=== PATIENT | male | born 1945 | race Caucasian/White ===

== ENCOUNTER 2021-03-19 13:15 | Emergency (ER) | payer MEDICARE ==
[~2021-03-19] VITALS: Ht 175 cm; Wt 98.6 kg
[~2021-03-19 13:15] MED LIST: ASCO500C14 PO; ASP81TEC PO; CALCIUM 500+VI1 EACH PO; CETI10CA PO; MTP25TSR PO; MULT1CAP27 PO; NAPR220C11 PO; calcium; vitamin c; zyrtec
[2021-03-19] MEDS ORDERED: ONDANSETRON 4 MG/2 ML (SDV) Z0FRAN IVP ONE (13:45)
[2021-03-19 13:51] LABS: BASOPHILS % (AUTO) 0 % (0-10); EOSINOPHILS # (AUTO) 0.2 10^3/uL (0.0-0.3); EOSINOPHILS % (AUTO) 2 % (0-10); HEMATOCRIT 48 % (40-54); HEMOGLOBIN 15.6 g/dL (13.3-17.7); LYMPHOCYTES % (AUTO) 24 % (12-44); MEAN CORPUSCULAR HEMOGLOBIN 29 pg (25-34); MEAN CORPUSCULAR HGB CONC 33 g/dL (32-36); MEAN CORPUSCULAR VOLUME 90 fL (80-99); MEAN PLATELET VOLUME 9.7 fL (9.0-12.2); MONOCYTES # (AUTO) 0.9 10^3/uL (0.0-1.0); MONOCYTES % (AUTO) 11 % (0-12); NEUTROPHILS # (AUTO) 5.2 10^3/uL (1.8-7.8); NEUTROPHILS % (AUTO) 63 % (42-75); PLATELET COUNT 399 10^3/uL (130-400); WHITE BLOOD COUNT 8.3 10^3/uL (4.3-11.0)
--- NOTE | 2021-03-19 13:51 | ED Abdominal Pain ---
General Stated Complaint: ABD FLUID BUILD UP Source of Information: Patient, Family Exam Limitations: No Limitations History of Present Illness Date Seen by Provider: Mar 19, 2021 Time Seen by Provider: 13:25 Initial Comments Patient to the ER by private conveyance with his daughter and chief complaint that he is having some abdominal distention and epigastric abdominal discomfort today. He had a colonoscopy by Dr. Barnes at [place] demonstrating a colon cancer back in October 2020, 5 months ago. He was sent to [facility] and because margins were not resected and it was not marked [facility] could not find the site where the cancer came from on subsequent sigmoidoscopy so he elected not to have any surgery. At a 3-month follow-up it was discovered he had mets to the omentum and he had a PET scan 2 weeks ago. The plan was to initiate chemotherapy locally. They're expecting a call back from local oncology anytime now. He is not having any fevers or chills. He is having some nausea with a little bit of emesis no hematemesis. No diarrhea or constipation. He has a history of diabetes and knee replacement surgically. 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 He did have some of this distention on of last week, 5 days ago but it was not felt bad enough to do anything about. Since it has worsened he was told to present to the ER. He is never had to have his abdomen drained before. No fevers or chills. Patient had some obstipation lately took some MiraLAX and since then has just had small amounts of loose stool. Patient is known to Dr. Phillips and had an echocardiogram in 2014 demonstrating EF of 50%; cardiac catheterization in 2011 demonstrating 20% ostial left main coronary artery stenosis. 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 Normal abdominal aorta. Allergies and Home Medications Allergies Coded Allergies: No Known Drug Allergies (Unverified , 10/24/11) Patient Home Medication List Home Medication List Reviewed: Yes Ascorbic Acid (Vitamin C) 500 Mg Capsule.sa, 500 MG PO DAILY, (Reported) Entered as Reported by: EM RITTER on 11/12/11 1141 Aspirin (Aspirin Ec 81 Mg) 81 Mg Tabec, 81 MG PO DAILY, (Reported) Entered as Reported by: GARRETT ALLISON on 10/24/11 1259 Calcium Carbonate/Vitamin D3 (Calcium 500+Vit D 400 Tab) 1 Each Tablet, 1 EACH PO DAILY, (Reported) Entered as Reported by: EM RITTER on 11/12/11 1141 Cetirizine Hcl (Zyrtec) 10 Mg Capsule, 10 MG PO DAILY, (Reported) Entered as Reported by: EM RITTER on 11/12/11 1141 Metoprolol Succinate (Toprol Xl 25MG) 25 Mg Tab.sr.24h, 25 MG PO DAILY, (Reported) Entered as Reported by: EM RITTER on 11/12/11 1142 Multivitamins (Multivitamins) 1 Each Capsule, 1 EACH PO DAILY, (Reported) Entered as Reported by: GARRETT ALLISON on 10/24/11 1259 Naproxen Sodium (Aleve) 220 Mg Capsule, 220 MG PO TID, (Reported) Entered as Reported by: GARRETT ALLISON on 10/24/11 1259 Ondansetron (Ondansetron Odt) 4 Mg Tab.rapdis, 4 MG PO Q6H PRN for NAUSEA/VOMITING Prescribed by: LUIS FELIPE ORONA on 03/19/21 1641 Review of Systems Review of Systems Constitutional: No chills, No fever; malaise EENTM: No Blurred Vision, No Double Vision Respiratory: Denies Cough, Denies Shortness of Air Cardiovascular: Denies Chest Pain, Denies Lightheadedness Gastrointestinal: See HPI, Abdomen Distended, Abdominal Pain (Bilat [place]); Denies Constipated, Denies Diarrhea; Nausea, Poor Fluid Intake, Vomiting Genitourinary: Denies Burning, Denies Discharge Musculoskeletal: No back pain, No gout Skin: No change in color, No pruritus, No rash Psychiatric/Neurological: Denies Anxiety, Denies Depressed All Other Systems Reviewed Negative Unless Noted: Yes Past Xzteuxl-Cerutm-Wubdtj Hx Patient Social History Tobacco Use?: No Use of E-Cig and/or Vaping dev: No Substance use?: No Alcohol Use?: No Physical Exam Vital Signs Vital Signs - First Documented 03/19/21 13:31 Temp 36.3 Pulse 86 Resp 18 B/P (MAP) 143/72 (95) Pulse Ox 94 O2 Delivery Room Air Capillary Refill : Height/Weight/BMI Height: 5'9.00" Weight: 240lbs. oz. 108.146414kp; BMI Method: General Appearance: WD/WN, mild distress HEENT: PERRL/EOMI, pharynx normal Neck: full range of motion, normal inspection Respiratory: lungs clear, normal breath sounds, no respiratory distress, no accessory muscle use Cardiovascular: normal peripheral pulses, regular rate, rhythm Gastrointestinal: normal bowel sounds, distended (Significant), tenderness (Diffuse, epigastric right upper quadrant without Hicks sign), mass (Midline epigastric region baseball sized), hepatomegaly (Mild), other (No caput medusa) Extremities: normal range of motion, normal capillary refill Neurologic/Psychiatric: alert, normal mood/affect, oriented x 3 Skin: normal color, warm/dry Progress/Results/Core Measures Results/Orders Lab Results Laboratory Tests Test 03/19/21 13:40 03/19/21 16:55 Range/Units White Blood Count 8.3 4.3-11.0 10^3/uL Red Blood Count 5.31 4.30-5.52 10^6/uL Hemoglobin 15.6 13.3-17.7 g/dL Hematocrit 48 40-54 % Mean Corpuscular Volume 90 80-99 fL Mean Corpuscular Hemoglobin 29 25-34 pg Mean Corpuscular Hemoglobin Concent 33 32-36 g/dL Red Cell Distribution Width 15.1 H 10.0-14.5 % Platelet Count 399 130-400 10^3/uL Mean Platelet Volume 9.7 9.0-12.2 fL Immature Granulocyte % (Auto) 1 % Neutrophils (%) (Auto) 63 42-75 % Lymphocytes (%) (Auto) 24 12-44 % Monocytes (%) (Auto) 11 0-12 % Eosinophils (%) (Auto) 2 0-10 % Basophils (%) (Auto) 0 0-10 % Neutrophils # (Auto) 5.2 1.8-7.8 10^3/uL Lymphocytes # (Auto) 2.0 1.0-4.0 10^3/uL Monocytes # (Auto) 0.9 0.0-1.0 10^3/uL Eosinophils # (Auto) 0.2 0.0-0.3 10^3/uL Basophils # (Auto) 0.0 0.0-0.1 10^3/uL Immature Granulocyte # (Auto) 0.0 0.0-0.1 10^3/uL Prothrombin Time 13.6 12.2-14.7 SEC INR Comment 1.0 0.8-1.4 Activated Partial Thromboplast Time 29 24-35 SEC Sodium Level 137 135-145 MMOL/L Potassium Level 4.2 3.6-5.0 MMOL/L Chloride Level 102 98-107 MMOL/L Carbon Dioxide Level 24 21-32 MMOL/L Anion Gap 11 5-14 MMOL/L Blood Urea Nitrogen 13 7-18 MG/DL Creatinine 0.87 0.60-1.30 MG/DL Estimat Glomerular Filtration Rate 85 BUN/Creatinine Ratio 15 Glucose Level 157 H 70-105 MG/DL Calcium Level 10.0 8.5-10.1 MG/DL Corrected Calcium 10.2 H 8.5-10.1 MG/DL Total Bilirubin 0.9 0.1-1.0 MG/DL Aspartate Amino Transf (AST/SGOT) 20 5-34 U/L Alanine Aminotransferase (ALT/SGPT) 21 0-55 U/L Alkaline Phosphatase 75 40-136 U/L C-Reactive Protein High Sensitivity 2.45 H 0.00-0.50 MG/DL Total Protein 6.8 6.4-8.2 GM/DL Albumin 3.8 3.2-4.5 GM/DL Lipase 19 8-78 U/L My Orders Orders - LUIS FELIPE ORONA Ondansetron Injection (Zofran Injectio (03/19/21 13:45) Cbc With Automated Diff (03/19/21 13:41) Comprehensive Metabolic Panel (03/19/21 13:41) Hs C Reactive Protein (03/19/21 13:41) Lipase (03/19/21 13:41) Ua Culture If Indicated (03/19/21 13:41) Protime With Inr (03/19/21 13:41) Partial Thromboplastin Time (03/19/21 13:41) Ct Abdomen/Pelvis W (03/19/21 13:56) Iohexol Injection (Omnipaque 350 Mg/Ml 1 (03/19/21 14:15) Received Contrast (Hold Metformin- Contr (03/19/21 14:15) Sodium Chloride Flush (Catheter Flush Sy (03/19/21 14:15) Ns (Ivpb) (Sodium Chloride 0.9% Ivpb Bag (03/19/21 14:15) Diatrizoate Meglum/Sodium 37% (Gastrogra (03/19/21 14:15) Us Guidance Needle [facility] [id number] (03/19/21 16:24) Body Fluid Culture (03/19/21 16:51) Total Protein,Body Fluid (03/19/21 16:51) Cytology Requistion | Nursing (03/19/21 16:51) Ldh,Body Fluid (03/19/21 16:55) Medications Given in ED Current Medications Medications Dose Ordered Sig/Robert Route Start Time Stop Time Status Last Admin Dose Admin Diatrizoate Meglum/ Diatrizoate Sod 30 ml ONCE ONCE PO 03/19/21 14:15 03/19/21 14:33 DC 03/19/21 15:19 30 ML Iohexol 100 ml ONCE ONCE IV 03/19/21 14:15 03/19/21 14:33 DC 03/19/21 15:19 100 ML Ondansetron HCl 8 mg ONCE ONCE IVP 03/19/21 13:45 03/19/21 13:46 DC 03/19/21 13:53 8 MG Sodium Chloride 10 ml NEEDED PRN IV 03/19/21 14:15 03/19/21 15:19 10 ML Sodium Chloride 100 ml ONCE ONCE IV 03/19/21 14:15 03/19/21 14:33 DC 03/19/21 15:19 80 ML Vital Signs/I&O 03/19/21 13:31 Temp 36.3 Pulse 86 Resp 18 B/P (MAP) 143/72 (95) Pulse Ox 94 O2 Delivery Room Air Progress Progress Note #1: Time: 13:51 Progress Note We will check some labs and get a CT of the abdomen and pelvis. Zofran 8 mg. Oral contrast. Suspect bowel obstruction less likely ascites Progress Note #2: Time: 17:[address] Hough and the medical student drained 3.5 cc of straw-colored serous ascites from the abdomen which significantly increased the comfort of the patient Diagnostic Imaging Diagonstic Imaging: CT (Oral and IV) Plain Films/CT/US/NM/MRI: abdomen, pelvis Comments [facility]. [place], [place] NAME: NORI AVERY [facility] REC#: [id number] PT STATUS: REG ER : 1945 PHYSICIAN: LUIS FELIPE ORONA MD ADMIT DATE: 03/19/21/ER Signed Date of Exam:03/19/21 CT ABDOMEN/PELVIS W PROCEDURE: CT abdomen and pelvis with contrast. TECHNIQUE: Multiple contiguous axial images were obtained through the abdomen and pelvis after administration of intravenous contrast. Auto Exposure Controls were utilized during the CT exam to meet ALARA standards for radiation dose reduction. All CT scans use one or more of the following dose optimizing techniques: automated exposure control, MA and/or KvP adjustment based on patient size and exam type or iterative reconstruction. INDICATION: Colon carcinoma and abdominal distention. COMPARISON: No prior studies are available for comparison. FINDINGS: Imaging through the lung bases demonstrates small left pleural effusion. There is a large amount of ascites in the upper abdomen in the perihepatic and perisplenic location. Small amount of fluid in the right lower quadrant is seen. No significant free fluid in the pelvis is identified. Liver contains a small circumscribed low-attenuation lesion in the left lobe 10 mm in size, indeterminate, too small to characterize. The gallbladder is unremarkable. There is no biliary ductal dilatation. The pancreas and spleen are unremarkable. No adrenal mass is detected. The right kidney is unremarkable. The left kidney contains a cyst measuring 7.8 cm in diameter. Aorta is heavily calcified but nonaneurysmal. There is heavy calcification in the iliac system as well. No central retroperitoneal lymphadenopathy is seen. There appears to be infiltration of the omentum in the anterior abdomen, concerning for omental caking. Bowel loops are normal in caliber. There is no evidence of obstruction. Bladder is decompressed. Prostate is unremarkable. Bony structures are nonacute. IMPRESSION: 1. Small left pleural effusion. 2. Large upper abdominal ascites. There is also infiltration and slight nodularity to the omentum, suggestive of omental caking. This can be seen with peritoneal carcinomatosis. No other significant abnormality is detected. Dictated by: Dictated on workstation # [id number] Dict: 03/19/21 1537 Trans: 03/19/21 1602 [id number] Interpreted by: ANDREA KRISHNAMURTHY MD Electronically signed by: ANDREA KRISHNAMURTHY MD 03/19/21 [id number] Reviewed: Reviewed by Me Consults : Consulting Physician: SARAH HOUGH DO Consults Notes Discussed the case with general surgery and he agrees to drain ascites. Outpatient follow-up afterwards. Ultrasound to the room. Departure Impression Primary Impression: Ascites Qualified Codes: R18.0 - Malignant ascites Disposition: 01 HOME, SELF-CARE Condition: Stable Departure-Patient Inst. Decision time for Depature: 16:45 Referrals: FERNIE MAZA MD (PCP) Primary Care Physician GARRETT CHINO (Family) Primary Care Physician SARAH HOUGH BOBAN N Patient Instructions: Fluid in the Belly (Ascites) (DC) Add. Discharge Instructions: Follow-up outpatient with Dr. Hough as directed. Call your primary care doctor to help you arrange an oncologist/cancer doctor locally. Scripts Ondansetron (Ondansetron Odt) 4 Mg Tab.rapdis 4 MG PO Q6H PRN for NAUSEA/VOMITING, #8 TAB 0 Refills Prov: LUIS FELIPE ORONA 03/19/21 Copy Copies To 1: SARAH HOUGH DO; NATALIE MILLER TITUS J Mar 19, 2021 13:51
[2021-03-19 13:57] LABS: ALBUMIN 3.8 GM/DL (3.2-4.5)
[2021-03-19 13:58] LABS: POTASSIUM 4.2 MMOL/L (3.6-5.0)
[2021-03-19 14:00] LABS: TOTAL PROTEIN 6.8 GM/DL (6.4-8.2)
[2021-03-19 14:02] LABS: BILIRUBIN,TOTAL 0.9 MG/DL (0.1-1.0); PROTHROMBIN TIME PATIENT 13.6 SEC (12.2-14.7)
[2021-03-19 14:04] LABS: CREATININE SERUM 0.87 MG/DL (0.60-1.30)
[2021-03-19] MEDS ORDERED: NS 100 ML (IVPB) BAG IV ONE (14:15)
[2021-03-19] MEDS ORDERED: CATHETER FLUSH 10 ML SYR IV PRN (14:15)
[2021-03-19] MEDS ORDERED: IOHEXOL 350 MG/ML 100 ML (OMNIPAQUE 350) VIAL IV ONE (14:15)
[2021-03-19] MEDS ORDERED: DIATRIZOATE MEGLUM/SODIUM 37% 120 ML (GASTROGRAFIN) PO ONE (14:15)
[2021-03-19] MEDS ORDERED: HOLD METFORMIN - RECEIVED CONTRAST 20 ML VIAL IV SCH (14:15)
--- NOTE | 2021-03-19 15:52 | Diagnostic Imaging Report ---
PROCEDURE: CT abdomen and pelvis with contrast. TECHNIQUE: Multiple contiguous axial images were obtained through the abdomen and pelvis after administration of intravenous contrast. Auto Exposure Controls were utilized during the CT exam to meet ALARA standards for radiation dose reduction. All CT scans use one or more of the following dose optimizing techniques: automated exposure control, MA and/or KvP adjustment based on patient size and exam type or iterative reconstruction. INDICATION: Colon carcinoma and abdominal distention. COMPARISON: No prior studies are available for comparison. FINDINGS: Imaging through the lung bases demonstrates small left pleural effusion. There is a large amount of ascites in the upper abdomen in the perihepatic and perisplenic location. Small amount of fluid in the right lower quadrant is seen. No significant free fluid in the pelvis is identified. Liver contains a small circumscribed low-attenuation lesion in the left lobe 10 mm in size, indeterminate, too small to characterize. The gallbladder is unremarkable. There is no biliary ductal dilatation. The pancreas and spleen are unremarkable. No adrenal mass is detected. The right kidney is unremarkable. The left kidney contains a cyst measuring 7.8 cm in diameter. Aorta is heavily calcified but nonaneurysmal. There is heavy calcification in the iliac system as well. No central retroperitoneal lymphadenopathy is seen. There appears to be infiltration of the omentum in the anterior abdomen, concerning for omental caking. Bowel loops are normal in caliber. There is no evidence of obstruction. Bladder is decompressed. Prostate is unremarkable. Bony structures are nonacute. IMPRESSION: 1. Small left pleural effusion. 2. Large upper abdominal ascites. There is also infiltration and slight nodularity to the omentum, suggestive of omental caking. This can be seen with peritoneal carcinomatosis. No other significant abnormality is detected. Dictated by: Dictated on workstation # [id number]
[2021-03-19] MEDS ORDERED: ONDA4TAB11 PO (16:41)
[2021-03-19 17:33] VITALS: BP 121/71
[2021-03-19 17:43] LABS: TOTAL PROTEIN,BODY FLUID 4.2 G/DL
--- NOTE | 2021-03-19 21:59 | Consultation - Surgery ---
History of Present Illness History of Present Illness Patient Consulted On(reymundo/time) 03/19/21 16:00 Date Seen by Provider: Mar 19, 2021 Time Seen by Provider: 16:00 History of Present Illness Consult requested by Dr. Chan for paracentesis. Patient seen and evaluated in the emergency department. Patient is a 75-year-old male who recently diagnosed with colon cancer with metastasis to the greater omentum. Patient began feeling up with fluid in his abdomen over the last week or so. He has become to the point where he is having more and more discomfort. He having pain more generalized. Patient having some nausea and emesis. Having early satiety. Patient having no hematemesis. Patient feels uncomfortable. Having some shortness of breath. Taking Zofran for nausea with some slight improvement however not working as well at this time. He has not had to have a paracentesis before. He is soon to be start taking chemotherapy but awaiting appointment with the cancer center here in [place]. He has done most of his work-up at . He denies any fever sweats chills or chest pain. Allergies and Home Medications Allergies Coded Allergies: No Known Drug Allergies (Unverified , 10/24/11) Patient Home Medication List Home Medication List Reviewed: Yes Ascorbic Acid (Vitamin C) 500 Mg Capsule.sa, 500 MG PO DAILY, (Reported) Entered as Reported by: EM RITTER on 11/12/11 1141 Aspirin (Aspirin Ec 81 Mg) 81 Mg Tabec, 81 MG PO DAILY, (Reported) Entered as Reported by: GARRETT ALLISON on 10/24/11 1259 Calcium Carbonate/Vitamin D3 (Calcium 500+Vit D 400 Tab) 1 Each Tablet, 1 EACH PO DAILY, (Reported) Entered as Reported by: EM RITTER on 11/12/11 1141 Cetirizine Hcl (Zyrtec) 10 Mg Capsule, 10 MG PO DAILY, (Reported) Entered as Reported by: EM RITTER on 11/12/11 1141 Metoprolol Succinate (Toprol Xl 25MG) 25 Mg Tab.sr.24h, 25 MG PO DAILY, (Reported) Entered as Reported by: EM RITTER on 11/12/11 1142 Multivitamins (Multivitamins) 1 Each Capsule, 1 EACH PO DAILY, (Reported) Entered as Reported by: GARRETT ALLISON on 10/24/11 1259 Naproxen Sodium (Aleve) 220 Mg Capsule, 220 MG PO TID, (Reported) Entered as Reported by: GARRETT ALLISON on 10/24/11 1259 Ondansetron (Ondansetron Odt) 4 Mg Tab.rapdis, 4 MG PO Q6H PRN for NAUSEA/VOMITING Prescribed by: LUIS FELIPE CHAN on 03/19/21 1641 Past Jcnegfu-Rxancr-Dubkrs Hx Patient Social History Alcohol Use?: No Immunizations Up To Date Date of Pneumonia Vaccine: November 12, 1999 Surgeries History of Surgeries: Yes Surgeries: Orthopedic Respiratory History of Respiratory Disorde: No Cardiovascular History of Cardiac Disorders: Yes (Paroxysmal atrial tachycardia) Neurological History of Neurological Disord: No Genitourinary History of Genitourinary Disor: No Gastrointestinal History of Gastrointestinal Di: Yes (Colon cancer) Musculoskeletal History of Musculoskeletal Dis: No Endocrine History of Endocrine Disorders: No HEENT History of HEENT Disorders: No Cancer Cancer: Colon Integumentary History of Skin or Integumenta: No Family Medical History Significant Family History: No Pertinent Family Hx, Heart Disease Review of Systems-General Constitutional: No chills, No diaphoresis EENTM: No blurred vision, No double vision Respiratory: No cough, No dyspnea on exertion Cardiovascular: No chest pain, No palpitations Gastrointestinal: abdominal pain, loss of appetite, nausea, vomiting Genitourinary: No decreased output, No discharge Musculoskeletal: No back pain, No joint pain Skin: No change in color, No change in hair/nails Psychiatric/Neurological: Denies Anxiety, Denies Depressed, Denies Emotional Problems All Other Systems Reviewed Negative Unless Noted: Yes (Negative excepted noted.) Physical Exam-General Problems Physical Exam Vital Signs Vital Signs - First Documented 03/19/21 13:31 Temp 36.3 Pulse 86 Resp 18 B/P (MAP) 143/72 (95) Pulse Ox 94 O2 Delivery Room Air Capillary Refill : Less Than 3 Seconds General Appearance: WD/WN, no apparent distress HEENT: PERRL/EOMI, normal ENT inspection Neck: non-tender, supple Respiratory: chest non-tender, no respiratory distress, no accessory muscle use, other (Breathing slightly uncomfortable) Cardiovascular: regular rate, rhythm, no JVD Gastrointestinal: distended, tenderness (Slight slight tenderness generalized, fluid wave) Rectal: deferred Back: normal inspection, no CVA tenderness, no vertebral tenderness Extremities: normal range of motion, non-tender, normal inspection Neurologic/Psychiatric: no motor/sensory deficits, alert, normal mood/affect, oriented x 3 Skin: normal color, warm/dry Lymphatic: no adenopathy Data Review Labs Laboratory Tests 03/19/21 13:40: White Blood Count 8.3, Red Blood Count 5.31, Hemoglobin 15.6, Hematocrit 48, Mean Corpuscular Volume 90, Mean Corpuscular Hemoglobin 29, Mean Corpuscular Hemoglobin Concent 33, Red Cell Distribution Width 15.1H, Platelet Count 399, Mean Platelet Volume 9.7, Immature Granulocyte % (Auto) 1, Neutrophils (%) (Auto) 63, Lymphocytes (%) (Auto) 24, Monocytes (%) (Auto) 11, Eosinophils (%) (Auto) 2, Basophils (%) (Auto) 0, Neutrophils # (Auto) 5.2, Lymphocytes # (Auto) 2.0, Monocytes # (Auto) 0.9, Eosinophils # (Auto) 0.2, Basophils # (Auto) 0.0, Immature Granulocyte # (Auto) 0.0, Prothrombin Time 13.6, INR Comment 1.0, Activated Partial Thromboplast Time 29, Sodium Level 137, Potassium Level 4.2, Chloride Level 102, Carbon Dioxide Level 24, Anion Gap 11, Blood Urea Nitrogen 13, Creatinine 0.87, Estimat Glomerular Filtration Rate 85, BUN/Creatinine Ratio 15, Glucose Level 157H, Calcium Level 10.0, Corrected Calcium 10.2H, Total Bilirubin 0.9, Aspartate Amino Transf (AST/SGOT) 20, Alanine Aminotransferase (ALT/SGPT) 21, Alkaline Phosphatase 75, C-Reactive Protein High Sensitivity 2.45H, Total Protein 6.8, Albumin 3.8, Lipase 19 03/19/21 16:55: Body Fluid Total Protein 4.2, Body Fluid Lactate Dehydrogenase 145 Assessment/Plan Assessment/Plan Assessment/Plan Symptomatic ascites Nausea and vomiting Colon cancer with carcinomatosis Patient was discussed risk and benefits of having paracentesis performed to help relieve some of his discomfort. And also hopefully decrease his overall symptoms. Patient understands risk and benefits and wishes to proceed. Patient fluid to be sent for evaluation. Patient states that he is awaiting appointment with oncology at cancer center here. If patient needs any assistance he is going to contact me for further assistance with appointment. Patient if has any further reaccumulation of fluid which he understands this may occur then he will contact me for paracentesis. Procedure ultrasound-guided paracentesis Patient laying in the supine position ultrasound was utilized to isolate a largest pocket of fluid for safest place to insert safety centesis needle and catheter. Once this was located the area was prepped and draped in sterile fashion timeout was performed. Local anesthetic of 1% lidocaine was then used to anesthetize the area a total of 3 mL was used. Once anesthetic effect took place an 11 blade scalpel was used to make a small skin incision. The safety centesis needle and catheter were then advanced through the abdominal wall until straw-colored fluid was returned. The catheter was then advanced and the needle was removed. A total of 3-1/2 L of straw-colored ascitic fluid was removed. The catheter was then removed and sterile bandage was applied. Patient tolerated procedure well without complications. SARAH HOUGH DO Mar 19, 2021 21:59
--- NOTE | 2021-03-21 07:57 | Diagnostic Imaging Report ---
INDICATION: Abdominal pain and ascites. Limited abdominal ultrasonography is performed in all 4 quadrants revealing [id number] ascites. Image obtained after paracentesis reveals good clearance of fluid. IMPRESSION: Resolution of [id number] ascites after paracentesis. Dictated by: Dictated on workstation # [id number]
[2021-03-28] MEDS ORDERED: ACET500P24 PO (12:52)
[2021-03-28] MEDS ORDERED: LISI10TA25 PO (12:52)
[2021-03-28] MEDS ORDERED: MTP25TSR PO (12:52)
[2021-03-28] MEDS ORDERED: METF-397 PO (12:52)
[2021-03-29] MEDS ORDERED: ONDN4T PO (15:04)
== END 2021-03-19 17:33 | disposition home or self-care (01) ==
LOC: EDUNIT# 13:15 → ER 13:18
DX: C18.7 Malignant neoplasm of sigmoid colon (principal); R18.8 Other ascites; E11.9 Type 2 diabetes mellitus without complications; Z79.82 Long term (current) use of aspirin
CPT/HCPCS: 36415; 74177; 76942; 80053; 83615; 83690; 84157; 85025; 85610; 85730; 86141; 87070; 87205; 88112; 88305; 96374

== ENCOUNTER 2021-03-28 11:54 | Outpatient (CLI) | payer MEDICARE ==
[~2021-03-28] VITALS: Ht 175 cm; Wt 95.2 kg
[~2021-03-28 11:54] MED LIST changes: +ONDA4TAB11 PO
[2021-03-28] MEDS ORDERED: METF-397 PO ×2 (12:52)
[2021-03-28] MEDS ORDERED: LISI10TA25 PO ×2 (12:52)
[2021-03-28] MEDS ORDERED: ACET500P24 PO ×2 (12:52)
[2021-03-28] MEDS ORDERED: MTP25TSR PO ×2 (12:52)
[2021-03-29] MEDS ORDERED: ONDN4T PO ×2 (15:04)
== END 2021-03-28 16:29 | disposition home or self-care (01) ==
LOC: PREOP 11:54
PROVIDERS: ATTEND Surgery
DX: Z01.818 Encounter for other preprocedural examination (principal)

== ENCOUNTER 2021-03-29 11:02 | Day surgery (SDC) | payer MEDICARE ==
[2021-03-29] VITALS (9 sets, daily range): BP systolic 117–147; BP diastolic 67–87
[~2021-03-29] VITALS: Ht 175 cm; Wt 95.2 kg
[~2021-03-29 11:02] MED LIST changes: +ACET500P24 PO; +LISI10TA25 PO; +METF-397 PO
[2021-03-29] MEDS ORDERED: ceFAZolin 2 GM IV Premixed 50 ML IV ONE (11:30)
[2021-03-29] MEDS ORDERED: 0.9% SODIUM CHLORIDE PF INJ 20 ML VIAL ONE (11:36)
[2021-03-29] MEDS ORDERED: LIDOCAINE/EPI 1%-1:100,000 (XYLOCAINE) 10 ML ONE (11:36)
[2021-03-29] MEDS ORDERED: HEParin (CENTRAL IV FLUSH) 500 UNIT/5 ML SYR ONE (11:36)
[2021-03-29] MEDS: LACTATED RINGERS 1,000 ML IV PRN ×2 (11:46→13:44)
[2021-03-29] MEDS ORDERED: MIDAZOLAM 2 MG/2 ML (VERSED) VIAL ONE (11:47)
[2021-03-29] MEDS ORDERED: PROPOFOL INJECTION 50 ML IV ONE (11:47)
--- NOTE | 2021-03-29 13:02 | Progress Note-Pre Operative ---
Pre-Operative Progress Note H&P Reviewed The H&P was reviewed, patient examined and no changes noted. Date Seen by Provider: Mar 29, 2021 Time Seen by Provider: 13:02 Date H&P Reviewed: Mar 29, 2021 Time H&P Reviewed: 13:02 Pre-Operative Diagnosis: adenocarcinoma colon, carcinomatosis SARAH HOUGH DO Mar 29, 2021 13:02
--- NOTE | 2021-03-29 14:34 | Diagnostic Imaging Report ---
INDICATION: Postoperative port placement EXAMINATION: Chest 03/29/2021 COMPARISON: 11/12/2011 FINDINGS: There is a chest port on the right with the tip in the mid to distal SVC. No pneumothorax is appreciated. Heart and pulmonary vasculature normal. Lungs clear. No infiltrates or effusions. No acute osseous abnormality. IMPRESSION: 1. Unremarkable appearance of the chest port with no pneumothorax appreciated. Dictated by: Dictated on workstation # [id number]
--- NOTE | 2021-03-29 15:01 | Progress Note-Post Operative ---
Post-Operative Progess Note Surgeon (s)/Credit Collection Specialist (s) Surgeon SARAH HOUGH DO Credit Collection Specialist: na Pre-Operative Diagnosis adenocarcinoma colon, carcinomatosis Post-Operative Diagnosis same Procedure & Operative Findings Date of Procedure 03/29/21 Procedure Performed/Findings PROCEDURE: Right internal jugular port placement using ultrasound guidance. COMPLICATIONS: None. INDICATIONS: The patient is a 75 year old male with adenocarcinoma colon. Patient understands the risks and benefits of port placement and wished to proceed with the procedure. Consent was signed on the chart. PROCEDURE: The patient was taken to the operating suite, was prepped and draped in the sterile fashion. A surgical pause was performed. Ultrasound was used to locate the internal jugular vein. Once located anesthetic was infiltrated above it. Using micro-access kit, the right internal vein was accessed. Dark nonpulsatile blood was withdrawn. The wire was inserted. Fluoroscopy assured proper placement. The needle was removed. The micro-access dilator was advanced over the wire and the wire was removed. The regular wire was inserted and fluoroscopy assured proper placement. The wire was then secured. Local anesthetic was used to anesthetize from the neck for tunneling down to the right chest and for pocket creation. A 15 blade scalpel was used to make an incision over the right chest. Cautery was used to dissect down to the pectoral fascia. A pocket was created with blunt dissection. The dilator sheath was then advanced over the wire under fluoroscopy and the dilator and wire were removed. The Groshong catheter was inserted through the sheath and the sheath was then removed. The Groshong wire was removed. The catheter was then tunneled to the right chest pocket. Fluoroscopy was used to cut to length and this was then attached to the port which was then placed within the pocket. The port was then accessed without difficulty. It was then flushed with saline and then heparin. The subcutaneous tissues were then reapproximated using 3-0 Vicryl. The areas were then washed and dried. Skin Affix was placed over incision. The insertion point of the neck Skin Affix was placed over the incision. The patient tolerated the procedure well without complication and was taken to recovery room in stable condition. Chest x-ray is pending. Anesthesia Type mac c local Estimated Blood Loss Estimated blood loss (mL): minimal Specimens/Packing Specimens Removed SARAH Lockhart DO Mar 29, 2021 15:01
--- NOTE | 2021-03-29 15:03 | Discharge Inst-Simple/Standard ---
Discharge Inst-Standard Patient Instructions/Follow Up Plan of Care/Instructions/FU: 2 weeks Dominic Activity as Tolerated: No Discharge Diet: Regular Diet Other Inst to Patient Follow up Appt: Make appointment for 2 week. Instructions: No lifting greater than 10 pounds. No strenuous activity. May shower in 24 hours, no tub bath or soaking. Use incentive spirometer at home as directed. No Smoking Skin/Wound Care: You have special glue over your incision that will fall off on it's own. Ice pack on 15 min off 30 min and repeat for first 48 hours. Symptoms to Report: Appetite Changes, Extremity Discoloration, Numbness/Tingling, Swelling Increased, Bleeding Excessive, Eyesight Changes, Pain Increased, Urine Color Change, Constipation(Persistent), Fever over 101 degree F, Pain/Pressure in chest, Urinating Difficulty, Cough Up/Vomit Blood, Heart Beat Irreg/Pounding, Pain/Pressure in jaw, Vaginal Bleeding Increase, Cramps in feet or legs, Lightheadedness, Pain/Pressure in shoulder, Diarrhea(Persistent), Memory Changes Suddenly, Questions/Concerns, Weight gain consecutive days, Dizziness/Fainting, Nausea/Vomiting, Shortness of Breath, Weight gain over 2 pounds If questions or concerns contact your physician Or seek help at emergency department. SARAH HOUGH DO Mar 29, 2021 15:03
[2021-03-29] MEDS ORDERED: ONDN4T PO ×2 (15:04)
--- NOTE | 2021-03-29 19:28 | Diagnostic Imaging Report ---
CLINICAL INDICATION: Patient with Port-A-Cath placement. EXAM: Limited intraoperative fluoroscopic image of the chest. One image is obtained. COMPARISON: 11/12/2011. FINDINGS AND IMPRESSION: Port-A-Cath is seen overlying the right chest with tip not well delineated on this exam. Follow-up x-ray would better evaluate. Please see clinician's report for more detail. Fluoroscopy was provided for clinician and a total of 26.7 seconds and 3.0 mGy was provided. Dictated by: Dictated on workstation # [id number]
== END 2021-03-29 15:55 | disposition home or self-care (01) ==
LOC: SDC 11:02
PROVIDERS: ATTEND Surgery
DX: C18.9 Malignant neoplasm of colon, unspecified (principal); C78.6 Secondary malignant neoplasm of retroperitoneum and peritoneum; I10 Essential (primary) hypertension; R18.8 Other ascites; E11.40 Type 2 diabetes mellitus with diabetic neuropathy, unspecified; Z79.899 Other long term (current) drug therapy; Z79.84 Long term (current) use of oral hypoglycemic drugs; Z79.82 Long term (current) use of aspirin; Z87.891 Personal history of nicotine dependence
CPT/HCPCS: 36561; 71045; 76000; 82947; 87081; C1788

== ENCOUNTER → 2021-05-23 | Outpatient (CLI) | payer MEDICARE ==
[~2021-05-23] MED LIST changes: +BARIUM SUSPENSION 2.1% (VANILLA SILQ) 450 ML PO ONE; +CATHETER FLUSH 10 ML SYR IV PRN; +HOLD METFORMIN - RECEIVED CONTRAST 20 ML VIAL IV SCH; +IOHEXOL 350 MG/ML 100 ML (OMNIPAQUE 350) VIAL IV ONE; +NS 100 ML (IVPB) BAG IV ONE; +ONDN4T PO
--- NOTE | 2021-05-23 17:18 | Diagnostic Imaging Report ---
EXAMINATION: CT chest with intravenous contrast, CT abdomen and pelvis without and with intravenous contrast. TECHNIQUE: Pre and post intravenous contrast axial imaging of the abdomen and pelvis and post contrast axial imaging of the chest were performed. All CT scans use one or more of the following dose optimizing techniques: automated exposure control, MA and/or KvP adjustment based on patient size and exam type or iterative reconstruction. HISTORY: History of colon cancer and peritoneal carcinomatosis. COMPARISON: CT 03/19/2021. FINDINGS: Thyroid: The thyroid is normal. Mediastinum: Heart size is normal without significant pericardial effusion. Calcifications of the aorta and coronary vessels. Thoracic aorta is normal in caliber. No suspicious lymphadenopathy. Lungs and airways: Mild background emphysematous changes of the lungs without consolidation, pleural effusion or pneumothorax. There are scattered calcified granulomas present. There is a 0.3 cm groundglass nodule within the right upper lobe (series 5 image 52). The airways are normal. Solid organs: The liver is normal without focal lesion. The gallbladder is normal. There is no biliary ductal dilation. Pancreas is normal. Spleen is normal. Adrenal glands are normal. Left renal cyst is unchanged and requires no follow-up. Kidneys are otherwise unremarkable without hydronephrosis. Bowel: The stomach and small bowel are normal without obstruction. The colon and appendix are normal. Peritoneum: There is decreased ascites compared to 03/19/2021. There is a trace amount of fluid seen. Mild stranding of the omentum is present. No suspicious lymphadenopathy or nodularity. Vasculature: Calcification of the aorta without aneurysm. Musculoskeletal: Degenerative changes of the spine without suspicious osseous lesion or compression fracture. Pelvis: The prostate gland is normal. The urinary bladder is normal. IMPRESSION: 1. Decreased ascites and omental/peritoneal nodularity compared to prior exam. There continues to be minimal stranding within the omentum and mesentery without suspicious nodularity. 2. No new finding of metastatic disease within the abdomen or pelvis. 3. A 0.3 cm right lower lobe groundglass nodule is indeterminate. Recommend attention on follow-up imaging. Dictated by: Dictated on workstation # [id number]
== END ==
LOC: RAD 10:15
PROVIDERS: ATTEND Nurse Practitioner Adult Health
DX: C80.1 Malignant (primary) neoplasm, unspecified (principal); C78.6 Secondary malignant neoplasm of retroperitoneum and peritoneum; R91.1 Solitary pulmonary nodule; Z85.038 Personal history of other malignant neoplasm of large intestine
CPT/HCPCS: 71260; 74178

== ENCOUNTER 2021-06-10 08:51 | Outpatient (RCR) | payer MEDICARE ==
[2021-04-01 09:13] LABS: BASOPHILS % (AUTO) 0 % (0-10); EOSINOPHILS # (AUTO) 0.2 10^3/uL (0.0-0.3); EOSINOPHILS % (AUTO) 2 % (0-10); HEMATOCRIT 47 % (40-54); HEMOGLOBIN 15.5 g/dL (13.3-17.7); LYMPHOCYTES # (AUTO) 1.5 10^3/uL (1.0-4.0); LYMPHOCYTES % (AUTO) 20 % (12-44); MEAN CORPUSCULAR HEMOGLOBIN 30 pg (25-34); MEAN CORPUSCULAR HGB CONC 33 g/dL (32-36); MEAN CORPUSCULAR VOLUME 90 fL (80-99); MEAN PLATELET VOLUME 9.6 fL (9.0-12.2); MONOCYTES # (AUTO) 0.8 10^3/uL (0.0-1.0); MONOCYTES % (AUTO) 10 % (0-12); NEUTROPHILS # (AUTO) 4.9 10^3/uL (1.8-7.8); NEUTROPHILS % (AUTO) 67 % (42-75); PLATELET COUNT 408 10^3/uL (130-400); WHITE BLOOD COUNT 7.3 10^3/uL (4.3-11.0)
[2021-04-01 09:35] LABS: ALBUMIN 3.3 GM/DL (3.2-4.5); BILIRUBIN,TOTAL 0.5 MG/DL (0.1-1.0); CALCIUM 9.4 MG/DL (8.5-10.1); CREATININE SERUM 0.96 MG/DL (0.60-1.30); MAGNESIUM 1.9 MG/DL (1.6-2.4); POTASSIUM 3.9 MMOL/L (3.6-5.0)
[2021-04-15 11:34] LABS: BASOPHILS % (AUTO) 0 % (0-10); EOSINOPHILS # (AUTO) 0.4 10^3/uL (0.0-0.3); EOSINOPHILS % (AUTO) 7 % (0-10); HEMATOCRIT 41 % (40-54); HEMOGLOBIN 13.4 g/dL (13.3-17.7); LYMPHOCYTES # (AUTO) 1.5 10^3/uL (1.0-4.0); LYMPHOCYTES % (AUTO) 28 % (12-44); MEAN CORPUSCULAR HEMOGLOBIN 30 pg (25-34); MEAN CORPUSCULAR HGB CONC 33 g/dL (32-36); MEAN CORPUSCULAR VOLUME 91 fL (80-99); MEAN PLATELET VOLUME 9.3 fL (9.0-12.2); MONOCYTES # (AUTO) 0.6 10^3/uL (0.0-1.0); MONOCYTES % (AUTO) 12 % (0-12); NEUTROPHILS # (AUTO) 2.9 10^3/uL (1.8-7.8); NEUTROPHILS % (AUTO) 53 % (42-75); PLATELET COUNT 204 10^3/uL (130-400); WHITE BLOOD COUNT 5.4 10^3/uL (4.3-11.0)
[2021-04-15 12:00] LABS: ALBUMIN 2.9 GM/DL (3.2-4.5); BILIRUBIN,TOTAL 0.3 MG/DL (0.1-1.0); CALCIUM 8.7 MG/DL (8.5-10.1); CREATININE SERUM 0.71 MG/DL (0.60-1.30); MAGNESIUM 1.6 MG/DL (1.6-2.4); POTASSIUM 3.7 MMOL/L (3.6-5.0); TOTAL PROTEIN 5.3 GM/DL (6.4-8.2)
--- NOTE | 2021-04-15 14:16 | Anesthesia-General Post-Op ---
MAC Patient Condition Mental Status/LOC: Same as Preop Cardiovascular: Satisfactory Nausea/Vomiting: Absent Respiratory: Satisfactory Pain: Controlled Complications: Absent Post Op Complications Complications None Follow Up Care/Instructions Patient Instructions None needed. Anesthesiology Discharge Order Discharge Order Patient is doing well, no complaints, stable vital signs, no apparent adverse anesthesia problems. No complications reported per nursing. RENA JIMÉNEZ CRNA Apr 15, 2021 14:15
[2021-04-22 09:57] LABS: BASOPHILS % (AUTO) 1 % (0-10); EOSINOPHILS # (AUTO) 0.6 10^3/uL (0.0-0.3); EOSINOPHILS % (AUTO) 12 % (0-10); HEMATOCRIT 43 % (40-54); HEMOGLOBIN 14.6 g/dL (13.3-17.7); LYMPHOCYTES # (AUTO) 1.4 10^3/uL (1.0-4.0); LYMPHOCYTES % (AUTO) 28 % (12-44); MEAN CORPUSCULAR HEMOGLOBIN 30 pg (25-34); MEAN CORPUSCULAR HGB CONC 34 g/dL (32-36); MEAN CORPUSCULAR VOLUME 90 fL (80-99); MEAN PLATELET VOLUME 9.4 fL (9.0-12.2); MONOCYTES # (AUTO) 0.5 10^3/uL (0.0-1.0); MONOCYTES % (AUTO) 11 % (0-12); NEUTROPHILS # (AUTO) 2.4 10^3/uL (1.8-7.8); NEUTROPHILS % (AUTO) 48 % (42-75); PLATELET COUNT 191 10^3/uL (130-400)
[2021-04-22 10:15] LABS: CALCIUM 9.2 MG/DL (8.5-10.1); CREATININE SERUM 0.76 MG/DL (0.60-1.30); POTASSIUM 4.1 MMOL/L (3.6-5.0)
[2021-04-30 10:00] LABS: BASOPHILS % (AUTO) 1 % (0-10); EOSINOPHILS # (AUTO) 0.3 10^3/uL (0.0-0.3); EOSINOPHILS % (AUTO) 6 % (0-10); HEMATOCRIT 42 % (40-54); HEMOGLOBIN 13.8 g/dL (13.3-17.7); LYMPHOCYTES # (AUTO) 2.2 10^3/uL (1.0-4.0); LYMPHOCYTES % (AUTO) 38 % (12-44); MEAN CORPUSCULAR HEMOGLOBIN 30 pg (25-34); MEAN CORPUSCULAR HGB CONC 33 g/dL (32-36); MEAN CORPUSCULAR VOLUME 91 fL (80-99); MONOCYTES # (AUTO) 0.9 10^3/uL (0.0-1.0); MONOCYTES % (AUTO) 15 % (0-12); NEUTROPHILS # (AUTO) 2.4 10^3/uL (1.8-7.8); NEUTROPHILS % (AUTO) 41 % (42-75); PLATELET COUNT 221 10^3/uL (130-400); WHITE BLOOD COUNT 5.9 10^3/uL (4.3-11.0)
[2021-04-30 10:15] LABS: ALBUMIN 3.4 GM/DL (3.2-4.5); BILIRUBIN,TOTAL 0.4 MG/DL (0.1-1.0); CREATININE SERUM 0.8 MG/DL (0.60-1.30); MAGNESIUM 1.7 MG/DL (1.6-2.4); TOTAL PROTEIN 6.3 GM/DL (6.4-8.2)
[2021-04-30 10:22] LABS: CALCIUM 9.5 MG/DL (8.5-10.1)
[2021-05-14 11:22] LABS: BASOPHILS % (AUTO) 1 % (0-10); EOSINOPHILS # (AUTO) 0.3 10^3/uL (0.0-0.3); EOSINOPHILS % (AUTO) 4 % (0-10); HEMATOCRIT 43 % (40-54); HEMOGLOBIN 14.7 g/dL (13.3-17.7); LYMPHOCYTES # (AUTO) 2.6 10^3/uL (1.0-4.0); LYMPHOCYTES % (AUTO) 34 % (12-44); MEAN CORPUSCULAR HEMOGLOBIN 31 pg (25-34); MEAN CORPUSCULAR HGB CONC 34 g/dL (32-36); MEAN CORPUSCULAR VOLUME 92 fL (80-99); MEAN PLATELET VOLUME 10.5 fL (9.0-12.2); MONOCYTES # (AUTO) 1.2 10^3/uL (0.0-1.0); MONOCYTES % (AUTO) 16 % (0-12); NEUTROPHILS # (AUTO) 3.4 10^3/uL (1.8-7.8); NEUTROPHILS % (AUTO) 45 % (42-75); PLATELET COUNT 175 10^3/uL (130-400); WHITE BLOOD COUNT 7.5 10^3/uL (4.3-11.0)
[2021-05-14 11:53] LABS: ALBUMIN 3.7 GM/DL (3.2-4.5); BILIRUBIN,TOTAL 0.5 MG/DL (0.1-1.0); CALCIUM 9.4 MG/DL (8.5-10.1); CREATININE SERUM 0.92 MG/DL (0.60-1.30); MAGNESIUM 1.7 MG/DL (1.6-2.4); POTASSIUM 4.3 MMOL/L (3.6-5.0); TOTAL PROTEIN 6.8 GM/DL (6.4-8.2)
[2021-05-21 09:59] LABS: BASOPHILS % (AUTO) 1 % (0-10); EOSINOPHILS # (AUTO) 0.4 10^3/uL (0.0-0.3); EOSINOPHILS % (AUTO) 7 % (0-10); HEMATOCRIT 42 % (40-54); HEMOGLOBIN 14.5 g/dL (13.3-17.7); LYMPHOCYTES # (AUTO) 2.4 10^3/uL (1.0-4.0); LYMPHOCYTES % (AUTO) 40 % (12-44); MEAN CORPUSCULAR HEMOGLOBIN 32 pg (25-34); MEAN CORPUSCULAR HGB CONC 34 g/dL (32-36); MEAN CORPUSCULAR VOLUME 92 fL (80-99); MEAN PLATELET VOLUME 9.9 fL (9.0-12.2); MONOCYTES # (AUTO) 0.9 10^3/uL (0.0-1.0); MONOCYTES % (AUTO) 15 % (0-12); NEUTROPHILS # (AUTO) 2.2 10^3/uL (1.8-7.8); NEUTROPHILS % (AUTO) 37 % (42-75); PLATELET COUNT 211 10^3/uL (130-400); WHITE BLOOD COUNT 6.1 10^3/uL (4.3-11.0)
[2021-05-21 10:21] LABS: CALCIUM 8.8 MG/DL (8.5-10.1); CREATININE SERUM 0.85 MG/DL (0.60-1.30); MAGNESIUM 1.6 MG/DL (1.6-2.4); POTASSIUM 4.2 MMOL/L (3.6-5.0)
[2021-05-27 09:57] LABS: BASOPHILS # (AUTO) 0.1 10^3/uL (0.0-0.1); BASOPHILS % (AUTO) 1 % (0-10); EOSINOPHILS # (AUTO) 0.3 10^3/uL (0.0-0.3); EOSINOPHILS % (AUTO) 3 % (0-10); HEMATOCRIT 43 % (40-54); HEMOGLOBIN 14.5 g/dL (13.3-17.7); LYMPHOCYTES # (AUTO) 2.1 10^3/uL (1.0-4.0); LYMPHOCYTES % (AUTO) 23 % (12-44); MEAN CORPUSCULAR HEMOGLOBIN 32 pg (25-34); MEAN CORPUSCULAR HGB CONC 34 g/dL (32-36); MEAN CORPUSCULAR VOLUME 94 fL (80-99); MEAN PLATELET VOLUME 10.3 fL (9.0-12.2); MONOCYTES # (AUTO) 1.5 10^3/uL (0.0-1.0); MONOCYTES % (AUTO) 16 % (0-12); NEUTROPHILS # (AUTO) 5.1 10^3/uL (1.8-7.8); NEUTROPHILS % (AUTO) 57 % (42-75); PLATELET COUNT 142 10^3/uL (130-400)
[2021-05-27 10:15] LABS: ALBUMIN 3.3 GM/DL (3.2-4.5); BILIRUBIN,TOTAL 0.6 MG/DL (0.1-1.0); CREATININE SERUM 0.84 MG/DL (0.60-1.30); MAGNESIUM 2.2 MG/DL (1.6-2.4); POTASSIUM 4.1 MMOL/L (3.6-5.0); TOTAL PROTEIN 6.2 GM/DL (6.4-8.2)
[2021-06-03 09:15] LABS: BASOPHILS % (AUTO) 0 % (0-10); EOSINOPHILS # (AUTO) 0.3 10^3/uL (0.0-0.3); EOSINOPHILS % (AUTO) 6 % (0-10); HEMATOCRIT 44 % (40-54); LYMPHOCYTES # (AUTO) 1.7 10^3/uL (1.0-4.0); LYMPHOCYTES % (AUTO) 34 % (12-44); MEAN CORPUSCULAR HEMOGLOBIN 32 pg (25-34); MEAN CORPUSCULAR HGB CONC 34 g/dL (32-36); MEAN CORPUSCULAR VOLUME 95 fL (80-99); MEAN PLATELET VOLUME 10.1 fL (9.0-12.2); MONOCYTES # (AUTO) 0.9 10^3/uL (0.0-1.0); MONOCYTES % (AUTO) 17 % (0-12); NEUTROPHILS # (AUTO) 2.2 10^3/uL (1.8-7.8); NEUTROPHILS % (AUTO) 43 % (42-75); PLATELET COUNT 142 10^3/uL (130-400)
[2021-06-03 09:32] LABS: CALCIUM 9.3 MG/DL (8.5-10.1); CREATININE SERUM 0.96 MG/DL (0.60-1.30); POTASSIUM 4.4 MMOL/L (3.6-5.0)
[~2021-06-10 08:51] MED LIST changes: +ALTEPLASE 2 MG (CATHFLO) CANCER CENTER IV ONE; -BARIUM SUSPENSION 2.1% (VANILLA SILQ) 450 ML PO ONE; -CATHETER FLUSH 10 ML SYR IV PRN; +D5W 500 ML IV (CANCER CTR) 500 ML IV SCH; +FAMOTIDINE 20MG/2ML IV (CANCER CTR) IV SCH; +FLUOROURACIL IV SCH; +FOSAPREPITANT (CANCER CENTER) 150 MG in NS (IVPB) CANCER CENTER ONLY 150 ML IV SCH; -HOLD METFORMIN - RECEIVED CONTRAST 20 ML VIAL IV SCH; -IOHEXOL 350 MG/ML 100 ML (OMNIPAQUE 350) VIAL IV ONE; +LEUCOVORIN CALCIUM 800 MG in D5W 250 ML IVPB (CANCER CTR) 250 ML IV SCH; -NS 100 ML (IVPB) BAG IV ONE; +NS IV 1000 ML (CANCER CTR) IV SCH; +NS IV SCH; +OXALIPLATIN 100 MG, OXALIPLATIN (GENERIC) 50 MG in D5W 250 ML IVPB (CANCER CTR) 250 ML IV SCH; +OXALIPLATIN 170 MG in D5W 250 ML IVPB (CANCER CTR) 250 ML IV SCH; +PANITUMUMAB IV SCH; +[UNRECOGNIZED DRUG - OTHER] IV SCH; +diphenhydrAMINE 25 MG TAB (BENADRYL) CANCER CENTER PO SCH
[2021-06-10] MEDS ORDERED: D5W 500 ML IV (CANCER CTR) 500 ML IV ONE (09:47)
[2021-06-10 10:03] LABS: BASOPHILS % (AUTO) 0 % (0-10); EOSINOPHILS # (AUTO) 0.2 10^3/uL (0.0-0.3); EOSINOPHILS % (AUTO) 3 % (0-10); HEMATOCRIT 42 % (40-54); HEMOGLOBIN 14.6 g/dL (13.3-17.7); LYMPHOCYTES # (AUTO) 1.6 10^3/uL (1.0-4.0); LYMPHOCYTES % (AUTO) 34 % (12-44); MEAN CORPUSCULAR HEMOGLOBIN 32 pg (25-34); MEAN CORPUSCULAR HGB CONC 35 g/dL (32-36); MEAN CORPUSCULAR VOLUME 93 fL (80-99); MEAN PLATELET VOLUME 10.9 fL (9.0-12.2); MONOCYTES # (AUTO) 0.7 10^3/uL (0.0-1.0); MONOCYTES % (AUTO) 15 % (0-12); NEUTROPHILS # (AUTO) 2.3 10^3/uL (1.8-7.8); NEUTROPHILS % (AUTO) 48 % (42-75); PLATELET COUNT 131 10^3/uL (130-400); WHITE BLOOD COUNT 4.9 10^3/uL (4.3-11.0)
[2021-06-10 10:19] LABS: ALBUMIN 3.5 GM/DL (3.2-4.5); BILIRUBIN,TOTAL 0.7 MG/DL (0.1-1.0); CREATININE SERUM 0.81 MG/DL (0.60-1.30); POTASSIUM 4.2 MMOL/L (3.6-5.0); TOTAL PROTEIN 6.7 GM/DL (6.4-8.2)
== END 2021-06-20 | disposition home or self-care (01) ==
LOC: ONC 08:51
PROVIDERS: ATTEND Internal Medicine Hematology & Oncology
DX: Z51.11 Encounter for antineoplastic chemotherapy (principal); C18.9 Malignant neoplasm of colon, unspecified; C78.6 Secondary malignant neoplasm of retroperitoneum and peritoneum; I10 Essential (primary) hypertension; E11.9 Type 2 diabetes mellitus without complications; I25.10 Atherosclerotic heart disease of native coronary artery without angina pectoris; E78.2 Mixed hyperlipidemia; Z82.49 Family history of ischemic heart disease and other diseases of the circulatory system
CPT/HCPCS: 36415; 36591; 36593; 80048; 80053; 82378; 83735; 85025; 96367; 96368; 96375; 96411; 96413; 96415; 96416; 96417; 99213; 99214

== ENCOUNTER 2021-06-24 09:25 | Outpatient (RCR) | payer MEDICARE ==
[~2021-06-24 09:25] MED LIST changes: -ALTEPLASE 2 MG (CATHFLO) CANCER CENTER IV ONE; -FLUOROURACIL IV SCH; -NS IV SCH; -OXALIPLATIN 170 MG in D5W 250 ML IVPB (CANCER CTR) 250 ML IV SCH; -PANITUMUMAB IV SCH; -[UNRECOGNIZED DRUG - OTHER] IV SCH
[2021-06-24 10:42] LABS: BASOPHILS % (AUTO) 0 % (0-10); EOSINOPHILS # (AUTO) 0.2 10^3/uL (0.0-0.3); EOSINOPHILS % (AUTO) 3 % (0-10); HEMATOCRIT 42 % (40-54); HEMOGLOBIN 14.1 g/dL (13.3-17.7); LYMPHOCYTES # (AUTO) 1.6 10^3/uL (1.0-4.0); LYMPHOCYTES % (AUTO) 28 % (12-44); MEAN CORPUSCULAR HEMOGLOBIN 32 pg (25-34); MEAN CORPUSCULAR HGB CONC 34 g/dL (32-36); MEAN CORPUSCULAR VOLUME 96 fL (80-99); MEAN PLATELET VOLUME 10.5 fL (9.0-12.2); MONOCYTES # (AUTO) 0.8 10^3/uL (0.0-1.0); MONOCYTES % (AUTO) 13 % (0-12); NEUTROPHILS # (AUTO) 3.2 10^3/uL (1.8-7.8); NEUTROPHILS % (AUTO) 55 % (42-75); PLATELET COUNT 171 10^3/uL (130-400); WHITE BLOOD COUNT 5.8 10^3/uL (4.3-11.0)
[2021-06-24] MEDS ORDERED: OXALIPLATIN 100 MG, OXALIPLATIN (GENERIC) 20 MG in D5W 250 ML IVPB (CANCER CTR) 250 ML IV SCH (11:00)
[2021-06-24 11:03] LABS: ALBUMIN 3.5 GM/DL (3.2-4.5); BILIRUBIN,TOTAL 0.8 MG/DL (0.1-1.0); CALCIUM 9.4 MG/DL (8.5-10.1); CREATININE SERUM 0.89 MG/DL (0.60-1.30); POTASSIUM 3.9 MMOL/L (3.6-5.0); TOTAL PROTEIN 6.8 GM/DL (6.4-8.2)
== END 2021-07-05 | disposition home or self-care (01) ==
LOC: ONC 09:25
PROVIDERS: ATTEND Internal Medicine Hematology & Oncology
DX: Z51.11 Encounter for antineoplastic chemotherapy (principal); C18.9 Malignant neoplasm of colon, unspecified; C78.6 Secondary malignant neoplasm of retroperitoneum and peritoneum; I10 Essential (primary) hypertension; E11.9 Type 2 diabetes mellitus without complications; I25.10 Atherosclerotic heart disease of native coronary artery without angina pectoris; E78.2 Mixed hyperlipidemia; E66.9 Obesity, unspecified; Z82.49 Family history of ischemic heart disease and other diseases of the circulatory system
CPT/HCPCS: 80053; 82378; 85025; 96367; 96368; 96375; 96411; 96413; 96521; G0463; 36415; 99213

== ENCOUNTER 2021-07-22 12:40 | Emergency (ER) | payer MEDICARE ==
[~2021-07-22] VITALS: Ht 177 cm; Wt 97.1 kg
[~2021-07-22 12:40] MED LIST changes: -D5W 500 ML IV (CANCER CTR) 500 ML IV SCH; -FAMOTIDINE 20MG/2ML IV (CANCER CTR) IV SCH; -FOSAPREPITANT (CANCER CENTER) 150 MG in NS (IVPB) CANCER CENTER ONLY 150 ML IV SCH; -LEUCOVORIN CALCIUM 800 MG in D5W 250 ML IVPB (CANCER CTR) 250 ML IV SCH; -NS IV 1000 ML (CANCER CTR) IV SCH; -OXALIPLATIN 100 MG, OXALIPLATIN (GENERIC) 50 MG in D5W 250 ML IVPB (CANCER CTR) 250 ML IV SCH; -diphenhydrAMINE 25 MG TAB (BENADRYL) CANCER CENTER PO SCH
[2021-07-22] MEDS ORDERED: ONDANSETRON 4 MG/2 ML (SDV) Z0FRAN ONE (12:47)
--- NOTE | 2021-07-22 12:57 | ED General ---
General Chief Complaint: Code Blue Stated Complaint: S/P CODE Nursing Triage Note: PT TO RM [facility] FROM [facility] FOR POST CODE. PT WAS RECEIVING DOSE OF CHEMO WHEN HE BECAME UNRESONSIVE AND LOST PULSE. PT HAD ONE ROUND OF CPR. ROSC ACHIEVED. PT IS ALERT AND ORIENTED AT TIME OF TRIAGE. Source of Information: Patient Exam Limitations: No Limitations (FELISHA SANCHEZ APRN) History of Present Illness Date Seen by Provider: Jul 22, 2021 Time Seen by Provider: 12:40 Initial Comments This is a 75 yo female who presented to the ER via cart from the [facility] for possible post code in the infusion room. Dr. Price present with patient. States he was receiving Oxaliplatin and developed adverse reaction. He became diaphoretic, pale, and passed out. Nursing staff did not feel pulse and CPR was initiated. Within a few minutes patient roused and was awake and alert. At this time he feels nauseated, dizzy, and diaphoretic. Dr. Price states patients are more likely to have adverse reaction to oxaliplatin the more doses a patient receives. (FELISHA SANCHEZ APRN) Allergies and Home Medications Allergies Coded Allergies: oxaliplatin (Verified Allergy, Severe, Anaphylaxis, 07/23/21) Patient Home Medication List Home Medication List Reviewed: Yes (FELISHA SANCHEZ APRN) Acetaminophen (Tylenol Extra Strength) 500 Mg Powd.pack, 500 MG PO PRN PRN for PAIN-MILD (1-4), (Reported) Entered as Reported by: MICHELLE LIMON on 03/28/21 1252 Lisinopril (Lisinopril) 10 Mg Tablet, 10 MG PO DAILY, (Reported) Entered as Reported by: MICHELLE LIMON on 03/28/21 1252 Metformin HCl (Metformin HCl) 500 Mg Tablet, 500 MG PO BID, (Reported) Entered as Reported by: MICHELLE LIMON on 03/28/21 1252 Metoprolol Succinate (Metoprolol Succinate) 25 Mg Tab.er.24h, 25 MG PO DAILY, (Reported) Entered as Reported by: MICHELLE LIMON on 03/28/21 1252 Ondansetron HCl (Zofran) 4 Mg Tab, 4 MG PO Q6H Prescribed by: SARAH HOUGH on 03/29/21 5332 Review of Systems Review of Systems Constitutional: diaphoresis, weakness EENTM: no symptoms reported Respiratory: no symptoms reported Cardiovascular: No chest pain; syncope Gastrointestinal: nausea, vomiting Genitourinary: no symptoms reported Musculoskeletal: no symptoms reported Skin: no symptoms reported Psychiatric/Neurological: No Symptoms Reported Hematologic/Lymphatic: No Symptoms Reported Immunological/Allergic: no symptoms reported (FELISHA SANCHEZ APRN) Past Ejbvyww-Kwutrm-Beuauu Hx Patient Social History Tobacco Use?: No Use of E-Cig and/or Vaping dev: No Substance use?: No Alcohol Use?: No (FELISHA SANCHEZ APRN) Immunizations Up To Date First/Initial COVID19 Vaccinat: August COVID19 Vaccination Jeremiah: September COVID19 Vaccination Date: AUGUST (FELISHA SANCHEZ APRN) Seasonal Allergies Seasonal Allergies: Yes (FELISHA SANCHEZ APRN) Past Medical History Surgery/Hospitalization HX: STAGE 4 COLON CANCER Surgeries: Yes Eye Surgery, Orthopedic Respiratory: No Currently Using CPAP: No Currently Using BIPAP: No Cardiac: Yes (Paroxysmal atrial tachycardia) Neurological: No Genitourinary: No Gastrointestinal: Yes (Colon/Rectal cancer) Musculoskeletal: No Endocrine: Yes Diabetes, Non-Insulin dep HEENT: No Cancer: Yes (Colon/rectal) Colon Psychosocial: No Integumentary: No Blood Disorders: No (FELISHA SANCHEZ APRN) Family Medical History No Pertinent Family Hx, Heart Disease (FELISHA SANCHEZ APRN) Physical Exam Vital Signs Vital Signs - First Documented 07/22/21 12:40 Temp 35.6 Pulse 73 Resp 16 B/P (MAP) 116/57 (76) Pulse Ox 96 O2 Delivery Non Rebreather O2 Flow Rate 15.00 (CARLOS BEAVERS MD) Vital Signs Capillary Refill : Less Than 3 Seconds (FELISHA SANCHEZ APRN) Height, Weight, BMI Height: 5'9.00" Weight: 240lbs. oz. 108.095258gz; 30.00 BMI Method: General Appearance: No Apparent Distress, WD/WN Eyes: Bilateral Eye Normal Inspection, Bilateral Eye PERRL, Bilateral Eye EOMI HEENT: PERRL/EOMI, Normal ENT Inspection Neck: Normal Inspection, Non Tender, Supple Respiratory: Lungs Clear, Normal Breath Sounds, No Accessory Muscle Use, No Respiratory Distress Cardiovascular: Regular Rate, Rhythm, No Gallop, Normal Peripheral Pulses Gastrointestinal: Normal Bowel Sounds, No Organomegaly, Non Tender, Soft Back: Normal Inspection, No Vertebral Tenderness Extremity: Normal Inspection, Normal Range of Motion Neurologic/Psychiatric: Alert, Oriented x3, No Motor/Sensory Deficits, Normal Mood/Affect Skin: Normal Color, Warm/Dry (FELISHA SANCHEZ APRN) Progress/Results/Core Measures Suspected Sepsis SIRS Temperature: Pulse: 73 Respiratory Rate: 16 Laboratory Tests 07/22/21 13:04: White Blood Count 6.1 Blood Pressure 116 /57 Mean: 76 Laboratory Tests 07/22/21 13:04: Creatinine 1.10, INR Comment 1.0, Platelet Count 174, Total Bilirubin 0.6 (FELISHA SANCHEZ APRN) Results/Orders Lab Results Laboratory Tests Test 07/22/21 13:04 07/22/21 16:06 Range/Units White Blood Count 6.1 4.3-11.0 10^3/uL Red Blood Count 4.59 4.30-5.52 10^6/uL Hemoglobin 15.6 13.3-17.7 g/dL Hematocrit 46 40-54 % Mean Corpuscular Volume 99 80-99 fL Mean Corpuscular Hemoglobin 34 25-34 pg Mean Corpuscular Hemoglobin Concent 34 32-36 g/dL Red Cell Distribution Width 15.9 H 10.0-14.5 % Platelet Count 174 130-400 10^3/uL Mean Platelet Volume 9.8 9.0-12.2 fL Immature Granulocyte % (Auto) 1 % Neutrophils (%) (Auto) 48 42-75 % Lymphocytes (%) (Auto) 41 12-44 % Monocytes (%) (Auto) 10 0-12 % Eosinophils (%) (Auto) 1 0-10 % Basophils (%) (Auto) 0 0-10 % Neutrophils # (Auto) 2.9 1.8-7.8 10^3/uL Lymphocytes # (Auto) 2.5 1.0-4.0 10^3/uL Monocytes # (Auto) 0.6 0.0-1.0 10^3/uL Eosinophils # (Auto) 0.1 0.0-0.3 10^3/uL Basophils # (Auto) 0.0 0.0-0.1 10^3/uL Immature Granulocyte # (Auto) 0.0 0.0-0.1 10^3/uL Prothrombin Time 13.7 12.2-14.7 SEC INR Comment 1.0 0.8-1.4 Activated Partial Thromboplast Time 27 24-35 SEC Sodium Level 135 135-145 MMOL/L Potassium Level 3.8 3.6-5.0 MMOL/L Chloride Level 104 98-107 MMOL/L Carbon Dioxide Level 20 L 21-32 MMOL/L Anion Gap 11 5-14 MMOL/L Blood Urea Nitrogen 13 7-18 MG/DL Creatinine 1.10 0.60-1.30 MG/DL Estimat Glomerular Filtration Rate 69 BUN/Creatinine Ratio 12 Glucose Level 250 H 70-105 MG/DL Calcium Level 9.2 8.5-10.1 MG/DL Corrected Calcium 9.4 8.5-10.1 MG/DL Magnesium Level 1.9 1.6-2.4 MG/DL Total Bilirubin 0.6 0.1-1.0 MG/DL Aspartate Amino Transf (AST/SGOT) 29 5-34 U/L Alanine Aminotransferase (ALT/SGPT) 20 0-55 U/L Alkaline Phosphatase 79 40-136 U/L Myoglobin 28.6 29.8 10.0-92.0 NG/ML Troponin I < 0.028 < 0.028 <0.028 NG/ML Total Protein 6.6 6.4-8.2 GM/DL Albumin 3.7 3.2-4.5 GM/DL Creatine Kinase MB 1.5 <6.6 NG/ML (CARLOS BEAVERS MD) My Orders Orders - CARLOS BEAVERS MD Cbc With Automated Diff (07/22/21 12:48) Magnesium (07/22/21 12:48) Chest 1 View, Ap/Pa Only (07/22/21 12:48) Ekg Tracing (07/22/21 12:48) Comprehensive Metabolic Panel (07/22/21 12:48) Myoglobin Serum (07/22/21 12:48) Protime With Inr (07/22/21 12:48) Partial Thromboplastin Time (07/22/21 12:48) O2 (07/22/21 12:48) Monitor-Rhythm Ecg Trace Only (07/22/21 12:48) Ed Iv/Invasive Line Start (07/22/21 12:48) Troponin I Navarro (07/22/21 12:48) Ondansetron Injection (Zofran Injectio (07/22/21 12:47) (CARLOS BEAVERS MD) Vital Signs/I&O 07/22/21 07/22/21 12:40 17:44 Temp 35.6 Pulse 73 65 Resp 16 20 B/P (MAP) 116/57 (76) 151/81 Pulse Ox 96 97 O2 Delivery Non Rebreather Room Air O2 Flow Rate 15.00 (CARLOS BEAVERS MD) Vital Signs/I&O Capillary Refill : Less Than 3 Seconds (FELISHA SANCHEZ APRN) Blood Pressure Mean: 76 Progress Note : Progress Note Upon arrival patient extremely nauseated and vomiting. Was reportedly given Solumedrol and Benadryl at [facility] after adverse reaction. Orders placed for Zofran 8mg IVP in ED. Will initiate cardiac workup as there was concerns patient may have had 2 minute period of cardiac arrest. Cardiac workup negative. Discussed plan to have follow up with Dr. Hough on Thursday for evaluation of port. Updated Dr. Price on patient status. Will have him follow up in cancer center later this week. Discharge plan reviewed with patient and he is agreeable with plan. (FELISHA SANCHEZ APRN) ECG Initial ECG Impression Date: Jul 22, 2021 Initial ECG Impression Time: 12:51 Initial ECG Rate: 70 Initial ECG Rhythm: Normal Sinus Initial ECG Intervals: Normal Initial ECG Impression: Nonspecific Changes Initial ECG Comparisson: Unchanged (FELISHA SANCHEZ APRN) Diagnostic Imaging Diagonstic Imaging: Xray Plain Films/CT/US/NM/MRI: chest Comments [facility] [place], [place] NAME: NORI AVERY [facility] REC#: [id number] PT STATUS: REG ER : 1945 PHYSICIAN: CARLOS BEAVERS MD ADMIT DATE: 07/22/21/ER Signed Date of Exam:07/22/21 CHEST 1 VIEW, AP/PA ONLY INDICATION: Chest pain Frontal chest obtained at 2:07 p.m. and compared to 03/29/2021. Heart is mildly enlarged. There is mild central vascular prominence. There is some new infiltrate in the left perihilar region, with questionable cavitation. There is no pneumothorax or pleural fluid. Compared to the prior study, the right-sided Port-A-Cath has changed position, the catheter is looped over the right IJ with tip overlying the right IJ in the lower neck. IMPRESSION: Cardiomegaly and mild central vascular congestion. There is some new infiltrate in the left perihilar region with question of cavitation. Followup is recommended. Malpositioned right-sided Port-A-Cath catheter has migrated to the right internal jugular vein compared to the prior study. Dictated by: Dictated on workstation # [id number] Dict: 07/22/21 1405 Trans: 07/22/21 1520 CVB [id number] Interpreted by: LIOR MCCRACKEN MD Electronically signed by: LIOR MCCRACKEN MD 07/22/21 1520 (FELISHA SANCHEZ APRN) Departure Communication (Admissions) Time/Spoke to Consulting Phy: 17:00 Discussed findings of CXR with Dr. Hough. Will have patient follow up in his office on Thursday to further investigate misposition port. Will have patient follow up with Dr. Price for treatment options and CXR findings. (FELISHA SANCHEZ LOAD OUT SUPERVISOR) Impression Primary Impression: Chemotherapy adverse reaction Disposition: HOME, SELF-CARE Condition: Improved Departure-Patient Inst. Decision time for Depature: 17:04 (FELISHA SANCHEZ LOAD OUT SUPERVISOR) Referrals: MARSHALL NOLAN MD (PCP/Family) Primary Care Physician Patient Instructions: Adverse Drug Reactions, Adult (DC) Add. Discharge Instructions: Plan: 1. Follow up with Dr. Hough on ThursdayJuly 24 at 3:45pm to discuss your port. 2. Call the Cancer Center to discuss your treatment options, please call tomorrow. 3. You can take another dose of Benadryl for nausea if needed before bed tonight. 4. Return to ER for any new, concerning, or worsening symptoms (chest pain, shortness of breath, persistent nausea). All discharge instructions reviewed with patient and/or family. Voiced understanding. ATTENDING PHYSICIAN NOTE: I was physically present as attending physician in the emergency department during the care of this patient, but I was not directly involved in the decision making or delivery of care for this patient. (CARLOS BEAVERS MD) FELISHA SANCHEZ APRN Jul 22, 2021 12:56 CARLOS BEAVERS MD Jul 28, 2021 06:54
[2021-07-22] MEDS ORDERED: ONDANSETRON 4 MG/2 ML (SDV) Z0FRAN IVP ONE ×2 (13:00→13:30)
[2021-07-22 13:14] LABS: BASOPHILS % (AUTO) 0 % (0-10); EOSINOPHILS # (AUTO) 0.1 10^3/uL (0.0-0.3); EOSINOPHILS % (AUTO) 1 % (0-10); HEMATOCRIT 46 % (40-54); HEMOGLOBIN 15.6 g/dL (13.3-17.7); LYMPHOCYTES # (AUTO) 2.5 10^3/uL (1.0-4.0); LYMPHOCYTES % (AUTO) 41 % (12-44); MEAN CORPUSCULAR HEMOGLOBIN 34 pg (25-34); MEAN CORPUSCULAR HGB CONC 34 g/dL (32-36); MEAN CORPUSCULAR VOLUME 99 fL (80-99); MEAN PLATELET VOLUME 9.8 fL (9.0-12.2); MONOCYTES # (AUTO) 0.6 10^3/uL (0.0-1.0); MONOCYTES % (AUTO) 10 % (0-12); NEUTROPHILS # (AUTO) 2.9 10^3/uL (1.8-7.8); NEUTROPHILS % (AUTO) 48 % (42-75); PLATELET COUNT 174 10^3/uL (130-400); WHITE BLOOD COUNT 6.1 10^3/uL (4.3-11.0)
[2021-07-22 13:27] LABS: ALBUMIN 3.7 GM/DL (3.2-4.5); POTASSIUM 3.8 MMOL/L (3.6-5.0)
[2021-07-22 13:28] LABS: CALCIUM 9.2 MG/DL (8.5-10.1); PROTHROMBIN TIME PATIENT 13.7 SEC (12.2-14.7)
[2021-07-22 13:29] LABS: TOTAL PROTEIN 6.6 GM/DL (6.4-8.2)
[2021-07-22 13:31] LABS: BILIRUBIN,TOTAL 0.6 MG/DL (0.1-1.0)
[2021-07-22 13:33] LABS: CREATININE SERUM 1.1 MG/DL (0.60-1.30)
[2021-07-22 13:35] LABS: MAGNESIUM 1.9 MG/DL (1.6-2.4)
--- NOTE | 2021-07-22 14:09 | Diagnostic Imaging Report ---
INDICATION: Chest pain Frontal chest obtained at 2:07 p.m. and compared to 03/29/2021. Heart is mildly enlarged. There is mild central vascular prominence. There is some new infiltrate in the left perihilar region, with questionable cavitation. There is no pneumothorax or pleural fluid. Compared to the prior study, the right-sided Port-A-Cath has changed position, the catheter is looped over the right IJ with tip overlying the right IJ in the lower neck. IMPRESSION: Cardiomegaly and mild central vascular congestion. There is some new infiltrate in the left perihilar region with question of cavitation. Followup is recommended. Malpositioned right-sided Port-A-Cath catheter has migrated to the right internal jugular vein compared to the prior study. Dictated by: Dictated on workstation # [id number]
[2021-07-22 16:34] LABS: CREATINE KINASE MB 1.5 NG/ML (<6.6)
[2021-07-22 17:44] VITALS: BP 151/81
== END 2021-07-22 17:44 | disposition home or self-care (01) ==
LOC: EDUNIT# 12:43 → ER 12:44
DX: T45.1X5A Adverse effect of antineoplastic and immunosuppressive drugs, initial encounter (principal); E11.9 Type 2 diabetes mellitus without complications; Z79.84 Long term (current) use of oral hypoglycemic drugs
CPT/HCPCS: 36415; 71045; 80053; 82553; 83735; 83874; 84484; 85025; 85610; 85730; 93005; 93041; 96374

== ENCOUNTER 2021-07-29 07:56 | Day surgery (SDC) | payer MEDICARE ==
[~2021-07-29] VITALS: Ht 175 cm; Wt 99.0 kg
[2021-07-29] VITALS (8 sets, daily range): BP systolic 121–162; BP diastolic 71–90
[2021-07-29] MEDS ORDERED: NS IV 1000 ML 1,000 ML IV SCH ×2 (08:00→10:45)
[2021-07-29] MEDS ORDERED: NS IV 1000 ML 1,000 ML ONE (08:05)
[2021-07-29] MEDS ORDERED: HEParin (CATH LAB) 1,000 ML IV ONE ×2 (08:05→08:50)
[2021-07-29] MEDS ORDERED: LIDOCAINE 1% INJ 20 ML VIAL ONE (08:05)
[2021-07-29] MEDS ORDERED: MIDAZOLAM 5 MG/5 ML (VERSED) VIAL ONE (08:10)
[2021-07-29] MEDS ORDERED: fentaNYL INJ 100 MCG/2 ML AMP ONE (08:10)
--- NOTE | 2021-07-29 08:28 | Diagnostic Imaging Report ---
INDICATION: Port-A-Cath assessment Single AP view of the chest is obtained with comparison made to study of 07/22/2021. Right anterior chest wall port remains in place with catheter tip directed cephalad in the right neck likely within the jugular vein. There is continued left perihilar atelectasis and/or pneumonitis. There is no evidence of pneumothorax. IMPRESSION: Abnormal positioning of catheter from right anterior port. Catheter is directed cephalad into the right neck. Dictated by: Dictated on workstation # [id number]
[2021-07-29 08:40] LABS: HEMATOCRIT 46 % (40-54); HEMOGLOBIN 15.6 g/dL (13.3-17.7); MEAN CORPUSCULAR HEMOGLOBIN 34 pg (25-34); MEAN CORPUSCULAR HGB CONC 34 g/dL (32-36); MEAN CORPUSCULAR VOLUME 99 fL (80-99); MEAN PLATELET VOLUME 10.2 fL (9.0-12.2); PLATELET COUNT 199 10^3/uL (130-400); WHITE BLOOD COUNT 6.1 10^3/uL (4.3-11.0)
[2021-07-29] MEDS ORDERED: CRAN450T9 PO (08:42)
[2021-07-29] MEDS ORDERED: ASPI-999 PO (08:42)
[2021-07-29] MEDS ORDERED: LYSI500T37 PO (08:42)
[2021-07-29] MEDS ORDERED: LEVO5TAB28 PO (08:42)
[2021-07-29] MEDS ORDERED: [UNRECOGNIZED DRUG - CODE] PO (08:42)
[2021-07-29] MEDS ORDERED: GLUC15006 PO (08:42)
[2021-07-29] MEDS ORDERED: FISH1CAP15 PO (08:42)
[2021-07-29] MEDS ORDERED: CHOL500061 PO (08:42)
[2021-07-29] MEDS ORDERED: LISI5TAB20 PO (08:42)
[2021-07-29] MEDS ORDERED: MULT-1061 PO (08:42)
[2021-07-29] MEDS ORDERED: POLY17PO6 PO (08:42)
[2021-07-29] MEDS ORDERED: ASCO100024 PO (08:42)
[2021-07-29 08:45] LABS: INR 0.9 (0.8-1.4); PROTHROMBIN TIME PATIENT 12.5 SEC (12.2-14.7)
[2021-07-29 08:49] LABS: ALBUMIN 3.8 GM/DL (3.2-4.5); BILIRUBIN,TOTAL 0.5 MG/DL (0.1-1.0); CALCIUM 9.5 MG/DL (8.5-10.1); CREATININE SERUM 1.01 MG/DL (0.60-1.30); POTASSIUM 4.1 MMOL/L (3.6-5.0); TOTAL PROTEIN 7.2 GM/DL (6.4-8.2)
--- NOTE | 2021-07-29 09:10 | Conscious Sedation/ASA ---
Conscious Sedation Pre-Proced Time 09:10 ASA Score 3 For ASA 3 and 4: Consider anesthesia and medical clearance. Also, for patients with a history of failed moderate sedation consider anesthesia. Airway Lungs Heart ASA score ASA 1: a normal healthy patient ASA 2: a patient with a mild systemic disease (mid diabetes, controlled hypertension, obesity x ASA 3: a patient with a severe systemic disease that limits activity (angina, COPD, prior Myocardial infarction) ASA 4: a patient with an incapacitating disease that is a constant threat to life (CHF, renal failure) ASA 5: a moribund patient not expected to survive 24 hrs. (ruptured aneurysm) ASA 6: a declared brain- patient whose organs are being harvested. For emergent operations, add the letter E after the classification Mallampati Classification Grade 3 Sedation Plan Analgesia, Amnesia, Plan communicated to team members, Discussed options with patient/fam, Discussed risks with patient/fam The patient is an appropriate candidate to undergo the planned procedure, sedation, and anesthesia. The patient immediately re-assessed prior to indication. KATE FARIAS MD Jul 29, 2021 09:10
[2021-07-29] MEDS ORDERED: PATIENT MAY USE OWN MEDS, ALL PO SCH (10:45)
--- NOTE | 2021-07-29 10:45 | Discharge Inst-Post CATH ---
Discharge Inst-CATH/EP Problems Reviewed?: Yes Post Cardiac Cath/EP D/C Inst Follow Up/Plan Appointment with Dr. Phillips's office in 2 to 4 weeks <b>CARDIAC CATH/EP PROCEDURE DISCHARGE INSTRUCTIONS</b> ACTIVITY * Go Home directly and rest. * Limit activity of the leg (or wrist if it was used) for 7 days including aer obics, swimming, jogging, bicycling, etc. * Restrict stair-climbing for 7 days if possible, if not, climb up with your non-cath leg, then bring together on the same step. * Avoid lifting, pushing, pulling or excessive movement of the affected extremi ty for 7 days. * Customary sexual activity may be resumed after 2 days-use caution not to use a position that strains or causes pain to the affected extremity. * No driving for 24 hours. * NO SMOKING. * Avoid straining for bowel movements for 7 days. * Gentle walking on level ground is allowed. * Returning to work will depend on the type of procedure and the results. Your doctor will discuss this with you. CALL YOUR DOCTOR FOR ANY OF THE FOLLOWING: *If bleeding from the puncture site occurs- Apply gentle pressure to site with clean cloth and call your doctor or EMS. * If a knot or lump forms under the skin, increases in size, or causes pain. * If bruising appears to be worsening or moving further down your leg instead of disappearing. * Temperature above 101 F. CARE OF YOUR GROIN INCISION; * Bruising or purple discoloration of the skin near the puncture site is common. * You may shower only, no bathtub bathing for 5 days. Be careful to avoid slipping as your leg may feel stiff. * If a closure device was used on your femoral artery, please see the attached guide regarding care of the device and your leg. * Leave dressing on FOR 24 hours. CARE OF YOUR WRIST INCISION; * Bruising or purple discoloration of the skin near the puncture site is common. * You may shower. * DO NOT submerge wrist. * Leave dressing on FOR 24 hours. KATE PHILLIPS MD Jul 29, 2021 10:45
--- NOTE | 2021-07-29 10:50 | Cardiac Procedure Note ---
Cardiology Procedures Date of Procedure 07/29/21 Procedure note Venogram of the right subclavian artery Venogram of the right internal jugular artery Central line placement in the right femoral vein Repositioning of the tip of the venous port Procedure note after explaining the procedure to the patient all pros and cons were explained all questions were answered Patient was placed on the cardiac catheterization laboratory, local anesthesia applied, 5 Maltese sheath was placed in the right femoral artery. I advanced a IM curved catheter, had difficulty advancing the catheter, I did angiogram to the subclavian artery and to the superior vena cava. I was unable to visualize the internal jugular subsequently we did an injection through the port and I was able to visualize the internal jugular artery. Repositioned the catheter advanced IM catheter up to the internal jugular then exchanged over a wire to multipurpose and I used a snare catheter was able to capture the tip of the port and then reposition it down to the superior vena cava. Sheath was removed with manual pressure. Conclusion Successful repositioning of a tip of the venous port from the internal jugular artery to the superior vena cava Final diagnosis Colorectal cancer Hypertension KATE FARIAS MD Jul 29, 2021 10:50
== END 2021-07-29 13:20 | disposition home or self-care (01) ==
LOC: CATH 07:56 → SDC 11:07 → CATH 13:20
PROVIDERS: ATTEND Internal Medicine Cardiovascular Disease
DX: C19 Malignant neoplasm of rectosigmoid junction (principal); I10 Essential (primary) hypertension; E11.9 Type 2 diabetes mellitus without complications; I49.3 Ventricular premature depolarization; I65.29 Occlusion and stenosis of unspecified carotid artery; I25.10 Atherosclerotic heart disease of native coronary artery without angina pectoris; E78.2 Mixed hyperlipidemia; Z79.84 Long term (current) use of oral hypoglycemic drugs; Z79.899 Other long term (current) drug therapy; Z87.891 Personal history of nicotine dependence
CPT/HCPCS: 37197; 71045; 80053; 85027; 85610; 85730; 87081; C1769 ×3; C1773; C1894; 36415

== ENCOUNTER → 2021-08-05 | Outpatient (RCR) | payer MEDICARE ==
[2021-07-08 09:03] LABS: BASOPHILS % (AUTO) 1 % (0-10); EOSINOPHILS # (AUTO) 0.1 10^3/uL (0.0-0.3); EOSINOPHILS % (AUTO) 2 % (0-10); HEMATOCRIT 45 % (40-54); HEMOGLOBIN 15.3 g/dL (13.3-17.7); LYMPHOCYTES # (AUTO) 1.5 10^3/uL (1.0-4.0); LYMPHOCYTES % (AUTO) 24 % (12-44); MEAN CORPUSCULAR HEMOGLOBIN 33 pg (25-34); MEAN CORPUSCULAR HGB CONC 34 g/dL (32-36); MEAN CORPUSCULAR VOLUME 98 fL (80-99); MONOCYTES % (AUTO) 17 % (0-12); NEUTROPHILS # (AUTO) 3.6 10^3/uL (1.8-7.8); NEUTROPHILS % (AUTO) 57 % (42-75); PLATELET COUNT 184 10^3/uL (130-400); WHITE BLOOD COUNT 6.3 10^3/uL (4.3-11.0)
[2021-07-08 09:30] LABS: ALBUMIN 3.8 GM/DL (3.2-4.5); BILIRUBIN,TOTAL 0.7 MG/DL (0.1-1.0); CALCIUM 9.7 MG/DL (8.5-10.1); MAGNESIUM 1.7 MG/DL (1.6-2.4); POTASSIUM 4.1 MMOL/L (3.6-5.0); TOTAL PROTEIN 6.9 GM/DL (6.4-8.2)
[2021-07-22 10:16] LABS: BASOPHILS % (AUTO) 1 % (0-10); EOSINOPHILS # (AUTO) 0.2 10^3/uL (0.0-0.3); EOSINOPHILS % (AUTO) 3 % (0-10); HEMATOCRIT 45 % (40-54); HEMOGLOBIN 15.7 g/dL (13.3-17.7); LYMPHOCYTES # (AUTO) 1.7 10^3/uL (1.0-4.0); LYMPHOCYTES % (AUTO) 24 % (12-44); MEAN CORPUSCULAR HEMOGLOBIN 34 pg (25-34); MEAN CORPUSCULAR HGB CONC 35 g/dL (32-36); MEAN CORPUSCULAR VOLUME 99 fL (80-99); MEAN PLATELET VOLUME 10.2 fL (9.0-12.2); MONOCYTES % (AUTO) 13 % (0-12); NEUTROPHILS # (AUTO) 4.3 10^3/uL (1.8-7.8); NEUTROPHILS % (AUTO) 59 % (42-75); PLATELET COUNT 162 10^3/uL (130-400); WHITE BLOOD COUNT 7.2 10^3/uL (4.3-11.0)
[2021-07-22 10:35] LABS: ALBUMIN 3.6 GM/DL (3.2-4.5); BILIRUBIN,TOTAL 0.7 MG/DL (0.1-1.0); CALCIUM 9.6 MG/DL (8.5-10.1); CREATININE SERUM 1.02 MG/DL (0.60-1.30); MAGNESIUM 1.7 MG/DL (1.6-2.4); POTASSIUM 4.2 MMOL/L (3.6-5.0); TOTAL PROTEIN 6.7 GM/DL (6.4-8.2)
[~2021-08-05] VITALS: Ht 176.5 cm; Wt 94.8 kg
[~2021-08-05] MED LIST changes: +ALTEPLASE 2 MG (CATHFLO) CANCER CENTER IV ONE; +ASCO100024 PO; +ASPI-999 PO; +CHOL500061 PO; +CRAN450T9 PO; +D5W 500 ML IV (CANCER CTR) 500 ML IV SCH; +FAMOTIDINE 20MG/2ML IV (CANCER CTR) IV SCH; +FISH1CAP15 PO; +FOSAPREPITANT (CANCER CENTER) 150 MG in NS (IVPB) CANCER CENTER ONLY 150 ML IV SCH; +GLUC15006 PO; +LEUCOVORIN CALCIUM 800 MG in D5W 250 ML IVPB (CANCER CTR) 250 ML IV SCH; +LEVO5TAB28 PO; +LISI5TAB20 PO; +LYSI500T37 PO; +MULT-1061 PO; +NS (IVPB) CANCER CENTER 250 ML ONE; +NS IV 1000 ML (CANCER CTR) IV SCH; +OXALIPLATIN 100 MG, OXALIPLATIN (GENERIC) 20 MG in D5W 250 ML IVPB (CANCER CTR) 250 ML IV SCH; +OXALIPLATIN 100 MG, OXALIPLATIN (GENERIC) 50 MG in D5W 250 ML IVPB (CANCER CTR) 250 ML IV SCH; +POLY17PO6 PO; +[UNRECOGNIZED DRUG - CODE] PO; +diphenhydrAMINE 25 MG TAB (BENADRYL) CANCER CENTER PO SCH; +diphenhydrAMINE 50 MG/ML INJ (CANCER CENTER) ONE; +methylPREDNISolone 125 MG/2 ML (SOLU-MEDROL) CANCER CTR ONE
== END | disposition home or self-care (01) ==
LOC: ONC 07-08 08:51
PROVIDERS: ATTEND Internal Medicine Hematology & Oncology
DX: Z51.11 Encounter for antineoplastic chemotherapy (principal); Z45.2 Encounter for adjustment and management of vascular access device; C18.9 Malignant neoplasm of colon, unspecified; C78.6 Secondary malignant neoplasm of retroperitoneum and peritoneum; I10 Essential (primary) hypertension; E11.9 Type 2 diabetes mellitus without complications; I25.10 Atherosclerotic heart disease of native coronary artery without angina pectoris; E78.2 Mixed hyperlipidemia; E66.9 Obesity, unspecified; Z82.49 Family history of ischemic heart disease and other diseases of the circulatory system
CPT/HCPCS: 80053; 83735; 85025; 96367; 96368; 96375; 96413; 96521; G0463; 36593; 82378; 99213

== ENCOUNTER 2021-08-29 11:35 | Outpatient (RCR) | payer MEDICARE ==
[2021-08-27 10:53] LABS: BASOPHILS % (AUTO) 0 % (0-10); EOSINOPHILS # (AUTO) 0.2 10^3/uL (0.0-0.3); EOSINOPHILS % (AUTO) 3 % (0-10); HEMATOCRIT 45 % (40-54); HEMOGLOBIN 15.3 g/dL (13.3-17.7); LYMPHOCYTES # (AUTO) 1.8 10^3/uL (1.0-4.0); LYMPHOCYTES % (AUTO) 28 % (12-44); MEAN CORPUSCULAR HEMOGLOBIN 33 pg (25-34); MEAN CORPUSCULAR HGB CONC 34 g/dL (32-36); MEAN CORPUSCULAR VOLUME 98 fL (80-99); MEAN PLATELET VOLUME 9.8 fL (9.0-12.2); MONOCYTES # (AUTO) 0.8 10^3/uL (0.0-1.0); MONOCYTES % (AUTO) 13 % (0-12); NEUTROPHILS # (AUTO) 3.7 10^3/uL (1.8-7.8); NEUTROPHILS % (AUTO) 57 % (42-75); PLATELET COUNT 224 10^3/uL (130-400); WHITE BLOOD COUNT 6.6 10^3/uL (4.3-11.0)
[2021-08-27 11:22] LABS: ALBUMIN 3.8 GM/DL (3.2-4.5); BILIRUBIN,TOTAL 0.6 MG/DL (0.1-1.0); CALCIUM 9.3 MG/DL (8.5-10.1); CREATININE SERUM 0.93 MG/DL (0.60-1.30); POTASSIUM 4.1 MMOL/L (3.6-5.0); TOTAL PROTEIN 6.8 GM/DL (6.4-8.2)
[~2021-08-29 11:35] MED LIST changes: -ALTEPLASE 2 MG (CATHFLO) CANCER CENTER IV ONE; +ATROPINE INJ 0.4 MG/ML SDV (CANCER CENTER) INJ SCH; -D5W 500 ML IV (CANCER CTR) 500 ML IV SCH; +D5W IV SCH; +IRINOTECAN HCL IV SCH; -LEUCOVORIN CALCIUM 800 MG in D5W 250 ML IVPB (CANCER CTR) 250 ML IV SCH; -NS (IVPB) CANCER CENTER 250 ML ONE; -OXALIPLATIN 100 MG, OXALIPLATIN (GENERIC) 20 MG in D5W 250 ML IVPB (CANCER CTR) 250 ML IV SCH; -OXALIPLATIN 100 MG, OXALIPLATIN (GENERIC) 50 MG in D5W 250 ML IVPB (CANCER CTR) 250 ML IV SCH; -diphenhydrAMINE 25 MG TAB (BENADRYL) CANCER CENTER PO SCH; +diphenhydrAMINE 50 MG/ML INJ (CANCER CENTER) IV PRN; -diphenhydrAMINE 50 MG/ML INJ (CANCER CENTER) ONE; -methylPREDNISolone 125 MG/2 ML (SOLU-MEDROL) CANCER CTR ONE
== END 2021-09-02 | disposition home or self-care (01) ==
LOC: ONC 11:35
PROVIDERS: ATTEND Internal Medicine Hematology & Oncology
DX: Z51.11 Encounter for antineoplastic chemotherapy (principal); C18.9 Malignant neoplasm of colon, unspecified; C78.6 Secondary malignant neoplasm of retroperitoneum and peritoneum; I10 Essential (primary) hypertension; E11.9 Type 2 diabetes mellitus without complications; I25.10 Atherosclerotic heart disease of native coronary artery without angina pectoris; E78.2 Mixed hyperlipidemia; E66.9 Obesity, unspecified; Z82.49 Family history of ischemic heart disease and other diseases of the circulatory system
CPT/HCPCS: 36591; 80053; 85025; 96375; 96413; 96415; 96416; 99213

== ENCOUNTER → 2021-09-18 | Outpatient (CLI) | payer MEDICARE ==
[~2021-09-18] MED LIST changes: -ATROPINE INJ 0.4 MG/ML SDV (CANCER CENTER) INJ SCH; +CATHETER FLUSH 10 ML SYR IVP PRN; -D5W IV SCH; -FAMOTIDINE 20MG/2ML IV (CANCER CTR) IV SCH; -FOSAPREPITANT (CANCER CENTER) 150 MG in NS (IVPB) CANCER CENTER ONLY 150 ML IV SCH; -IRINOTECAN HCL IV SCH; -NS IV 1000 ML (CANCER CTR) IV SCH; +REGADENOSON 0.4 MG/5 ML SYR (LEXISCAN) IV ONE; -diphenhydrAMINE 50 MG/ML INJ (CANCER CENTER) IV PRN
[2021-09-18 12:27] VITALS: BP 143/103
--- NOTE | 2021-09-23 08:49 | Cardiology Stress Test Report ---
Stress Test Report Date of Procedure/Referring: Date of Procedure: Sep 23, 2021 Morelia Fraire Admitting Physician Fransisco Cristobal MD Indications: CAD Baseline Heart Rate: 76 Baseline Blood Pressure: Blood Pressure Systolic: 143 Blood Pressure Diastolic: 103 Baseline Vitals Vital Signs Date Time Temp Pulse Resp B/P (MAP) Pulse Ox O2 Delivery O2 Flow Rate FiO2 09/18/21 12:27 76 143/103 (116) Baseline EKG: Baseline EKG: NSR, frequent APCs Summary After explaining the procedure to the patient, he signed a consent and then brought to the stress nuclear laboratory. Patient received 0.4 mg Lexiscan for stress test, ECG, heart rate and blood pressure were monitored continuously. Resting and stress dose of radio tracer were injected, imaging was acquired and reviewed in short axis, horizontal long axis and vertical long axis views. TID: 1.02 SSS: 20 SDS: 9 EF: 51 1. Patient tolerated Lexiscan well 2. Baseline sinus rhythm with frequent atrial premature contractions 3. Diaphragmatic attenuation with decreased uptake involving the whole inferior wall and inferolateral wall with reversible ischemia involving the inferior wall and inferolateral wall 4. Normal left ventricular size, EF 51% KATE FARIAS MD Sep 23, 2021 08:49
== END ==
LOC: CARD 11:00
PROVIDERS: ATTEND Physician Assistant
DX: I51.7 Cardiomegaly (principal); I35.8 Other nonrheumatic aortic valve disorders; I25.10 Atherosclerotic heart disease of native coronary artery without angina pectoris; I10 Essential (primary) hypertension
CPT/HCPCS: 78452; 93017; 93306; A9502

== ENCOUNTER 2021-09-27 11:12 | Outpatient (RCR) | payer MEDICARE ==
[2021-09-09 11:36] LABS: BASOPHILS % (AUTO) 0 % (0-10); EOSINOPHILS # (AUTO) 0.2 10^3/uL (0.0-0.3); EOSINOPHILS % (AUTO) 2 % (0-10); HEMATOCRIT 45 % (40-54); HEMOGLOBIN 15.4 g/dL (13.3-17.7); LYMPHOCYTES # (AUTO) 2.1 10^3/uL (1.0-4.0); LYMPHOCYTES % (AUTO) 33 % (12-44); MEAN CORPUSCULAR HEMOGLOBIN 33 pg (25-34); MEAN CORPUSCULAR HGB CONC 34 g/dL (32-36); MEAN CORPUSCULAR VOLUME 97 fL (80-99); MEAN PLATELET VOLUME 9.3 fL (9.0-12.2); MONOCYTES # (AUTO) 0.8 10^3/uL (0.0-1.0); MONOCYTES % (AUTO) 12 % (0-12); NEUTROPHILS # (AUTO) 3.3 10^3/uL (1.8-7.8); NEUTROPHILS % (AUTO) 51 % (42-75); PLATELET COUNT 242 10^3/uL (130-400); WHITE BLOOD COUNT 6.3 10^3/uL (4.3-11.0)
[2021-09-09 12:03] LABS: ALBUMIN 3.9 GM/DL (3.2-4.5); BILIRUBIN,TOTAL 0.6 MG/DL (0.1-1.0); CREATININE SERUM 0.94 MG/DL (0.60-1.30); POTASSIUM 4.2 MMOL/L (3.6-5.0); TOTAL PROTEIN 6.8 GM/DL (6.4-8.2)
[2021-09-25 10:25] LABS: BASOPHILS % (AUTO) 0 % (0-10); EOSINOPHILS # (AUTO) 0.2 10^3/uL (0.0-0.3); EOSINOPHILS % (AUTO) 3 % (0-10); HEMATOCRIT 42 % (40-54); HEMOGLOBIN 14.3 g/dL (13.3-17.7); LYMPHOCYTES # (AUTO) 1.4 10^3/uL (1.0-4.0); LYMPHOCYTES % (AUTO) 26 % (12-44); MEAN CORPUSCULAR HEMOGLOBIN 33 pg (25-34); MEAN CORPUSCULAR HGB CONC 34 g/dL (32-36); MEAN CORPUSCULAR VOLUME 97 fL (80-99); MEAN PLATELET VOLUME 9.5 fL (9.0-12.2); MONOCYTES # (AUTO) 0.8 10^3/uL (0.0-1.0); MONOCYTES % (AUTO) 16 % (0-12); NEUTROPHILS % (AUTO) 55 % (42-75); PLATELET COUNT 195 10^3/uL (130-400); WHITE BLOOD COUNT 5.4 10^3/uL (4.3-11.0)
[2021-09-25 10:45] LABS: ALBUMIN 3.8 GM/DL (3.2-4.5); BILIRUBIN,TOTAL 0.7 MG/DL (0.1-1.0); CALCIUM 9.1 MG/DL (8.5-10.1); CREATININE SERUM 1.03 MG/DL (0.60-1.30); MAGNESIUM 1.6 MG/DL (1.6-2.4); POTASSIUM 4.2 MMOL/L (3.6-5.0); TOTAL PROTEIN 6.4 GM/DL (6.4-8.2)
[~2021-09-27] VITALS: Ht 177.8 cm; Wt 103.0 kg
[~2021-09-27 11:12] MED LIST changes: +ATROPINE INJ 0.4 MG/ML SDV (CANCER CENTER) INJ SCH; -CATHETER FLUSH 10 ML SYR IVP PRN; +D5W IV SCH; +FAMOTIDINE 20MG/2ML IV (CANCER CTR) IV SCH; +FOSAPREPITANT (CANCER CENTER) 150 MG in NS (IVPB) CANCER CENTER ONLY 150 ML IV SCH; +IRINOTECAN HCL IV SCH; +NS IV 1000 ML (CANCER CTR) IV SCH; -REGADENOSON 0.4 MG/5 ML SYR (LEXISCAN) IV ONE; +diphenhydrAMINE 25 MG TAB (BENADRYL) CANCER CENTER PO SCH; +diphenhydrAMINE 50 MG/ML INJ (CANCER CENTER) IV PRN
== END 2021-10-03 | disposition home or self-care (01) ==
LOC: ONC 11:12
PROVIDERS: ATTEND Internal Medicine Hematology & Oncology
DX: Z51.11 Encounter for antineoplastic chemotherapy (principal); C18.9 Malignant neoplasm of colon, unspecified; C78.6 Secondary malignant neoplasm of retroperitoneum and peritoneum; I10 Essential (primary) hypertension; G62.9 Polyneuropathy, unspecified; E11.9 Type 2 diabetes mellitus without complications; I25.10 Atherosclerotic heart disease of native coronary artery without angina pectoris; E78.2 Mixed hyperlipidemia; E66.9 Obesity, unspecified; Z82.49 Family history of ischemic heart disease and other diseases of the circulatory system
CPT/HCPCS: 36591; 80053; 82378; 83735; 85025; 96360; 96367; 96375; 96411; 96413; 99213

== ENCOUNTER 2021-10-30 10:49 | Outpatient (RCR) | payer MEDICARE ==
[2021-10-14 09:28] LABS: BASOPHILS % (AUTO) 0 % (0-10); EOSINOPHILS # (AUTO) 0.4 10^3/uL (0.0-0.3); EOSINOPHILS % (AUTO) 8 % (0-10); HEMATOCRIT 36 % (40-54); HEMOGLOBIN 12.3 g/dL (13.3-17.7); LYMPHOCYTES # (AUTO) 1.4 10^3/uL (1.0-4.0); LYMPHOCYTES % (AUTO) 26 % (12-44); MEAN CORPUSCULAR HEMOGLOBIN 33 pg (25-34); MEAN CORPUSCULAR HGB CONC 34 g/dL (32-36); MEAN CORPUSCULAR VOLUME 98 fL (80-99); MEAN PLATELET VOLUME 10.1 fL (9.0-12.2); MONOCYTES # (AUTO) 0.6 10^3/uL (0.0-1.0); MONOCYTES % (AUTO) 13 % (0-12); NEUTROPHILS # (AUTO) 2.7 10^3/uL (1.8-7.8); NEUTROPHILS % (AUTO) 52 % (42-75); PLATELET COUNT 178 10^3/uL (130-400); WHITE BLOOD COUNT 5.1 10^3/uL (4.3-11.0)
[2021-10-14 09:49] LABS: ALBUMIN 3.3 GM/DL (3.2-4.5); BILIRUBIN,TOTAL 0.5 MG/DL (0.1-1.0); CALCIUM 7.7 MG/DL (8.5-10.1); CREATININE SERUM 0.77 MG/DL (0.60-1.30); POTASSIUM 3.7 MMOL/L (3.6-5.0); TOTAL PROTEIN 5.3 GM/DL (6.4-8.2)
[2021-10-28 10:02] LABS: BASOPHILS % (AUTO) 1 % (0-10); EOSINOPHILS # (AUTO) 0.3 10^3/uL (0.0-0.3); EOSINOPHILS % (AUTO) 4 % (0-10); HEMATOCRIT 40 % (40-54); HEMOGLOBIN 13.7 g/dL (13.3-17.7); LYMPHOCYTES # (AUTO) 1.7 10^3/uL (1.0-4.0); LYMPHOCYTES % (AUTO) 25 % (12-44); MEAN CORPUSCULAR HEMOGLOBIN 33 pg (25-34); MEAN CORPUSCULAR HGB CONC 34 g/dL (32-36); MEAN CORPUSCULAR VOLUME 98 fL (80-99); MEAN PLATELET VOLUME 9.5 fL (9.0-12.2); MONOCYTES # (AUTO) 0.8 10^3/uL (0.0-1.0); MONOCYTES % (AUTO) 11 % (0-12); NEUTROPHILS # (AUTO) 3.9 10^3/uL (1.8-7.8); NEUTROPHILS % (AUTO) 58 % (42-75); PLATELET COUNT 214 10^3/uL (130-400); WHITE BLOOD COUNT 6.6 10^3/uL (4.3-11.0)
[2021-10-28 10:29] LABS: ALBUMIN 3.9 GM/DL (3.2-4.5); BILIRUBIN,TOTAL 0.6 MG/DL (0.1-1.0); CREATININE SERUM 0.91 MG/DL (0.60-1.30); POTASSIUM 4.2 MMOL/L (3.6-5.0); TOTAL PROTEIN 6.1 GM/DL (6.4-8.2)
[~2021-10-30] VITALS: Ht 177.8 cm; Wt 103.0 kg
[~2021-10-30 10:49] MED LIST changes: -ATROPINE INJ 0.4 MG/ML SDV (CANCER CENTER) INJ SCH; +ATROPINE INJ 0.4 MG/ML SDV IV SCH; -FAMOTIDINE 20MG/2ML IV (CANCER CTR) IV SCH; +FAMOTIDINE 20MG/2ML IV (PEPCID) IV ONE; +FAMOTIDINE 20MG/2ML IV (PEPCID) ONE; +HEParin (CENTRAL IV FLUSH) 500 UNIT/5 ML SYR IV PRN; +PALONOSETRON HCL 0.25 MG, dexAMETHasone INJECTION 10 MG in NS (IVPB) 50 ML IV SCH; -diphenhydrAMINE 25 MG TAB (BENADRYL) CANCER CENTER PO SCH; +diphenhydrAMINE 25 MG TAB (BENADRYL) PO SCH; -diphenhydrAMINE 50 MG/ML INJ (CANCER CENTER) IV PRN; +fluorouraciL 4,800 MG in NS (IVPB) 51.2 ML IV SCH
== END 2021-11-02 | disposition home or self-care (01) ==
LOC: ONC 10:49
PROVIDERS: ATTEND Internal Medicine Hematology & Oncology
DX: Z51.11 Encounter for antineoplastic chemotherapy (principal); Z45.2 Encounter for adjustment and management of vascular access device; C18.9 Malignant neoplasm of colon, unspecified; C78.6 Secondary malignant neoplasm of retroperitoneum and peritoneum; G62.9 Polyneuropathy, unspecified; I10 Essential (primary) hypertension; I25.10 Atherosclerotic heart disease of native coronary artery without angina pectoris; E11.9 Type 2 diabetes mellitus without complications; E78.5 Hyperlipidemia, unspecified; E66.9 Obesity, unspecified
CPT/HCPCS: 80053; 82378; 85025; 96360; 96367; 96375; 96411; 96413; 96521; G0463; 36591; 99213

== ENCOUNTER 2021-11-06 07:02 | Day surgery (SDC) | payer MEDICARE ==
[~2021-11-06] VITALS: Ht 176.5 cm; Wt 102.6 kg
[2021-11-06] VITALS (12 sets, daily range): BP systolic 110–147; BP diastolic 59–89
[~2021-11-06 07:02] MED LIST changes: -ATROPINE INJ 0.4 MG/ML SDV IV SCH; -D5W IV SCH; -FAMOTIDINE 20MG/2ML IV (PEPCID) IV ONE; -FAMOTIDINE 20MG/2ML IV (PEPCID) ONE; -FOSAPREPITANT (CANCER CENTER) 150 MG in NS (IVPB) CANCER CENTER ONLY 150 ML IV SCH; -HEParin (CENTRAL IV FLUSH) 500 UNIT/5 ML SYR IV PRN; -IRINOTECAN HCL IV SCH; -NS IV 1000 ML (CANCER CTR) IV SCH; -PALONOSETRON HCL 0.25 MG, dexAMETHasone INJECTION 10 MG in NS (IVPB) 50 ML IV SCH; -diphenhydrAMINE 25 MG TAB (BENADRYL) PO SCH; -fluorouraciL 4,800 MG in NS (IVPB) 51.2 ML IV SCH
[2021-11-06] MEDS ORDERED: NS IV 1000 ML 1,000 ML IV SCH ×2 (07:15→09:45)
[2021-11-06] MEDS ORDERED: NS IV 1000 ML 1,000 ML ONE (07:18)
[2021-11-06] MEDS ORDERED: LIDOCAINE 1% INJ 20 ML VIAL ONE (07:18)
[2021-11-06] MEDS ORDERED: HEParin (CATH LAB) 2,000 ML IV ONE (07:19)
--- NOTE | 2021-11-06 07:46 | Diagnostic Imaging Report ---
EXAMINATION: Chest 1 view HISTORY: Abnormal stress test. Hypertension. Preop for heart catheterization. COMPARISON: 07/29/2021. 05/23/2021. FINDINGS: A right port is visualized with the tip likely within the hemiazygos vein, with the tip crossing the midline on this image. The lung volumes are normal. No focal consolidation is seen. No large pleural effusion or pneumothorax is seen. The cardiomediastinal silhouette is normal in size and contour. No acute osseous abnormality is seen. IMPRESSION: 1. No acute pleuroparenchymal process. 2. Right port with the tip likely within the hemiazygos vein. There is a prominent hemiazygos vein noted on the prior CT chest from 2020. If indicated consider repositioning/replacement. Dictated by: Dictated on workstation # [id number]
[2021-11-06 07:48] LABS: HEMATOCRIT 41 % (40-54); HEMOGLOBIN 13.9 g/dL (13.3-17.7); MEAN CORPUSCULAR HEMOGLOBIN 33 pg (25-34); MEAN CORPUSCULAR HGB CONC 34 g/dL (32-36); MEAN CORPUSCULAR VOLUME 97 fL (80-99); MEAN PLATELET VOLUME 9.4 fL (9.0-12.2); PLATELET COUNT 254 10^3/uL (130-400); WHITE BLOOD COUNT 7.2 10^3/uL (4.3-11.0)
[2021-11-06 07:50] LABS: BILIRUBIN,URINE NEGATIVE (NEGATIVE); CLARITY,URINE CLEAR; COLOR,URINE YELLOW; GLUCOSE, URINE (UA) 2+ (NEGATIVE); KETONES,URINE NEGATIVE (NEGATIVE); LEUKOCYTE ESTERASE ,URINE 1+ (NEGATIVE); NITRITE,URINE POSITIVE (NEGATIVE); PROTEIN,URINE NEGATIVE (NEGATIVE)
[2021-11-06 07:56] LABS: ALBUMIN 4.1 GM/DL (3.2-4.5)
[2021-11-06 07:57] LABS: CALCIUM 9.3 MG/DL (8.5-10.1)
[2021-11-06 07:59] LABS: TOTAL PROTEIN 6.5 GM/DL (6.4-8.2)
[2021-11-06 08:00] LABS: PROTHROMBIN TIME PATIENT 13.1 SEC (12.2-14.7)
[2021-11-06 08:01] LABS: BILIRUBIN,TOTAL 0.4 MG/DL (0.1-1.0)
[2021-11-06 08:03] LABS: CREATININE SERUM 1.04 MG/DL (0.60-1.30); WBC,URINE 50-100 /HPF
[2021-11-06 08:04] LABS: BACTERIA,URINE LARGE /HPF; HYALINE CASTS, URINE RARE /LPF; SQUAMOUS EPITHELIAL CELL,UR RARE /HPF
[2021-11-06] MEDS ORDERED: PANT40TA52 PO (08:12)
[2021-11-06] MEDS ORDERED: GUAI-365 PO (08:14)
[2021-11-06] MEDS ORDERED: VERAPAMIL 5 MG/2 ML (CALAN) VIAL IV ONE (08:48)
[2021-11-06] MEDS ORDERED: NITRO DRIP 25000 MCG/D5W 250 ML IV ONE (08:49)
[2021-11-06] MEDS ORDERED: HEParin 1000 UNIT/ML (10ML VIAL) FOR BOLUS ONE (08:49)
[2021-11-06] MEDS ORDERED: fentaNYL INJ 100 MCG/2 ML AMP ONE (08:49)
[2021-11-06] MEDS ORDERED: MIDAZOLAM 5 MG/5 ML (VERSED) VIAL ONE (08:49)
[2021-11-06] MEDS ORDERED: ASPIRIN 325 MG (5 GR) TABLET ONE (09:30)
[2021-11-06] MEDS ORDERED: CLOPIDOGREL 300 MG (PLAVIX) TABLET PO ONE (09:30)
--- NOTE | 2021-11-06 09:38 | Conscious Sedation/ASA ---
Conscious Sedation Pre-Proced Time 09:37 ASA Score 3 For ASA 3 and 4: Consider anesthesia and medical clearance. Also, for patients with a history of failed moderate sedation consider anesthesia. Airway Lungs Heart ASA score ASA 1: a normal healthy patient ASA 2: a patient with a mild systemic disease (mid diabetes, controlled hypertension, obesity x ASA 3: a patient with a severe systemic disease that limits activity (angina, COPD, prior Myocardial infarction) ASA 4: a patient with an incapacitating disease that is a constant threat to life (CHF, renal failure) ASA 5: a moribund patient not expected to survive 24 hrs. (ruptured aneurysm) ASA 6: a declared brain- patient whose organs are being harvested. For emergent operations, add the letter E after the classification Mallampati Classification Grade 3 Sedation Plan Analgesia, Amnesia, Plan communicated to team members, Discussed options with patient/fam, Discussed risks with patient/fam The patient is an appropriate candidate to undergo the planned procedure, sedation, and anesthesia. The patient immediately re-assessed prior to indication. KATE FARIAS MD November 06, 2021 09:37
--- NOTE | 2021-11-06 09:45 | Cardiac Cath Report ---
Cardiac Cath Report Physician (s)/Meter Maintenance Person (s) Physician KATE FARIAS MD Pre-Procedure Diagnosis Pre-Procedure Diagnosis: Coronary artery disease Post-Procedure Note Procedure Start Date: November 06, 2021 Name of Procedure: Coronary angiogram Stenting to the circumflex artery Findings/Procedure Note PROCEDURE NOTE: 76-year-old gentleman with history of coronary artery disease, hypertension, hyperlipidemia, had an abnormal stress test, scheduled for cardiac catheterization possible PTCA. After explaining the procedure to the patient, all pros and cons were explained, all questions were answered. The patient signed the consent and then he was placed on the cardiac catheterization laboratory. Groin was prepped SL fashion local anesthesia was used. Sheath placed in the right radial artery, [place] catheter was advanced and engaged the left and right coronary system, angiogram was done. Patient had 99% stenosis in the obtuse marginal branch. Received total of 6000 units of heparin, EBU 3.5 guide was advanced and BMW wire was advanced to the distal obtuse marginal branch, predilatation with 3 x 15 balloon then I proceeded with deployment of skypoint stent 3 x 18 mm expanded under 14 jeison to 3.1 mm with excellent results. At the end of the procedure the sheath was removed. Vascular band was used FINDINGS: ANATOMY: Left Main has 40% ostial stenosis nonobstructive disease Left Anterior Descending has mild to moderate disease with myocardial bridging in the mid LAD nonobstructive disease Left Circumflex is moderate in size, nondominant artery, the first obtuse marginal branch is a large branch with 99% stenosis in a long segment successful balloon angioplasty then deployment of suellen point stent 3 x 18 mm expanded to 3.1 mm with excellent results Right Coronary Artery has 30 to 40% stenosis at the midportion nonobstructive disease CONCLUSION: 1. 99% stenosis in the long segment in the obtuse marginal branch successful balloon angioplasty then deployment of skypoint stent 3 x 18 mm expanded to 3.1 mm with excellent results. 2. 40% ostial left main coronary artery stenosis nonobstructive disease, myocardial bridging in the mid LAD with mild to moderate disease and mild to moderate disease in the mid right coronary artery nonobstructive disease. DISCUSSION AND RECOMMENDATION: Patient was loaded with aspirin and Plavix, I will add Lipitor to his medication list due to the LDL 102 Anesthesia Type: Conscious Sedation Estimated blood loss (mL): 20 ml Contrast Amount: 100 ml Total Radiation Dose: 1248 mGy Post-Procedure Diagnosis Post-operative diagnosis: Chest pain Coronary artery disease Hypertension Hyperlipidemia KATE FARIAS MD November 06, 2021 09:45
[2021-11-06] MEDS ORDERED: CLOP75TA28 PO (16:30)
[2021-11-06] MEDS ORDERED: ATOR10TA66 PO (16:30)
--- NOTE | 2021-11-06 16:31 | Discharge Inst-Post CATH ---
Discharge Inst-CATH/EP Problems Reviewed?: Yes Post Cardiac Cath/EP D/C Inst Follow Up/Plan Appointment with Dr. Phillips's office in 2 to 4 weeks <b>CARDIAC CATH/EP PROCEDURE DISCHARGE INSTRUCTIONS</b> ACTIVITY * Go Home directly and rest. * Limit activity of the leg (or wrist if it was used) for 7 days including aer obics, swimming, jogging, bicycling, etc. * Restrict stair-climbing for 7 days if possible, if not, climb up with your non-cath leg, then bring together on the same step. * Avoid lifting, pushing, pulling or excessive movement of the affected extremi ty for 7 days. * Customary sexual activity may be resumed after 2 days-use caution not to use a position that strains or causes pain to the affected extremity. * No driving for 24 hours. * NO SMOKING. * Avoid straining for bowel movements for 7 days. * Gentle walking on level ground is allowed. * Returning to work will depend on the type of procedure and the results. Your doctor will discuss this with you. CALL YOUR DOCTOR FOR ANY OF THE FOLLOWING: *If bleeding from the puncture site occurs- Apply gentle pressure to site with clean cloth and call your doctor or EMS. * If a knot or lump forms under the skin, increases in size, or causes pain. * If bruising appears to be worsening or moving further down your leg instead of disappearing. * Temperature above 101 F. CARE OF YOUR GROIN INCISION; * Bruising or purple discoloration of the skin near the puncture site is common. * You may shower only, no bathtub bathing for 5 days. Be careful to avoid slipping as your leg may feel stiff. * If a closure device was used on your femoral artery, please see the attached guide regarding care of the device and your leg. * Leave dressing on FOR 24 hours. CARE OF YOUR WRIST INCISION; * Bruising or purple discoloration of the skin near the puncture site is common. * You may shower. * DO NOT submerge wrist. * Leave dressing on FOR 24 hours. KATE PHILLIPS MD November 06, 2021 16:31
[2021-11-06] MEDS ORDERED: LORATADINE (CLARITIN) 10 MG TAB PO SCH (21:00)
[2021-11-06] MEDS ORDERED: AtorvaSTATin TABLET 10 MG TABLET PO SCH (21:00)
[2021-11-07] MEDS ORDERED: polyethylene glycoL POWDER 17 GM (MIRALAX) PACK PO SCH (09:00)
[2021-11-07] MEDS ORDERED: PANTOPRAZOLE 40 MG (PROTONIX) TAB PO SCH (09:00)
[2021-11-07] MEDS ORDERED: lisINopril 5 MG (PRINIVIL) TABLET PO SCH (09:00)
[2021-11-07] MEDS ORDERED: CLOPIDOGREL 75 MG (PLAVIX) TABLET PO SCH (09:00)
[2021-11-07] MEDS ORDERED: ASPIRIN E.C. 81 MG (ECOTRIN) TAB PO SCH (09:00)
== END 2021-11-06 16:50 | disposition home or self-care (01) ==
LOC: CATH 07:02 → CSD 09:55 → CATH 16:50
PROVIDERS: ATTEND Internal Medicine Cardiovascular Disease
DX: I25.10 Atherosclerotic heart disease of native coronary artery without angina pectoris (principal); I10 Essential (primary) hypertension; E78.5 Hyperlipidemia, unspecified; C18.9 Malignant neoplasm of colon, unspecified; C20 Malignant neoplasm of rectum; I49.1 Atrial premature depolarization; I49.3 Ventricular premature depolarization; I65.29 Occlusion and stenosis of unspecified carotid artery; E11.9 Type 2 diabetes mellitus without complications; Z79.84 Long term (current) use of oral hypoglycemic drugs; Z87.891 Personal history of nicotine dependence
CPT/HCPCS: 71045; 80053; 80061; 81000; 85027; 85610; 85730; 87077; 87081; 87088; 87186; 93005; 93454; C1725; C1769; C1874; C1887; C1894; C9600; 36415

== ENCOUNTER 2021-11-27 11:41 | Outpatient (RCR) | payer MEDICARE ==
[2021-11-04 08:48] LABS: BASOPHILS % (AUTO) 1 % (0-10); EOSINOPHILS # (AUTO) 0.2 10^3/uL (0.0-0.3); EOSINOPHILS % (AUTO) 3 % (0-10); HEMATOCRIT 40 % (40-54); HEMOGLOBIN 13.9 g/dL (13.3-17.7); LYMPHOCYTES # (AUTO) 1.9 10^3/uL (1.0-4.0); LYMPHOCYTES % (AUTO) 26 % (12-44); MEAN CORPUSCULAR HEMOGLOBIN 34 pg (25-34); MEAN CORPUSCULAR HGB CONC 35 g/dL (32-36); MEAN CORPUSCULAR VOLUME 97 fL (80-99); MEAN PLATELET VOLUME 9.7 fL (9.0-12.2); MONOCYTES % (AUTO) 13 % (0-12); NEUTROPHILS # (AUTO) 4.1 10^3/uL (1.8-7.8); NEUTROPHILS % (AUTO) 56 % (42-75); PLATELET COUNT 239 10^3/uL (130-400); WHITE BLOOD COUNT 7.3 10^3/uL (4.3-11.0)
[2021-11-04 09:55] LABS: CALCIUM 9.2 MG/DL (8.5-10.1); CREATININE SERUM 1.03 MG/DL (0.60-1.30); POTASSIUM 4.2 MMOL/L (3.6-5.0)
[2021-11-11 11:06] LABS: BASOPHILS % (AUTO) 1 % (0-10); EOSINOPHILS # (AUTO) 0.2 10^3/uL (0.0-0.3); EOSINOPHILS % (AUTO) 3 % (0-10); HEMATOCRIT 40 % (40-54); LYMPHOCYTES % (AUTO) 27 % (12-44); MEAN CORPUSCULAR HEMOGLOBIN 34 pg (25-34); MEAN CORPUSCULAR HGB CONC 35 g/dL (32-36); MEAN CORPUSCULAR VOLUME 98 fL (80-99); MEAN PLATELET VOLUME 9.9 fL (9.0-12.2); MONOCYTES % (AUTO) 14 % (0-12); NEUTROPHILS # (AUTO) 4.1 10^3/uL (1.8-7.8); NEUTROPHILS % (AUTO) 55 % (42-75); PLATELET COUNT 214 10^3/uL (130-400); WHITE BLOOD COUNT 7.4 10^3/uL (4.3-11.0)
[2021-11-11 11:25] LABS: ALBUMIN 3.2 GM/DL (3.2-4.5); POTASSIUM 3.4 MMOL/L (3.6-5.0)
[2021-11-11 11:26] LABS: CALCIUM 7.4 MG/DL (8.5-10.1)
[2021-11-11 11:27] LABS: TOTAL PROTEIN 5.1 GM/DL (6.4-8.2)
[2021-11-11 11:29] LABS: BILIRUBIN,TOTAL 0.4 MG/DL (0.1-1.0)
[2021-11-11 11:31] LABS: CREATININE SERUM 0.83 MG/DL (0.60-1.30)
[2021-11-25 10:41] LABS: BASOPHILS % (AUTO) 1 % (0-10); EOSINOPHILS # (AUTO) 0.2 10^3/uL (0.0-0.3); EOSINOPHILS % (AUTO) 3 % (0-10); HEMATOCRIT 39 % (40-54); HEMOGLOBIN 13.5 g/dL (13.3-17.7); LYMPHOCYTES # (AUTO) 1.6 10^3/uL (1.0-4.0); LYMPHOCYTES % (AUTO) 24 % (12-44); MEAN CORPUSCULAR HEMOGLOBIN 34 pg (25-34); MEAN CORPUSCULAR HGB CONC 34 g/dL (32-36); MEAN CORPUSCULAR VOLUME 99 fL (80-99); MEAN PLATELET VOLUME 9.4 fL (9.0-12.2); MONOCYTES # (AUTO) 0.8 10^3/uL (0.0-1.0); MONOCYTES % (AUTO) 12 % (0-12); NEUTROPHILS # (AUTO) 3.9 10^3/uL (1.8-7.8); NEUTROPHILS % (AUTO) 60 % (42-75); PLATELET COUNT 216 10^3/uL (130-400); WHITE BLOOD COUNT 6.6 10^3/uL (4.3-11.0)
[2021-11-25 11:07] LABS: ALBUMIN 3.9 GM/DL (3.2-4.5); BILIRUBIN,TOTAL 0.6 MG/DL (0.1-1.0); CREATININE SERUM 0.97 MG/DL (0.60-1.30); POTASSIUM 4.4 MMOL/L (3.6-5.0); TOTAL PROTEIN 6.4 GM/DL (6.4-8.2)
[~2021-11-27 11:41] MED LIST changes: +ATOR10TA66 PO; +ATROPINE INJ 0.4 MG/ML SDV IV SCH; +CLOP75TA28 PO; +D5W IV SCH; +FAMOTIDINE 20MG/2ML IV (PEPCID) IV PRN; +FLUOROURACIL IV SCH; +FOSAPREPITANT (CANCER CENTER) 150 MG in NS (IVPB) CANCER CENTER ONLY 150 ML IV SCH; +GUAI-365 PO; +HEParin (CENTRAL IV FLUSH) 500 UNIT/5 ML SYR IV PRN; +IRINOTECAN HCL IV SCH; +NS IV 1000 ML 1,000 ML ONE; +NS IV 500 ML 500 ML ONE; +NS IV SCH; +PALONOSETRON HCL 0.25 MG, dexAMETHasone INJECTION 10 MG in NS (IVPB) 50 ML IV SCH; +PANT40TA52 PO; +diphenhydrAMINE 25 MG TAB (BENADRYL) PO SCH; +fluorouraciL 4,800 MG in NS (IVPB) 51.2 ML IV SCH
== END 2021-12-03 | disposition home or self-care (01) ==
LOC: ONC 11:41
PROVIDERS: ATTEND Internal Medicine Hematology & Oncology
DX: Z51.11 Encounter for antineoplastic chemotherapy (principal); C19 Malignant neoplasm of rectosigmoid junction; C78.6 Secondary malignant neoplasm of retroperitoneum and peritoneum; G62.9 Polyneuropathy, unspecified; I10 Essential (primary) hypertension; I25.10 Atherosclerotic heart disease of native coronary artery without angina pectoris; E11.9 Type 2 diabetes mellitus without complications; E78.2 Mixed hyperlipidemia; E66.9 Obesity, unspecified
CPT/HCPCS: 36415; 36591; 80048; 80053; 82378; 85025; 96360; 96361; 96367; 96375; 96409; 96411; 96413; 99213

== ENCOUNTER 2021-12-23 08:12 | Outpatient (RCR) | payer MEDICARE ==
[2021-12-06 09:04] LABS: BASOPHILS % (AUTO) 0 % (0-10); EOSINOPHILS # (AUTO) 0.2 10^3/uL (0.0-0.3); EOSINOPHILS % (AUTO) 3 % (0-10); HEMATOCRIT 39 % (40-54); HEMOGLOBIN 13.6 g/dL (13.3-17.7); LYMPHOCYTES # (AUTO) 1.5 10^3/uL (1.0-4.0); LYMPHOCYTES % (AUTO) 28 % (12-44); MEAN CORPUSCULAR HEMOGLOBIN 34 pg (25-34); MEAN CORPUSCULAR HGB CONC 35 g/dL (32-36); MEAN CORPUSCULAR VOLUME 98 fL (80-99); MEAN PLATELET VOLUME 9.3 fL (9.0-12.2); MONOCYTES # (AUTO) 0.7 10^3/uL (0.0-1.0); MONOCYTES % (AUTO) 13 % (0-12); NEUTROPHILS # (AUTO) 2.9 10^3/uL (1.8-7.8); NEUTROPHILS % (AUTO) 55 % (42-75); PLATELET COUNT 220 10^3/uL (130-400); WHITE BLOOD COUNT 5.4 10^3/uL (4.3-11.0)
[2021-12-06 09:25] LABS: ALBUMIN 3.8 GM/DL (3.2-4.5); BILIRUBIN,TOTAL 0.7 MG/DL (0.1-1.0); CALCIUM 9.3 MG/DL (8.5-10.1); CREATININE SERUM 1.04 MG/DL (0.60-1.30); POTASSIUM 4.3 MMOL/L (3.6-5.0); TOTAL PROTEIN 6.4 GM/DL (6.4-8.2)
[2021-12-10 09:39] LABS: HEMATOCRIT 40 % (40-54); HEMOGLOBIN 13.7 g/dL (13.3-17.7); MEAN CORPUSCULAR HEMOGLOBIN 34 pg (25-34); MEAN CORPUSCULAR HGB CONC 34 g/dL (32-36); MEAN CORPUSCULAR VOLUME 99 fL (80-99); MEAN PLATELET VOLUME 9.9 fL (9.0-12.2); PLATELET COUNT 211 10^3/uL (130-400); WHITE BLOOD COUNT 6.3 10^3/uL (4.3-11.0)
[2021-12-10 10:06] LABS: ALBUMIN 3.8 GM/DL (3.2-4.5); BILIRUBIN,TOTAL 0.6 MG/DL (0.1-1.0); CREATININE SERUM 1.02 MG/DL (0.60-1.30); POTASSIUM 4.4 MMOL/L (3.6-5.0); TOTAL PROTEIN 6.3 GM/DL (6.4-8.2)
[~2021-12-23 08:12] MED LIST changes: -NS IV 500 ML 500 ML ONE; -fluorouraciL 4,800 MG in NS (IVPB) 51.2 ML IV SCH
== END 2022-01-02 | disposition home or self-care (01) ==
LOC: ONC 08:12
PROVIDERS: ATTEND Internal Medicine Hematology & Oncology
DX: Z51.11 Encounter for antineoplastic chemotherapy (principal); C19 Malignant neoplasm of rectosigmoid junction; C78.6 Secondary malignant neoplasm of retroperitoneum and peritoneum; G62.9 Polyneuropathy, unspecified; I10 Essential (primary) hypertension; I25.10 Atherosclerotic heart disease of native coronary artery without angina pectoris; E11.9 Type 2 diabetes mellitus without complications; E78.2 Mixed hyperlipidemia; E66.9 Obesity, unspecified
CPT/HCPCS: 36415; 36591; 80053; 82378; 85025; 85027; 96360; 96367; 96375; 96411; 96413; 99213

== ENCOUNTER 2022-01-29 10:52 | Outpatient (RCR) | payer MEDICARE ==
[2022-01-17 08:37] LABS: BASOPHILS % (AUTO) 0 % (0-10); EOSINOPHILS # (AUTO) 0.4 10^3/uL (0.0-0.3); EOSINOPHILS % (AUTO) 5 % (0-10); HEMATOCRIT 43 % (40-54); HEMOGLOBIN 14.8 g/dL (13.3-17.7); LYMPHOCYTES # (AUTO) 1.7 10^3/uL (1.0-4.0); LYMPHOCYTES % (AUTO) 19 % (12-44); MEAN CORPUSCULAR HEMOGLOBIN 34 pg (25-34); MEAN CORPUSCULAR HGB CONC 35 g/dL (32-36); MEAN CORPUSCULAR VOLUME 98 fL (80-99); MEAN PLATELET VOLUME 9.7 fL (9.0-12.2); MONOCYTES # (AUTO) 0.9 10^3/uL (0.0-1.0); MONOCYTES % (AUTO) 10 % (0-12); NEUTROPHILS # (AUTO) 5.9 10^3/uL (1.8-7.8); NEUTROPHILS % (AUTO) 65 % (42-75); PLATELET COUNT 310 10^3/uL (130-400)
[2022-01-17 09:04] LABS: BILIRUBIN,TOTAL 0.7 MG/DL (0.1-1.0); CALCIUM 9.5 MG/DL (8.5-10.1); CREATININE SERUM 1.07 MG/DL (0.60-1.30); POTASSIUM 4.3 MMOL/L (3.6-5.0); TOTAL PROTEIN 6.7 GM/DL (6.4-8.2)
[2022-01-27 10:04] LABS: BASOPHILS % (AUTO) 0 % (0-10); EOSINOPHILS # (AUTO) 0.4 10^3/uL (0.0-0.3); EOSINOPHILS % (AUTO) 5 % (0-10); HEMATOCRIT 44 % (40-54); LYMPHOCYTES # (AUTO) 1.6 10^3/uL (1.0-4.0); LYMPHOCYTES % (AUTO) 18 % (12-44); MEAN CORPUSCULAR HEMOGLOBIN 34 pg (25-34); MEAN CORPUSCULAR HGB CONC 34 g/dL (32-36); MEAN CORPUSCULAR VOLUME 99 fL (80-99); MEAN PLATELET VOLUME 9.3 fL (9.0-12.2); MONOCYTES # (AUTO) 0.8 10^3/uL (0.0-1.0); MONOCYTES % (AUTO) 9 % (0-12); NEUTROPHILS % (AUTO) 67 % (42-75); PLATELET COUNT 332 10^3/uL (130-400); WHITE BLOOD COUNT 8.9 10^3/uL (4.3-11.0)
[2022-01-27 10:24] LABS: ALBUMIN 3.8 GM/DL (3.2-4.5); BILIRUBIN,TOTAL 0.7 MG/DL (0.1-1.0); CALCIUM 9.5 MG/DL (8.5-10.1); CREATININE SERUM 0.96 MG/DL (0.60-1.30); POTASSIUM 3.9 MMOL/L (3.6-5.0); TOTAL PROTEIN 6.5 GM/DL (6.4-8.2)
[~2022-01-29] VITALS: Ht 177.8 cm; Wt 103.4 kg
[2022-02-04] MEDS ORDERED: OXYC5TAB PO (12:07)
== END 2022-02-02 | disposition home or self-care (01) ==
LOC: ONC 10:52
PROVIDERS: ATTEND Internal Medicine Hematology & Oncology
DX: C19 Malignant neoplasm of rectosigmoid junction (principal); C78.6 Secondary malignant neoplasm of retroperitoneum and peritoneum; G62.9 Polyneuropathy, unspecified; I10 Essential (primary) hypertension; I25.10 Atherosclerotic heart disease of native coronary artery without angina pectoris; E11.9 Type 2 diabetes mellitus without complications; E78.2 Mixed hyperlipidemia; E66.9 Obesity, unspecified
CPT/HCPCS: 36415; 36591; 80053; 82378; 85025; 96360; 96361; 96367; 96375; 96411; 96413; 99213

== ENCOUNTER 2022-02-03 11:40 | Observation (INO) | payer MEDICARE ==
[~2022-02-03] VITALS: Ht 175 cm; Wt 95.2 kg
[~2022-02-03 11:40] MED LIST changes: -ATROPINE INJ 0.4 MG/ML SDV IV SCH; -D5W IV SCH; -FAMOTIDINE 20MG/2ML IV (PEPCID) IV PRN; -FLUOROURACIL IV SCH; -FOSAPREPITANT (CANCER CENTER) 150 MG in NS (IVPB) CANCER CENTER ONLY 150 ML IV SCH; -HEParin (CENTRAL IV FLUSH) 500 UNIT/5 ML SYR IV PRN; -IRINOTECAN HCL IV SCH; -NS IV 1000 ML 1,000 ML ONE; -NS IV SCH; -PALONOSETRON HCL 0.25 MG, dexAMETHasone INJECTION 10 MG in NS (IVPB) 50 ML IV SCH; -diphenhydrAMINE 25 MG TAB (BENADRYL) PO SCH
[2022-02-03] MEDS ORDERED: NS IV 1000 ML 1,000 ML IV STA (11:54)
--- NOTE | 2022-02-03 11:59 | ED Abdominal Pain ---
General Chief Complaint: Abdominal/GI Problems Stated Complaint: ABD PAIN - VOMITING Source of Information: Patient Exam Limitations: No Limitations History of Present Illness Date Seen by Provider: Feb 03, 2022 Time Seen by Provider: 11:56 Initial Comments Patient is a 76-year-old male with a history of colon rectal cancer presents ED with generalized weakness, abdominal pain and some mild shortness of breath. Patient states he started feeling sick last Thursday. Patient states he was on chemotherapy for his colon rectal cancer about a year and a half ago. They stopped the chemotherapy secondary to his cancer markers improving. Started back up on Thursday and started feeling sick. He reports generalized abdominal pain over the past 3 to 4 days. Describes as sharp and intermittent. Has not been able to eat over the past 3 days with vomiting 2-3 episodes daily. He states he does feel somewhat short of breath without any specific chest pain. History of coronary artery disease but denies COPD or asthma. Decreased urine output. He was sent over the ED concern for bowel obstruction. No history of previous abdominal surgery. Denies fever, headache, visual changes. Reports some mild nasal congestion. Patient states he put him on a medication for his diarrhea last week as he started developed diarrhea. He is having bowel movements but not as much. Denies hard stool. Denies any dark tarry stool, blood in his mucus Allergies and Home Medications Allergies Coded Allergies: leucovorin (Unverified Allergy, Severe, 09/25/21) POSSIBLE SEVERE REACTION oxaliplatin (Verified Allergy, Severe, Anaphylaxis, 07/23/21) Patient Home Medication List Home Medication List Reviewed: Yes Ascorbic Acid (Vitamin C) 1,000 Mg Tablet, 1,000 MG PO DAILY, (Reported) Entered as Reported by: KAREN ORNELAS on 07/29/21 0842 Aspirin (Aspirin) 81 Mg Tab.chew, 81 MG PO DAILY, (Reported) Entered as Reported by: KAREN ORNELAS on 07/29/21 0842 Atorvastatin Calcium (Atorvastatin Calcium) 10 Mg Tablet, 10 MG PO HS Prescribed by: KATE FARIAS on 11/06/21 1630 Cholecalciferol (Vitamin D3) (Vitamin D3) 125 Mcg Tab.rapdis, 125 MCG PO DAILY, (Reported) Entered as Reported by: KAREN ORNELAS on 07/29/21 0842 Clopidogrel Bisulfate (Clopidogrel) 75 Mg Tablet, 75 MG PO DAILY Prescribed by: KATE FARIAS on 11/06/21 1630 Cranberry Fruit (Cranberry) 450 Mg Tablet, 450 MG PO DAILY, (Reported) Entered as Reported by: KAREN ORNELAS on 07/29/21 0842 Guaifenesin/Pseudoephedrne HCl (Mucinex D ER 1,200-120 mg Tab) 1,200 Mg-120 Mg Tab.er.12h, 1 EACH PO DAILY, (Reported) Entered as Reported by: JO COTTER on 11/06/21 0814 Levocetirizine Dihydrochloride (Xyzal) 5 Mg Tablet, 5 MG PO HS, (Reported) Entered as Reported by: KAREN ORNELAS on 07/29/21 08 Lisinopril (Lisinopril) 5 Mg Tablet, 5 MG PO DAILY, (Reported) Entered as Reported by: KAREN ORNELAS on 07/29/21 08 Lysine HCl (l-Lysine) 500 Mg Tablet, 1,000 MG PO DAILY, (Reported) Entered as Reported by: KAREN ORNELAS on 07/29/21 08 Metformin HCl (Metformin HCl) 500 Mg Tablet, 500 MG PO BID, (Reported) Entered as Reported by: MICHELLE LIMON on 03/28/21 1252 Metoprolol Succinate (Metoprolol Succinate) 25 Mg Tab.er.24h, 25 MG PO DAILY, (Reported) Entered as Reported by: MICHELLE LIMON on 03/28/21 1252 Multivit-Min/FA/Lycopen/Lutein (Centrum Silver Men Tablet) 1 Each Tablet, 1 EACH PO DAILY, (Reported) Entered as Reported by: KAREN ORNELAS on 07/29/21 0842 Ondansetron HCl (Zofran) 4 Mg Tab, 4 MG PO Q6H Prescribed by: SARAH HOUGH on 03/29/21 1504 Pantoprazole Sodium (Pantoprazole Sodium) 40 Mg Tablet.dr, 40 MG PO DAILY, (Reported) Entered as Reported by: JO COTTER on 11/06/21 0812 Polyethylene Glycol 3350 (Miralax) 17 Gm Powd.pack, 17 GM PO DAILY, (Reported) Entered as Reported by: KAREN ORNELAS on 07/29/21 0842 Review of Systems Review of Systems Constitutional: No diaphoresis; malaise, weakness EENTM: No Eye Pain Respiratory: Denies Cough; Shortness of Air Cardiovascular: Denies Chest Pain Gastrointestinal: Abdominal Pain, Nausea, Vomiting Genitourinary: Denies Discharge, Denies Drainage, Denies Frequency, Denies Flank Pain Musculoskeletal: No back pain, No joint pain Psychiatric/Neurological: Denies Anxiety All Other Systems Reviewed Negative Unless Noted: Yes Past Awdaphp-Jrexzu-Ofebrv Hx Immunizations Up To Date First/Initial COVID19 Vaccinat: August COVID19 Vaccination Jeremiah: September COVID19 Vaccination Date: AUGUST Seasonal Allergies Seasonal Allergies: Yes Past Medical History Surgery/Hospitalization HX: STAGE 4 COLON CANCER Surgeries: Yes Eye Surgery, Orthopedic Respiratory: No Currently Using CPAP: No Currently Using BIPAP: No Cardiac: Yes (Paroxysmal atrial tachycardia) Hypertension Neurological: No Genitourinary: No Gastrointestinal: Yes (Colon/Rectal cancer) Musculoskeletal: No Endocrine: Yes Diabetes, Non-Insulin dep HEENT: No Cancer: Yes (Colon/rectal) Colon Psychosocial: No Integumentary: No Blood Disorders: No Family Medical History No Pertinent Family Hx, Heart Disease Physical Exam Vital Signs Vital Signs - First Documented 02/03/22 11:47 Temp 36.4 Pulse 99 Resp 18 B/P (MAP) 151/89 (109) Pulse Ox 95 O2 Delivery Room Air Capillary Refill : Height/Weight/BMI Height: 5'9.00" Weight: 240lbs. oz. [id number]; 32.93 BMI Method: General Appearance: WD/WN, no apparent distress HEENT: PERRL/EOMI, normal ENT inspection, TMs normal, pharynx normal Neck: non-tender, full range of motion, supple, normal inspection Respiratory: chest non-tender, lungs clear, normal breath sounds, no respiratory distress, no accessory muscle use Cardiovascular: regular rate, rhythm, no edema, no gallop, no JVD Gastrointestinal: normal bowel sounds, soft, no organomegaly, no pulsatile mass, other (Diffuse abdominal tenderness.) Extremities: normal range of motion, non-tender, normal inspection Back: normal inspection, no CVA tenderness Neurologic/Psychiatric: outsole leveler II-XII nml as tested, no motor/sensory deficits, alert, oriented x 3 Skin: normal color, warm/dry Progress/Results/Core Measures Results/Orders Lab Results Laboratory Tests Test 02/03/22 12:20 02/03/22 12:47 02/03/22 13:32 Range/Units White Blood Count 3.6 L 4.3-11.0 10^3/uL Red Blood Count 4.53 4.30-5.52 10^6/uL Hemoglobin 14.9 13.3-17.7 g/dL Hematocrit 42 40-54 % Mean Corpuscular Volume 93 80-99 fL Mean Corpuscular Hemoglobin 33 25-34 pg Mean Corpuscular Hemoglobin Concent 35 32-36 g/dL Red Cell Distribution Width 11.9 10.0-14.5 % Platelet Count 347 130-400 10^3/uL Mean Platelet Volume 9.0 9.0-12.2 fL Immature Granulocyte % (Auto) 0 % Neutrophils (%) (Auto) 40 L 42-75 % Lymphocytes (%) (Auto) 36 12-44 % Monocytes (%) (Auto) 18 H 0-12 % Eosinophils (%) (Auto) 5 0-10 % Basophils (%) (Auto) 1 0-10 % Neutrophils # (Auto) 1.5 L 1.8-7.8 10^3/uL Lymphocytes # (Auto) 1.3 1.0-4.0 10^3/uL Monocytes # (Auto) 0.6 0.0-1.0 10^3/uL Eosinophils # (Auto) 0.2 0.0-0.3 10^3/uL Basophils # (Auto) 0.0 0.0-0.1 10^3/uL Immature Granulocyte # (Auto) 0.0 0.0-0.1 10^3/uL Sodium Level 133 L 135-145 MMOL/L Potassium Level 3.5 L 3.6-5.0 MMOL/L Chloride Level 99 98-107 MMOL/L Carbon Dioxide Level 21 21-32 MMOL/L Anion Gap 13 5-14 MMOL/L Blood Urea Nitrogen 13 7-18 MG/DL Creatinine 0.84 0.60-1.30 MG/DL Estimat Glomerular Filtration Rate 89 BUN/Creatinine Ratio 15 Glucose Level 162 H 70-105 MG/DL Calcium Level 8.7 8.5-10.1 MG/DL Corrected Calcium 9.3 8.5-10.1 MG/DL Magnesium Level 1.7 1.6-2.4 MG/DL Total Bilirubin 0.7 0.1-1.0 MG/DL Aspartate Amino Transf (AST/SGOT) 23 5-34 U/L Alanine Aminotransferase (ALT/SGPT) 43 0-55 U/L Alkaline Phosphatase 66 40-136 U/L Troponin I < 0.028 <0.028 NG/ML C-Reactive Protein High Sensitivity 4.49 H 0.00-0.50 MG/DL B-Type Natriuretic Peptide 64.4 <100.0 PG/ML Total Protein 5.5 L 6.4-8.2 GM/DL Albumin 3.3 3.2-4.5 GM/DL Lipase 11 8-78 U/L Monoscreen NEGATIVE NEGATIVE Influenza Type A (RT-PCR) Not Detected Not Detecte Influenza Type B (RT-PCR) Not Detected Not Detecte SARS-CoV-2 RNA (RT-PCR) Not Detected Not Detecte Urine Color DARK YELLOW Urine Clarity SL CLOUDY Urine pH 6.0 5-9 Urine Specific [place] 1.020 1.016-1.022 Urine Protein TRACE H NEGATIVE Urine Glucose (UA) NEGATIVE NEGATIVE Urine Ketones 2+ H NEGATIVE Urine Nitrite POSITIVE H NEGATIVE Urine Bilirubin NEGATIVE NEGATIVE Urine Urobilinogen 1.0 < = 1.0 MG/DL Urine Leukocyte Esterase 1+ H NEGATIVE Urine RBC (Auto) TRACE-I H NEGATIVE Urine RBC 0-2 /HPF Urine WBC 25-50 H /HPF Urine Squamous Epithelial Cells 0-2 /HPF Urine Crystals NONE /LPF Urine Bacteria LARGE H /HPF Urine Casts NONE /LPF Urine Mucus NEGATIVE /LPF Urine Culture Indicated YES My Orders Orders - ROSIE CORDOVA PA Urinalysis (02/03/22 11:42) Cbc With Automated Diff (02/03/22 11:54) Comprehensive Metabolic Panel (02/03/22 11:54) Bnp [place] (02/03/22 11:54) Lipase (02/03/22 11:54) Magnesium (02/03/22 11:54) Hs C Reactive Protein (02/03/22 11:54) Troponin I [place] (02/03/22 11:54) Ekg Tracing (02/03/22 11:54) Chest 1 View, Ap/Pa Only (02/03/22 11:54) Covid 19 Inhouse Test (02/03/22 11:54) Influenza A And B By Pcr (02/03/22 11:54) Ct Abdomen/Pelvis W (02/03/22 11:54) Iv/Invasive Line Insertion .IV start (02/03/22 11:54) Ns Iv 1000 Ml (Sodium Chloride 0.9%) (02/03/22 11:54) Iohexol Injection (Omnipaque 350 Mg/Ml 1 (02/03/22 12:15) Iohexol Injection (Omnipaque 350 Mg/Ml 1 (02/03/22 12:15) Received Contrast (Hold Metformin- Contr (02/03/22 12:15) Sodium Chloride Flush (Catheter Flush Sy (02/03/22 12:15) Ns (Ivpb) (Sodium Chloride 0.9% Ivpb Bag (02/03/22 12:15) Ondansetron Injection (Zofran Injectio (02/03/22 12:45) Monotest (02/03/22 12:44) Iohexol Injection (Omnipaque 350 Mg/Ml 1 (02/03/22 13:15) Received Contrast (Hold Metformin- Contr (02/03/22 13:15) Ns (Ivpb) (Sodium Chloride 0.9% Ivpb Bag (02/03/22 13:15) Urine Culture (02/03/22 13:32) Blood Culture (02/03/22 14:25) Lactic Acid Analyzer (02/03/22 14:25) Ceftriaxone 1 Gm Pre-Mix (Rocephin 1 Gm (02/03/22 14:25) Ed Admission (Communication) (02/03/22 14:43) Medications Given in ED Current Medications Medications Dose Ordered Sig/Robert Route Start Time Stop Time Status Last Admin Dose Admin Iohexol 100 ml ONCE ONCE IV 02/03/22 12:15 02/03/22 12:16 DC 02/03/22 13:17 100 ML Ondansetron HCl 4 mg ONCE ONCE IVP 02/03/22 12:45 02/03/22 12:46 DC 02/03/22 12:54 4 MG Sodium Chloride 100 ml ONCE ONCE IV 02/03/22 12:15 02/03/22 12:16 DC 02/03/22 13:17 100 ML Vital Signs/I&O 02/03/22 11:47 Temp 36.4 Pulse 99 Resp 18 B/P (MAP) 151/89 (109) Pulse Ox 95 O2 Delivery Room Air Comment Sinus rhythm with occasional ventricular premature complexes, left anterior fascicular block, 89 bpm, QRS duration 112 MS, QTc 406 MS Departure Communication (PCP) Patient with a history of adenocarcinoma the rectum was diagnosed at [facility] which he sees an oncologist as well as a general surgeon. I was able to discuss with family who patient followed up with. Had a colonoscopy performed by Dr. Feldman that noted adenocarcinoma of the colon. It was recommended to treat conservatively. Does follow-up with an oncologist Dr. Greene as well as Dr. Price for his current treatment. Was treated with a chemotherapy and stopped and restarted this past Thursday secondary to elevated markers. Patient with intermittent abdominal pain with vomiting over the past 3 to 4 days. States he has not been feeling well since last Thursday. Patient had white blood count of 3.6. He patient was slightly tachycardic. Slight elevated CRP. Patient appears dehydrated. Cardiac work-up unremarkable with negative chest x-ray. Eventually patient's urine returned as potential UTI. Was treated with Rocephin after blood cultures were ordered. Lactic acid currently pending. CT abdomen and pelvis concerning for small partial bowel obstruction with masslike near the ileocecal valve. Mesenteric involvement. Patient was discussed with Dr. Price patient oncologist who recommended IV fluids and bowel rest at this point since operative was not recommended. Discussed patient with Dr. Hough who agrees to consult but will continue with conservative measures at this time. Patient was accepted by Dr. Ratliff. Impression Primary Impression: Partial bowel obstruction Additional Impression: UTI (urinary tract infection) Disposition: ADMITTED INPATIENT Condition: Stable Admissions Decision to Admit Reason: Admit from ER (General) Decision to Admit/Date: Feb 03, 2022 Time/Decision to Admit Time: 14:43 Departure-Patient Inst. Referrals: MARSHALL NOLAN MD (PCP/Family) Primary Care Physician ROSIE CORDOVA Feb 03, 2022 11:59
[2022-02-03] MEDS ORDERED: IOHEXOL 350 MG/ML 100 ML (OMNIPAQUE 350) VIAL IV ONE ×3 (12:15→13:15)
[2022-02-03] MEDS ORDERED: CATHETER FLUSH 10 ML SYR IV PRN (12:15)
[2022-02-03] MEDS ORDERED: NS 100 ML (IVPB) BAG IV ONE ×2 (12:15→13:15)
[2022-02-03] MEDS ORDERED: HOLD METFORMIN - RECEIVED CONTRAST 20 ML VIAL IV SCH ×2 (12:15→13:15)
[2022-02-03 12:37] LABS: BASOPHILS % (AUTO) 1 % (0-10); EOSINOPHILS # (AUTO) 0.2 10^3/uL (0.0-0.3); EOSINOPHILS % (AUTO) 5 % (0-10); HEMATOCRIT 42 % (40-54); HEMOGLOBIN 14.9 g/dL (13.3-17.7); LYMPHOCYTES # (AUTO) 1.3 10^3/uL (1.0-4.0); LYMPHOCYTES % (AUTO) 36 % (12-44); MEAN CORPUSCULAR HEMOGLOBIN 33 pg (25-34); MEAN CORPUSCULAR HGB CONC 35 g/dL (32-36); MEAN CORPUSCULAR VOLUME 93 fL (80-99); MONOCYTES # (AUTO) 0.6 10^3/uL (0.0-1.0); MONOCYTES % (AUTO) 18 % (0-12); NEUTROPHILS # (AUTO) 1.5 10^3/uL (1.8-7.8); NEUTROPHILS % (AUTO) 40 % (42-75); PLATELET COUNT 347 10^3/uL (130-400); WHITE BLOOD COUNT 3.6 10^3/uL (4.3-11.0)
[2022-02-03] MEDS ORDERED: ONDANSETRON 4 MG/2 ML (SDV) Z0FRAN IVP ONE (12:45)
[2022-02-03 13:02] LABS: ALANINE AMINOTRANSFERASE 43 U/L (0-55); ALBUMIN 3.3 GM/DL (3.2-4.5); ALKALINE PHOSPHATASE 66 U/L (40-136); BILIRUBIN,TOTAL 0.7 MG/DL (0.1-1.0); BUN/CREATININE RATIO 15; CALCIUM 8.7 MG/DL (8.5-10.1); CARBON DIOXIDE 21 MMOL/L (21-32); CHLORIDE 99 MMOL/L (98-107); CREATININE SERUM 0.84 MG/DL (0.60-1.30); GFR ESTIMATED 89; GLUCOSE 162 MG/DL (70-105); LIPASE 11 U/L (8-78); MAGNESIUM 1.7 MG/DL (1.6-2.4); POTASSIUM 3.5 MMOL/L (3.6-5.0); SODIUM 133 MMOL/L (135-145); TOTAL PROTEIN 5.5 GM/DL (6.4-8.2)
--- NOTE | 2022-02-03 13:28 | Diagnostic Imaging Report ---
INDICATION: Abdominal pain KUB 1:25 PM Right IJ Port-A-Cath tip projects over the SVC. Heart size and pulmonary vascularity are normal. Lungs are clear. There are no effusions or pneumothoraces. IMPRESSION: No acute abnormalities in the chest. Dictated by: Dictated on workstation # [id number]
[2022-02-03 13:40] LABS: CLARITY,URINE SL CLOUDY; COLOR,URINE DARK YELLOW; GLUCOSE, URINE (UA) NEGATIVE (NEGATIVE); KETONES,URINE 2+ (NEGATIVE); LEUKOCYTE ESTERASE ,URINE 1+ (NEGATIVE); NITRITE,URINE POSITIVE (NEGATIVE); PROTEIN,URINE TRACE (NEGATIVE)
--- NOTE | 2022-02-03 13:44 | Diagnostic Imaging Report ---
EXAMINATION: CT abdomen and pelvis with intravenous contrast. TECHNIQUE: Multiple contiguous axial images were obtained through the abdomen and pelvis after the uneventful administration of intravenous contrast. All CT scans use one or more of the following dose optimizing techniques: automated exposure control, MA and/or KvP adjustment based on patient size and exam type or iterative reconstruction. HISTORY: Abdominal pain COMPARISON: 05/23/2021 FINDINGS: Limited views of the lower thorax are unremarkable. Segment 2 liver lesion is unchanged and likely a cyst. There is no biliary ductal dilation. Gallbladder is normal. Pancreas is normal. Spleen is normal. Adrenal glands are normal. Simple cyst is present in the left kidney. No suspicious renal lesions. There is no hydronephrosis. There is a right lateral bladder wall diverticulum. There is a masslike area of soft tissue thickening at the ileocecal valve. The upstream small bowel is dilated and mildly thick-walled suggestive of a partial obstruction. There is omental stranding. Small amount of free fluid is present. No free air. No abdominal or pelvic lymphadenopathy. Aorta is normal in caliber without aneurysm. There are no suspicious osseus lesions. IMPRESSION: 1. Masslike area of soft tissue thickening at the ileocecal valve with wall thickening and dilation of the upstream small bowel concerning for partial obstruction. Findings concerning for malignant obstruction. 2. Omental stranding and small amount of free fluid concerning for omental spread of disease. Dictated by: Dictated on workstation # [id number]
[2022-02-03 13:54] LABS: BACTERIA,URINE LARGE /HPF; BILIRUBIN,URINE NEGATIVE (NEGATIVE); RBC,URINE 0-2 /HPF; SQUAMOUS EPITHELIAL CELL,UR 0-2 /HPF; WBC,URINE 25-50 /HPF
[2022-02-03] MEDS ORDERED: cefTRIAXone 1 GM PRE-MIX 50 ML IV STA (14:25)
[2022-02-03 16:30] VITALS: BP 151/74
[2022-02-03] MEDS ORDERED: MELATONIN 3 MG TABLET PO PRN (16:30)
[2022-02-03] MEDS ORDERED: CALCIUM CARBONATE 500 MG (TUMS) TAB.CHEW PO PRN (16:30)
[2022-02-03] MEDS ORDERED: diphenhydrAMINE 50 MG/ML INJ (BENADRYL) IVP PRN (16:30)
[2022-02-03] MEDS ORDERED: ACETAMINOPHEN 325 MG TABLET PO PRN (16:30)
[2022-02-03] MEDS ORDERED: diphenhydrAMINE 25 MG TAB (BENADRYL) PO PRN (16:30)
[2022-02-03] MEDS ORDERED: NS IV 500 ML 500 ML IV PRN (16:30)
[2022-02-03] MEDS ORDERED: ANTACID SUSP 30 ML UDC (MYLANTA) PO PRN (16:30)
[2022-02-03] MEDS ORDERED: ONDANSETRON 4 MG (ZOFRAN) ORAL DISSOLVE TAB PO PRN (16:30)
[2022-02-03] MEDS ORDERED: ONDANSETRON 4 MG/2 ML (SDV) Z0FRAN IV PRN (16:30)
[2022-02-03] MEDS ORDERED: ENOXAPARIN 40 MG/0.4 ML (LOVENOX) SYR SQ SCH (17:00)
[2022-02-03] MEDS ORDERED: oxyCODONE/APAP 5/325MG (PERCOCET 5) TABLET PO PRN (17:30)
--- NOTE | 2022-02-03 19:25 | Consultation - Surgery ---
SANGEETA GAMING 02/03/221924: History of Present Illness History of Present Illness Patient Consulted On(reymundo/time) 02/03/22 19:19 Date Seen by Provider: Feb 03, 2022 Time Seen by Provider: 19:19 History of Present Illness Patient for consult by Dr. Ratliff for partial bowel obstruction found on CT abd/pelvis today. Patient is a 76 y/o M with hx of Stage 4 Colon Cancer, HTN, CAD, NIDDM who presents with CC abdominal pain and nausea onset 1 week ago. Patient states pain began after restarting chemo tx a week ago. Patient describes abdominal pain as sharp but intermittent with no radiation to any other location. He also states pain has now improved since arrival. Patient is also being managed by Dr. Greene and Dr. Price at [facility]. Allergies and Home Medications Allergies Coded Allergies: leucovorin (Unverified Allergy, Severe, 09/25/21) POSSIBLE SEVERE REACTION oxaliplatin (Verified Allergy, Severe, Anaphylaxis, 07/23/21) Patient Home Medication List Home Medication List Reviewed: Yes Ascorbic Acid (Vitamin C) 1,000 Mg Tablet, 1,000 MG PO DAILY, (Reported) Entered as Reported by: KAREN ORNELAS on 07/29/21 0842 Aspirin (Aspirin) 81 Mg Tab.chew, 81 MG PO DAILY, (Reported) Entered as Reported by: KAREN ORNELAS on 07/29/21 0842 Atorvastatin Calcium (Atorvastatin Calcium) 10 Mg Tablet, 10 MG PO HS Prescribed by: KATE FARIAS on 11/06/21 1630 Cholecalciferol (Vitamin D3) (Vitamin D3) 125 Mcg Tab.rapdis, 125 MCG PO DAILY, (Reported) Entered as Reported by: KAREN ORNELAS on 07/29/21 0842 Clopidogrel Bisulfate (Clopidogrel) 75 Mg Tablet, 75 MG PO DAILY Prescribed by: KATE FARIAS on 11/06/21 1630 Cranberry Fruit (Cranberry) 450 Mg Tablet, 450 MG PO DAILY, (Reported) Entered as Reported by: KAREN ORNELAS on 07/29/21 0842 Guaifenesin/Pseudoephedrne HCl (Mucinex D ER 1,200-120 mg Tab) 1,200 Mg-120 Mg Tab.er.12h, 1 EACH PO DAILY, (Reported) Entered as Reported by: JO COTTER on 11/06/21 0814 Levocetirizine Dihydrochloride (Xyzal) 5 Mg Tablet, 5 MG PO HS, (Reported) Entered as Reported by: KAREN ORNELAS on 07/29/21 0842 Lisinopril (Lisinopril) 5 Mg Tablet, 5 MG PO DAILY, (Reported) Entered as Reported by: KAREN ORENLAS on 07/29/21 0842 Lysine HCl (l-Lysine) 500 Mg Tablet, 1,000 MG PO DAILY, (Reported) Entered as Reported by: KAREN ORNELAS on 07/29/21 0842 Metformin HCl (Metformin HCl) 500 Mg Tablet, 500 MG PO BID, (Reported) Entered as Reported by: MICHELLE LIMON on 03/28/21 1252 Metoprolol Succinate (Metoprolol Succinate) 25 Mg Tab.er.24h, 25 MG PO DAILY, (Reported) Entered as Reported by: MICHELLE LIMON on 03/28/21 1252 Multivit-Min/FA/Lycopen/Lutein (Centrum Silver Men Tablet) 1 Each Tablet, 1 EACH PO DAILY, (Reported) Entered as Reported by: KAREN ORNELAS on 07/29/21 0842 Ondansetron HCl (Zofran) 4 Mg Tab, 4 MG PO Q6H Prescribed by: SARAH HOUGH on 03/29/21 1504 Pantoprazole Sodium (Pantoprazole Sodium) 40 Mg Tablet.dr, 40 MG PO DAILY, (Reported) Entered as Reported by: JO COTTER on 11/06/21 0812 Polyethylene Glycol 3350 (Miralax) 17 Gm Powd.pack, 17 GM PO DAILY, (Reported) Entered as Reported by: KAREN ORNELAS on 07/29/21 0842 Past Prxgbqa-Ufwotq-Gjvfyu Hx Patient Social History Former Smoker, Quit: Mar 28, 1976 Recent Hopitalizations: No Alcohol Use?: No Have you traveled recently?: No Immunizations Up To Date Date of Pneumonia Vaccine: November 12, 1999 Seasonal Allergies Seasonal Allergies: Yes Surgeries History of Surgeries: Yes Surgeries: Eye Surgery, Orthopedic Respiratory History of Respiratory Disorde: No Cardiovascular History of Cardiac Disorders: Yes (Paroxysmal atrial tachycardia) Cardiac Disorders: Coronary Artery Disease, Hypertension Neurological History of Neurological Disord: No Genitourinary History of Genitourinary Disor: No Gastrointestinal History of Gastrointestinal Di: Yes (Stage 4 Colon/Rectal cancer) Musculoskeletal History of Musculoskeletal Dis: No Endocrine History of Endocrine Disorders: Yes Endocrine Disorders: Diabetes, Non-Insulin dep HEENT History of HEENT Disorders: No Cancer History of Cancer: Yes (Stage 4 Colon/rectal) Cancer: Colon Psychosocial History of Psychiatric Problem: No Integumentary History of Skin or Integumenta: No Blood Transfusions History of Blood Disorders: No Family Medical History Significant Family History: No Pertinent Family Hx, Heart Disease Review of Systems-General Constitutional: No chills, No fever EENTM: no symptoms reported; No ear pain, No blurred vision Respiratory: No cough, No short of breath Cardiovascular: No chest pain, No palpitations Gastrointestinal: abdominal pain (RUQ mild tenderness), diarrhea, nausea, other (belching) Genitourinary: No discharge, No hematuria Musculoskeletal: No joint pain, No joint swelling Skin: No pruritus, No rash Psychiatric/Neurological: Denies Anxiety, Denies Depressed All Other Systems Reviewed Negative Unless Noted: Yes Physical Exam-General Problems Physical Exam Vital Signs Vital Signs - First Documented 02/03/22 11:47 Temp 36.4 Pulse 99 Resp 18 B/P (MAP) 151/89 (109) Pulse Ox 95 O2 Delivery Room Air Capillary Refill : Less Than 3 Seconds General Appearance: no apparent distress HEENT: PERRL/EOMI Respiratory: chest non-tender, no respiratory distress, no accessory muscle use Cardiovascular: normal peripheral pulses, no JVD Gastrointestinal: normal bowel sounds, soft, distended, tenderness (mild generalized tenderness) Neurologic/Psychiatric: alert, normal mood/affect, oriented x 3 Data Review Labs Laboratory Tests 02/03/22 12:20: White Blood Count 3.6L, Red Blood Count 4.53, Hemoglobin 14.9, Hematocrit 42, Mean Corpuscular Volume 93, Mean Corpuscular Hemoglobin 33, Mean Corpuscular Hemoglobin Concent 35, Red Cell Distribution Width 11.9, Platelet Count 347, Mean Platelet Volume 9.0, Immature Granulocyte % (Auto) 0, Neutrophils (%) (Auto) 40L, Lymphocytes (%) (Auto) 36, Monocytes (%) (Auto) 18H, Eosinophils (%) (Auto) 5, Basophils (%) (Auto) 1, Neutrophils # (Auto) 1.5L, Lymphocytes # (Auto) 1.3, Monocytes # (Auto) 0.6, Eosinophils # (Auto) 0.2, Basophils # (Auto) 0.0, Immature Granulocyte # (Auto) 0.0, Sodium Level 133L, Potassium Level 3.5L, Chloride Level 99, Carbon Dioxide Level 21, Anion Gap 13, Blood Urea Nitrogen 13, Creatinine 0.84, Estimat Glomerular Filtration Rate 89, BUN/Creatinine Ratio 15, Glucose Level 162H, Calcium Level 8.7, Corrected Calcium 9.3, Magnesium Le jud 1.7, Total Bilirubin 0.7, Aspartate Amino Transf (AST/SGOT) 23, Alanine Aminotransferase (ALT/SGPT) 43, Alkaline Phosphatase 66, Troponin I < 0.028, C- Reactive Protein High Sensitivity 4.49H, B-Type Natriuretic Peptide 64.4, Total Protein 5.5L, Albumin 3.3, Lipase 11, Monoscreen NEGATIVE 02/03/22 12:47: Influenza Type A (RT-PCR) Not Detected, Influenza Type B (RT-PCR) Not Detected, SARS-CoV-2 RNA (RT-PCR) Not Detected 02/03/22 13:32: Urine Color DARK YELLOW, Urine Clarity SL CLOUDY, Urine pH 6.0, Urine Specific [place] 1.020, Urine Protein TRACEH, Urine Glucose (UA) NEGATIVE, Urine Ketones 2+H, Urine Nitrite POSITIVEH, Urine Bilirubin NEGATIVE, Urine Urobilinogen 1.0, Urine Leukocyte Esterase 1+H, Urine RBC (Auto) TRACE-IH, Urine RBC 0-2, Urine WBC 25-50H, Urine Squamous Epithelial Cells 0-2, Urine Crystals NONE, Urine Bacteria LARGEH, Urine Casts NONE, Urine Mucus NEGATIVE, Urine Culture Indicated YES 02/03/22 15:30: Lactic Acid Level 0.83 Assessment/Plan Assessment/Plan Assessment/Plan Small Bowel Obstruction near ileocecal valve Stage 4 Colon Cancer Plan for small bowel follow through study, discussed with patient who is agreeable. Start clear liquid diet. SARAH HOUGH DO 02/03/221945: History of Present Illness History of Present Illness History of Present Illness Patient stage 4 colon cancer. He restarted chemotherapy last week. Patient last couple days began having abdominal pain, nausea and vomiting. Pain was sharp and in ruq. No radiation. Nausea and vomiting improved currently. On clear liquids. BM today. Denies fever sweats chills shortness of breath or chest pain. Ct scan today in ER demonstrating partial small bowel obstruction with possible ma ss at the ileocecal valve and mesenteric and omental spread. Allergies and Home Medications Allergies Coded Allergies: leucovorin (Unverified Allergy, Severe, 09/25/21) POSSIBLE SEVERE REACTION oxaliplatin (Verified Allergy, Severe, Anaphylaxis, 07/23/21) Patient Home Medication List Home Medication List Reviewed: Yes Ascorbic Acid (Vitamin C) 1,000 Mg Tablet, 1,000 MG PO DAILY, (Reported) Entered as Reported by: KAREN ORNELAS on 07/29/21 0842 Aspirin (Aspirin) 81 Mg Tab.chew, 81 MG PO DAILY, (Reported) Entered as Reported by: KAREN ORNELAS on 07/29/21 0842 Atorvastatin Calcium (Atorvastatin Calcium) 10 Mg Tablet, 10 MG PO HS Prescribed by: KATE FARIAS on 11/06/21 1630 Cholecalciferol (Vitamin D3) (Vitamin D3) 125 Mcg Tab.rapdis, 125 MCG PO DAILY, (Reported) Entered as Reported by: KAREN ORNELAS on 07/29/21 0842 Clopidogrel Bisulfate (Clopidogrel) 75 Mg Tablet, 75 MG PO DAILY Prescribed by: KATE FARIAS on 11/06/21 1630 Cranberry Fruit (Cranberry) 450 Mg Tablet, 450 MG PO DAILY, (Reported) Entered as Reported by: KAREN ORNELAS on 07/29/21 0842 Guaifenesin/Pseudoephedrne HCl (Mucinex D ER 1,200-120 mg Tab) 1,200 Mg-120 Mg Tab.er.12h, 1 EACH PO DAILY, (Reported) Entered as Reported by: JO COTTER on 11/06/21 0814 Levocetirizine Dihydrochloride (Xyzal) 5 Mg Tablet, 5 MG PO HS, (Reported) Entered as Reported by: AKREN ORNELAS on 07/29/21 0842 Lisinopril (Lisinopril) 5 Mg Tablet, 5 MG PO DAILY, (Reported) Entered as Reported by: KAREN ORNELAS on 07/29/21 0842 Lysine HCl (l-Lysine) 500 Mg Tablet, 1,000 MG PO DAILY, (Reported) Entered as Reported by: KAREN ORNELAS on 07/29/21 0842 Metformin HCl (Metformin HCl) 500 Mg Tablet, 500 MG PO BID, (Reported) Entered as Reported by: MICHELLE LIMON on 03/28/21 1252 Metoprolol Succinate (Metoprolol Succinate) 25 Mg Tab.er.24h, 25 MG PO DAILY, (Reported) Entered as Reported by: MICHELLE LIMON on 03/28/21 1252 Multivit-Min/FA/Lycopen/Lutein (Centrum Silver Men Tablet) 1 Each Tablet, 1 EACH PO DAILY, (Reported) Entered as Reported by: KAREN ORNELAS on 07/29/21 0842 Ondansetron HCl (Zofran) 4 Mg Tab, 4 MG PO Q6H Prescribed by: SARAH HOUGH on 03/29/21 1504 Pantoprazole Sodium (Pantoprazole Sodium) 40 Mg Tablet.dr, 40 MG PO DAILY, (Reported) Entered as Reported by: JO COTTER on 11/06/21 0812 Polyethylene Glycol 3350 (Miralax) 17 Gm Powd.pack, 17 GM PO DAILY, (Reported) Entered as Reported by: KAREN ORNELAS on 07/29/21 0842 Past Tebjgkd-Nodrjo-Zanojw Hx Reviewed Nursing Assessment Reviewed/Agree w Nursing PMH: Yes Family Medical History Significant Family History: No Pertinent Family Hx Review of Systems-General Constitutional: No chills, No fever EENTM: No ear pain, No blurred vision Respiratory: No cough, No short of breath Cardiovascular: No chest pain, No palpitations Gastrointestinal: abdominal pain (RUQ), diarrhea, nausea, vomiting Genitourinary: No discharge, No hematuria Musculoskeletal: No joint pain, No joint swelling Skin: No change in color, No change in hair/nails, No pruritus, No rash Psychiatric/Neurological: Denies Anxiety, Denies Depressed, Denies Emotional Problems All Other Systems Reviewed Negative Unless Noted: Yes (Negative excepted noted.) Physical Exam-General Problems Physical Exam General Appearance: WD/WN, no apparent distress HEENT: PERRL/EOMI, normal ENT inspection Neck: non-tender, supple Respiratory: chest non-tender, no respiratory distress, no accessory muscle use Cardiovascular: regular rate, rhythm, no JVD Gastrointestinal: soft, distended (minimal), tenderness (mild generalized tenderness) Rectal: deferred Back: no CVA tenderness, no vertebral tenderness Extremities: normal inspection, no pedal edema Neurologic/Psychiatric: alert, normal mood/affect, oriented x 3 Skin: normal color, warm/dry Lymphatic: no adenopathy Assessment/Plan Assessment/Plan Assessment/Plan stage 4 rectal cancer nonoperative management at partial small bowel obstruction nausea and vomiting clear liquids oncology consulted ct scan reviewed parital sbo possible further pathology at ileocecal valve will get small bowel follow through to check to see if obstructed, concern for messenteric and omental disease Supervisory-Addendum Brief Verification & Attestation Participated in pt care: history, MDM, physical Personally performed: exam, history, MDM, supervision of care Care discussed with: Medical Student Procedures: n/a Results interpretation: Verified all documentation Verification and Attestation of Medical Student E/M Service A medical student performed and documented this service in my presence. I reviewed and verified all information documented by the medical student and made modifications to such information, when appropriate. I personally performed the physical exam and medical decision making. Sarah Hough, Feb 03, 2022,19:49 SANGEETA GAMING Feb 03, 2022 19:25 SARAH HOUGH DO Feb 03, 2022 19:46
[2022-02-03 20:01] VITALS: BP 110/56
[2022-02-04 00:25] VITALS: BP 100/55
[2022-02-04 04:01] VITALS: BP 111/61
[2022-02-04] MEDS ORDERED: MAGNESIUM 1 GM/100 ML IVPB 100 ML IV SCH (06:00)
[2022-02-04] MEDS ORDERED: KCL 20 MEQ TAB (K-DUR) PO SCH (06:00)
[2022-02-04] MEDS ORDERED: POTASSIUM CL 10MEQ/50ML IVPB 50 ML IV SCH (06:00)
[2022-02-04 06:23] LABS: HEMATOCRIT 37 % (40-54); MEAN CORPUSCULAR HEMOGLOBIN 33 pg (25-34); MEAN CORPUSCULAR HGB CONC 35 g/dL (32-36); MEAN CORPUSCULAR VOLUME 94 fL (80-99); PLATELET COUNT 287 10^3/uL (130-400); WHITE BLOOD COUNT 3.5 10^3/uL (4.3-11.0)
[2022-02-04 06:28] LABS: POTASSIUM 3.5 MMOL/L (3.6-5.0)
[2022-02-04 06:30] LABS: CALCIUM 8.2 MG/DL (8.5-10.1)
[2022-02-04 06:34] LABS: CREATININE SERUM 0.78 MG/DL (0.60-1.30)
[2022-02-04 06:36] LABS: MAGNESIUM 1.7 MG/DL (1.6-2.4)
[2022-02-04] MEDS ORDERED: KCL 8 MEQ (MICRO K) TABLET PO ONE (06:45)
[2022-02-04] MEDS ORDERED: KCL 20 MEQ TAB (K-DUR) PO ONE (06:45)
[2022-02-04] MEDS: MAGNESIUM 1 GM/100 ML IVPB 100 ML IV SCH ×2 (06:49→07:54)
[2022-02-04 07:47] VITALS: BP 116/59
--- NOTE | 2022-02-04 07:58 | Progress Note - Surgery ---
SANGEETA GAMING 02/04/22 0758: Subjective Date Seen by a Provider: Feb 04, 2022 Time Seen by a Provider: 07:55 Subjective/Events-last exam Patient is feeling a lot better. Reports mild generalized abdominal pain still and diarrhea this AM. Denies any vomiting. Focused Exam Lactate Level 02/03/22 15:30: Lactic Acid Level 0.83 Objective Exam Vital Signs Date Time Temp Pulse Resp B/P (MAP) Pulse Ox O2 Delivery O2 Flow Rate FiO2 02/04/22 07:47 36.8 76 18 116/59 (78) 94 Room Air 02/04/22 04:01 37.0 82 18 111/61 (78) 94 Room Air 02/04/22 00:25 36.4 76 20 100/55 (70) 95 Room Air 02/03/22 20:45 Room Air 02/03/22 20:01 36.7 68 20 110/56 (74) 96 Room Air 02/03/22 16:41 Room Air 02/03/22 16:30 36.4 81 20 151/74 (99) 92 Room Air 02/03/22 16:26 36.4 72 14 118/75 98 Room Air 02/03/22 11:47 36.4 99 18 151/89 (109) 95 Room Air I & O 02/04/22 07:00 Intake Total 1810 ml Output Total 625 ml Balance 1185 ml Capillary Refill : Less Than 3 Seconds General Appearance: No Apparent Distress, WD/WN HEENT: PERRL/EOMI Neck: Full Range of Motion, Normal Inspection Respiratory: Lungs Clear, Normal Breath Sounds, No Accessory Muscle Use, No Respiratory Distress Cardiovascular: Regular Rate, Rhythm, No Murmur Gastrointestinal: soft, distended (minimal), tenderness (mild generalized t enderness) Extremity: Normal Inspection, Normal Range of Motion Neurologic/Psychiatric: Alert, Oriented x3, Normal Mood/Affect Skin: Normal Color; No Rash Lymphatic: No Adenopathy Results Lab Laboratory Tests 02/03/22 12:20: White Blood Count 3.6L, Red Blood Count 4.53, Hemoglobin 14.9, Hematocrit 42, Mean Corpuscular Volume 93, Mean Corpuscular Hemoglobin 33, Mean Corpuscular Hemoglobin Concent 35, Red Cell Distribution Width 11.9, Platelet Count 347, Mean Platelet Volume 9.0, Immature Granulocyte % (Auto) 0, Neutrophils (%) (Auto) 40L, Lymphocytes (%) (Auto) 36, Monocytes (%) (Auto) 18H, Eosinophils (%) (Auto) 5, Basophils (%) (Auto) 1, Neutrophils # (Auto) 1.5L, Lymphocytes # (Auto) 1.3, Monocytes # (Auto) 0.6, Eosinophils # (Auto) 0.2, Basophils # (Auto) 0.0, Immature Granulocyte # (Auto) 0.0, Sodium Level 133L, Potassium Level 3.5L, Chloride Level 99, Carbon Dioxide Level 21, Anion Gap 13, Blood Urea Nitrogen 13, Creatinine 0.84, Estimat Glomerular Filtration Rate 89, BUN/Creatinine Ratio 15, Glucose Level 162H, Calcium Level 8.7, Corrected Calcium 9.3, Magnesium Level 1.7, Total Bilirubin 0.7, Aspartate Amino Transf (AST/SGOT) 23, Alanine Aminotransferase (ALT/SGPT) 43, Alkaline Phosphatase 66, Troponin I < 0.028, C- Reactive Protein High Sensitivity 4.49H, B-Type Natriuretic Peptide 64.4, Total Protein 5.5L, Albumin 3.3, Lipase 11, Monoscreen NEGATIVE 02/03/22 12:47: Influenza Type A (RT-PCR) Not Detected, Influenza Type B (RT-PCR) Not Detected, SARS-CoV-2 RNA (RT-PCR) Not Detected 02/03/22 13:32: Urine Color DARK YELLOW, Urine Clarity SL CLOUDY, Urine pH 6.0, Urine Specific [place] 1.020, Urine Protein TRACEH, Urine Glucose (UA) NEGATIVE, Urine Ketones 2+H, Urine Nitrite POSITIVEH, Urine Bilirubin NEGATIVE, Urine Urobilinogen 1.0, Urine Leukocyte Esterase 1+H, Urine RBC (Auto) TRACE-IH, Urine RBC 0-2, Urine WBC 25-50H, Urine Squamous Epithelial Cells 0-2, Urine Crystals NONE, Urine Bacteria LARGEH, Urine Casts NONE, Urine Mucus NEGATIVE, Urine Culture Indicated YES 02/03/22 15:30: Lactic Acid Level 0.83 02/04/22 06:11: White Blood Count 3.5L, Red Blood Count 3.92L, Hemoglobin 13.0L, Hematocrit 37L, Mean Corpuscular Volume 94, Mean Corpuscular Hemoglobin 33, Mean Corpuscular Hemoglobin Concent 35, Red Cell Distribution Width 12.0, Platelet Count 287, Mean Platelet Volume 9.0, Sodium Level 133L, Potassium Level 3.5L, Chloride Level 102, Carbon Dioxide Level 21, Anion Gap 10, Blood Urea Nitrogen 10, Creati nine 0.78, Estimat Glomerular Filtration Rate 91, BUN/Creatinine Ratio 13, Glucose Level 115H, Calcium Level 8.2L, Magnesium Level 1.7 Microbiology 02/03/22 Urine Culture - Preliminary, Resulted Gram Negative Hai Gram Negative Hai#2 Assessment/Plan Assessment/Plan Assessment/Plan stage 4 rectal cancer nonoperative management at Patient to start liquid diet. Continue chemotherapy management at . JEREL ALFARO DO 02/04/222106: Subjective Subjective/Events-last exam Patient feeling a lot better today. He is passing flatus. He had a bowel movement. Minimal discomfort throughout abdomen. Tolerating clears. He denies any nausea vomiting fever sweats chills shortness of breath or chest pain at this time. Objective Exam General Appearance: No Apparent Distress, WD/WN HEENT: PERRL/EOMI, Normal ENT Inspection Neck: Normal Inspection, Non Tender Respiratory: Chest Non Tender, No Accessory Muscle Use, No Respiratory Distress Cardiovascular: Regular Rate, Rhythm, No JVD Gastrointestinal: soft, distended (minimal to none) Extremity: Normal Inspection, Normal Range of Motion Neurologic/Psychiatric: Alert, Oriented x3, Normal Mood/Affect Skin: Normal Color, Warm/Dry Lymphatic: No Adenopathy Assessment/Plan Assessment/Plan Assessment/Plan Per small bowel obstruction questional secondary to further metastatic patho logy. Currently having bowel function and feeling better. Stage IV rectal cancer nonoperative management at . Patient feeling better and tolerating liquids can slowly try to advance diet. If does not improve would then get small bowel follow-through to further evaluate. Supervisory-Addendum Brief Verification & Attestation Participated in pt care: history, MDM, physical Personally performed: exam, history, MDM, supervision of care Care discussed with: Medical Student Procedures: n/a Results interpretation: Verified all documentation Verification and Attestation of Medical Student E/M Service A medical student performed and documented this service in my presence. I reviewed and verified all information documented by the medical student and made modifications to such information, when appropriate. I personally performed the physical exam and medical decision making. Jerel Alfaro Feb 04, 2022,21:07 SANGEETA GAMING Feb 04, 2022 07:58 JEREL ALFARO DO Feb 04, 2022 21:07
[2022-02-04 11:28] VITALS: BP 145/81
[2022-02-04] MEDS ORDERED: OXYC5TAB PO (12:07)
[2022-02-04] MEDS ORDERED: CLOP75TA28 PO (12:23)
[2022-02-04] MEDS ORDERED: GLMP2T PO (12:23)
[2022-02-04] MEDS ORDERED: HEParin (CENTRAL IV FLUSH) 500 UNIT/5 ML SYR IV ONE (12:30)
[2022-02-04 13:47] VITALS: BP 145/81
--- NOTE | 2022-02-11 13:52 | Clinic Account Progress/Dx ---
Radha Mejia Feb 11, 2022 13:52
== END 2022-02-04 12:01 | disposition home or self-care (01) ==
LOC: EDUNIT# 11:40 → ER 11:41 → 4TH 14:44 → UNDOADMOB 14:44 → 4TH 16:37 → UNDODISOB 02-04 13:40
PROVIDERS: ADMIT Internal Medicine; ATTEND Internal Medicine
DX: C20 Malignant neoplasm of rectum (principal); K56.600 Partial intestinal obstruction, unspecified as to cause; N39.0 Urinary tract infection, site not specified; Z79.82 Long term (current) use of aspirin
CPT/HCPCS: 71045; 74177; 80048; 80053; 81000; 83605; 83690; 83735 ×2; 83880; 84484; 85025; 85027; 86141; 86308; 87040 ×2; 87077; 87088; 87186; 87636; 93005; 96366; 96372; 99283; G0378; 36415

== ENCOUNTER 2022-02-26 10:52 | Outpatient (RCR) | payer MEDICARE ==
[2022-02-10 10:40] LABS: BASOPHILS % (AUTO) 1 % (0-10); EOSINOPHILS # (AUTO) 0.3 10^3/uL (0.0-0.3); EOSINOPHILS % (AUTO) 5 % (0-10); HEMATOCRIT 33 % (40-54); HEMOGLOBIN 11.4 g/dL (13.3-17.7); LYMPHOCYTES # (AUTO) 1.5 10^3/uL (1.0-4.0); LYMPHOCYTES % (AUTO) 26 % (12-44); MEAN CORPUSCULAR HEMOGLOBIN 34 pg (25-34); MEAN CORPUSCULAR HGB CONC 34 g/dL (32-36); MEAN CORPUSCULAR VOLUME 98 fL (80-99); MEAN PLATELET VOLUME 8.7 fL (9.0-12.2); MONOCYTES # (AUTO) 0.6 10^3/uL (0.0-1.0); MONOCYTES % (AUTO) 10 % (0-12); NEUTROPHILS # (AUTO) 3.2 10^3/uL (1.8-7.8); NEUTROPHILS % (AUTO) 57 % (42-75); PLATELET COUNT 277 10^3/uL (130-400); WHITE BLOOD COUNT 5.6 10^3/uL (4.3-11.0)
[2022-02-10 11:00] LABS: ALBUMIN 3.1 GM/DL (3.2-4.5); BILIRUBIN,TOTAL 0.3 MG/DL (0.1-1.0); CALCIUM 8.6 MG/DL (8.5-10.1); CREATININE SERUM 0.79 MG/DL (0.60-1.30); POTASSIUM 3.9 MMOL/L (3.6-5.0); TOTAL PROTEIN 5.1 GM/DL (6.4-8.2)
[2022-02-24 10:53] LABS: BASOPHILS % (AUTO) 0 % (0-10); EOSINOPHILS # (AUTO) 0.1 10^3/uL (0.0-0.3); EOSINOPHILS % (AUTO) 2 % (0-10); HEMATOCRIT 44 % (40-54); HEMOGLOBIN 14.9 g/dL (13.3-17.7); LYMPHOCYTES # (AUTO) 1.5 10^3/uL (1.0-4.0); LYMPHOCYTES % (AUTO) 23 % (12-44); MEAN CORPUSCULAR HEMOGLOBIN 33 pg (25-34); MEAN CORPUSCULAR HGB CONC 34 g/dL (32-36); MEAN CORPUSCULAR VOLUME 96 fL (80-99); MEAN PLATELET VOLUME 8.9 fL (9.0-12.2); MONOCYTES % (AUTO) 14 % (0-12); NEUTROPHILS % (AUTO) 60 % (42-75); PLATELET COUNT 327 10^3/uL (130-400); WHITE BLOOD COUNT 6.7 10^3/uL (4.3-11.0)
[2022-02-24 11:12] LABS: ALBUMIN 3.3 GM/DL (3.2-4.5); BILIRUBIN,TOTAL 0.5 MG/DL (0.1-1.0); CREATININE SERUM 0.85 MG/DL (0.60-1.30); POTASSIUM 4.1 MMOL/L (3.6-5.0); TOTAL PROTEIN 5.4 GM/DL (6.4-8.2)
[~2022-02-26 10:52] MED LIST changes: +ATROPINE INJ 0.4 MG/ML SDV IV SCH; +D5W IV SCH; +FAMOTIDINE 20MG/2ML IV (PEPCID) IV PRN; +FLUOROURACIL IV SCH; +FOSAPREPITANT (CANCER CENTER) 150 MG in NS (IVPB) CANCER CENTER ONLY 150 ML IV SCH; +GLMP2T PO; +HEParin (CENTRAL IV FLUSH) 500 UNIT/5 ML SYR IV PRN; +IRINOTECAN HCL IV SCH; +NS IV 1000 ML 1,000 ML ONE; +NS IV SCH; +OXYC5TAB PO; +PALONOSETRON HCL 0.25 MG, dexAMETHasone INJECTION 10 MG in NS (IVPB) 50 ML IV SCH; +diphenhydrAMINE 25 MG TAB (BENADRYL) PO SCH
== END 2022-03-05 | disposition home or self-care (01) ==
LOC: ONC 10:52
PROVIDERS: ATTEND Internal Medicine Hematology & Oncology
DX: Z51.11 Encounter for antineoplastic chemotherapy (principal); C19 Malignant neoplasm of rectosigmoid junction; C78.6 Secondary malignant neoplasm of retroperitoneum and peritoneum; G62.9 Polyneuropathy, unspecified; I10 Essential (primary) hypertension; I25.10 Atherosclerotic heart disease of native coronary artery without angina pectoris; E11.9 Type 2 diabetes mellitus without complications; E78.2 Mixed hyperlipidemia; E66.9 Obesity, unspecified
CPT/HCPCS: 36591; 80053; 82378; 85025; 96360; 96361; 96367; 96375; 96411; 96413; 99213

== ENCOUNTER → 2022-03-25 | Outpatient (CLI) | payer MEDICARE ==
[~2022-03-25] MED LIST changes: -ATROPINE INJ 0.4 MG/ML SDV IV SCH; +CATHETER FLUSH 10 ML SYR IV PRN; -D5W IV SCH; -FAMOTIDINE 20MG/2ML IV (PEPCID) IV PRN; -FLUOROURACIL IV SCH; -FOSAPREPITANT (CANCER CENTER) 150 MG in NS (IVPB) CANCER CENTER ONLY 150 ML IV SCH; -HEParin (CENTRAL IV FLUSH) 500 UNIT/5 ML SYR IV PRN; +HOLD METFORMIN - RECEIVED CONTRAST 20 ML VIAL IV SCH; +IOHEXOL 350 MG/ML 100 ML (OMNIPAQUE 350) VIAL IV ONE; -IRINOTECAN HCL IV SCH; +NS 100 ML (IVPB) BAG IV ONE; -NS IV 1000 ML 1,000 ML ONE; -NS IV SCH; -PALONOSETRON HCL 0.25 MG, dexAMETHasone INJECTION 10 MG in NS (IVPB) 50 ML IV SCH; -diphenhydrAMINE 25 MG TAB (BENADRYL) PO SCH
--- NOTE | 2022-03-25 12:22 | Diagnostic Imaging Report ---
EXAMINATION: CT chest, abdomen, and pelvis with intravenous contrast. TECHNIQUE: Multiple contiguous axial images were obtained through the chest, abdomen and pelvis after the uneventful administration of intravenous contrast. All CT scans use one or more of the following dose optimizing techniques: automated exposure control, MA and/or KvP adjustment based on patient size and exam type or iterative reconstruction. HISTORY: Colon cancer. COMPARISON: 02/03/2022. FINDINGS: There is no edema or pneumonia. No pleural effusion. No pneumothorax. No suspicious nodules. There is a small amount of mucus in the distal trachea. There is no axillary or supraclavicular lymphadenopathy. There is no mediastinal lymphadenopathy. A right-sided port catheter is present. Heart size is normal. There are moderate coronary artery calcifications. No pericardial effusion. Aorta is normal in caliber. Simple cyst in the liver is unchanged. No new liver lesions. There is no biliary ductal dilation. Gallbladder is normal. Pancreas is normal. Spleen is normal. Adrenal glands are normal. There is a simple cyst in the left kidney. No suspicious renal lesions. There is no hydronephrosis. Urinary bladder diverticulum on the right is unchanged. There is unchanged masslike thickening of the terminal ileum and cecum with upstream dilation of the distal ileum. There is unchanged omental stranding. No free fluid or air. No abdominal or pelvic lymphadenopathy. Aorta is normal in caliber without aneurysm. There are no suspicious osseus lesions. IMPRESSION: 1. Unchanged masslike thickening at the ileocecal valve with upstream dilatation of the small bowel, concerning for a colon malignancy, with delayed transit due to partial obstruction. 2. Stable omental stranding. 3. No metastatic disease in the chest. Dictated by: Dictated on workstation # [id number]
== END ==
LOC: RAD 10:15
PROVIDERS: ATTEND Internal Medicine Hematology & Oncology
DX: C18.9 Malignant neoplasm of colon, unspecified (principal); C78.6 Secondary malignant neoplasm of retroperitoneum and peritoneum
CPT/HCPCS: 71260; 74177

== ENCOUNTER 2022-03-27 10:45 | Outpatient (RCR) | payer MEDICARE ==
[2022-03-12 10:05] LABS: BASOPHILS % (AUTO) 0 % (0-10); EOSINOPHILS # (AUTO) 0.2 10^3/uL (0.0-0.3); EOSINOPHILS % (AUTO) 3 % (0-10); HEMATOCRIT 42 % (40-54); HEMOGLOBIN 14.5 g/dL (13.3-17.7); LYMPHOCYTES % (AUTO) 28 % (12-44); MEAN CORPUSCULAR HEMOGLOBIN 33 pg (25-34); MEAN CORPUSCULAR HGB CONC 35 g/dL (32-36); MEAN CORPUSCULAR VOLUME 96 fL (80-99); MEAN PLATELET VOLUME 8.9 fL (9.0-12.2); MONOCYTES # (AUTO) 0.8 10^3/uL (0.0-1.0); MONOCYTES % (AUTO) 12 % (0-12); NEUTROPHILS # (AUTO) 3.9 10^3/uL (1.8-7.8); NEUTROPHILS % (AUTO) 56 % (42-75); PLATELET COUNT 368 10^3/uL (130-400)
[2022-03-12 10:26] LABS: ALBUMIN 3.1 GM/DL (3.2-4.5); BILIRUBIN,TOTAL 0.6 MG/DL (0.1-1.0); CALCIUM 8.8 MG/DL (8.5-10.1); CREATININE SERUM 0.86 MG/DL (0.60-1.30); POTASSIUM 3.9 MMOL/L (3.6-5.0); TOTAL PROTEIN 5.7 GM/DL (6.4-8.2)
[2022-03-21 09:40] LABS: BASOPHILS % (AUTO) 1 % (0-10); EOSINOPHILS # (AUTO) 0.1 10^3/uL (0.0-0.3); EOSINOPHILS % (AUTO) 2 % (0-10); HEMATOCRIT 43 % (40-54); HEMOGLOBIN 15.2 g/dL (13.3-17.7); LYMPHOCYTES # (AUTO) 3.2 10^3/uL (1.0-4.0); LYMPHOCYTES % (AUTO) 52 % (12-44); MEAN CORPUSCULAR HEMOGLOBIN 33 pg (25-34); MEAN CORPUSCULAR HGB CONC 35 g/dL (32-36); MEAN CORPUSCULAR VOLUME 93 fL (80-99); MEAN PLATELET VOLUME 8.7 fL (9.0-12.2); MONOCYTES # (AUTO) 0.8 10^3/uL (0.0-1.0); MONOCYTES % (AUTO) 13 % (0-12); NEUTROPHILS # (AUTO) 1.9 10^3/uL (1.8-7.8); NEUTROPHILS % (AUTO) 32 % (42-75); PLATELET COUNT 380 10^3/uL (130-400); WHITE BLOOD COUNT 6.1 10^3/uL (4.3-11.0)
[2022-03-21 10:06] LABS: BILIRUBIN,TOTAL 0.4 MG/DL (0.1-1.0); CALCIUM 8.5 MG/DL (8.5-10.1); POTASSIUM 3.8 MMOL/L (3.6-5.0); TOTAL PROTEIN 5.3 GM/DL (6.4-8.2)
[2022-03-24 09:45] LABS: BASOPHILS % (AUTO) 1 % (0-10); EOSINOPHILS # (AUTO) 0.1 10^3/uL (0.0-0.3); EOSINOPHILS % (AUTO) 2 % (0-10); HEMATOCRIT 41 % (40-54); HEMOGLOBIN 14.3 g/dL (13.3-17.7); LYMPHOCYTES # (AUTO) 2.5 10^3/uL (1.0-4.0); LYMPHOCYTES % (AUTO) 39 % (12-44); MEAN CORPUSCULAR HEMOGLOBIN 33 pg (25-34); MEAN CORPUSCULAR HGB CONC 35 g/dL (32-36); MEAN CORPUSCULAR VOLUME 95 fL (80-99); MEAN PLATELET VOLUME 8.9 fL (9.0-12.2); MONOCYTES # (AUTO) 0.8 10^3/uL (0.0-1.0); MONOCYTES % (AUTO) 12 % (0-12); NEUTROPHILS % (AUTO) 46 % (42-75); PLATELET COUNT 349 10^3/uL (130-400); WHITE BLOOD COUNT 6.5 10^3/uL (4.3-11.0)
[2022-03-24 10:11] LABS: ALBUMIN 2.8 GM/DL (3.2-4.5); BILIRUBIN,TOTAL 0.4 MG/DL (0.1-1.0); CALCIUM 8.5 MG/DL (8.5-10.1); CREATININE SERUM 1.04 MG/DL (0.60-1.30); POTASSIUM 3.7 MMOL/L (3.6-5.0); TOTAL PROTEIN 4.8 GM/DL (6.4-8.2)
[~2022-03-27 10:45] MED LIST changes: +ATROPINE INJ 0.4 MG/ML SDV IV SCH; +BEVACIZUMAB BVZR IV SCH; -CATHETER FLUSH 10 ML SYR IV PRN; +D5W IV SCH; +FAMOTIDINE 20MG/2ML IV (PEPCID) IV PRN; +FLUOROURACIL IV SCH; +FOSAPREPITANT (CANCER CENTER) 150 MG in NS (IVPB) CANCER CENTER ONLY 150 ML IV SCH; +HEParin (CENTRAL IV FLUSH) 500 UNIT/5 ML SYR IV PRN; -HOLD METFORMIN - RECEIVED CONTRAST 20 ML VIAL IV SCH; -IOHEXOL 350 MG/ML 100 ML (OMNIPAQUE 350) VIAL IV ONE; +IRINOTECAN HCL IV SCH; -NS 100 ML (IVPB) BAG IV ONE; +NS IV 1000 ML 1,000 ML ONE; +NS IV 500 ML 500 ML IV SCH; +NS IV SCH; +PALONOSETRON HCL 0.25 MG, dexAMETHasone INJECTION 10 MG in NS (IVPB) 50 ML IV SCH; +diphenhydrAMINE 25 MG TAB (BENADRYL) PO SCH; +fluorouraciL 4,800 MG in NS (IVPB) 51.2 ML IV SCH
== END 2022-04-04 | disposition home or self-care (01) ==
LOC: ONC 10:45
PROVIDERS: ATTEND Internal Medicine Hematology & Oncology
DX: Z45.2 Encounter for adjustment and management of vascular access device (principal); C19 Malignant neoplasm of rectosigmoid junction; C78.6 Secondary malignant neoplasm of retroperitoneum and peritoneum; G62.9 Polyneuropathy, unspecified; I10 Essential (primary) hypertension; I25.10 Atherosclerotic heart disease of native coronary artery without angina pectoris; E11.9 Type 2 diabetes mellitus without complications; E78.2 Mixed hyperlipidemia; E66.9 Obesity, unspecified
CPT/HCPCS: 80053; 82378; 85025; 96360; 96361; 96367; 96375; 96411; 96413; 96521; G0463; 36415; 36591; 99213